=== PATIENT | female | born 1985 | race Caucasian/White ===

== ENCOUNTER 2017-01-17 08:29 | Emergency (ER) | payer OTHER ==
[2017-01-17 08:37] VITALS: TEMP 98.9
[2017-01-17] MEDS ORDERED: SODIUM CHLORIDE 0.9% 1,000 ML IV STA (08:49)
[2017-01-17] MEDS ORDERED: ONDANSETRON 4 MG/2 ML VIAL IVP STA (08:49)
[2017-01-17] MEDS ORDERED: KETOROLAC 30 MG/ML 1 ML VIAL IVP STA (08:49)
--- NOTE | 2017-01-17 08:57 | ED ---
Abdominal Pain HPI - General Chief Complaint: Abdominal Pain Stated Complaint: BACK PAIN, NAUSEA, ABDOMINAL PAIN Time Seen by Provider: 01/17/17 08:38 Source: patient, RN notes reviewed Mode of arrival: ambulatory Limitations: no limitations - History of Present Illness Initial Comments: 32-year-old female presents to the emergency department with a chief complaint of back pain abdominal pain. Patient states she's had it for the past few days. Patient states that she feels bloated with some nausea. Patient states that she has a history kidney stones her back pain feels much like that but the abdominal bloating is different. Patient denies any changes in urination any blood in the urine. Patient states she is currently finishing her menstrual cycle. Patient states she has not had any fever chills with this. Patient states that she also assessed by her family. States that she is also significantly that her today as well. He denies any pelvic pain or discomfort. Patient states that she is here to be evaluated. Patient states pain is moderate. Patient states that there is no radiation just seems to be in those 2 spots.Patient denies any recent fever, chills, shortness of breath, chest pain , numbness or tingling, dysuria or hematuria, constipation or diarrhea, headaches or visual changes, or any other current symptoms. - Related Data Home Medications Medication Instructions Recorded Confirmed Ibuprofen [Motrin] 800 mg PO Q8HR PRN 01/17/17 01/17/17 Multivitamins, Thera [Multivitamin] 1 tab PO DAILY 01/17/17 01/17/17 Previous Rx's Medication Instructions Recorded Hydrocodone/Acetaminophen [[place] 1 each PO Q6HR PRN #20 tab 01/17/17 5-325] Ketorolac [Toradol] 10 mg PO Q6HR #20 tab 01/17/17 Ondansetron Odt [Zofran ODT] 4 mg PO Q8HR PRN #20 tab 01/17/17 Tamsulosin [Flomax] 0.4 mg PO DAILY #5 cap 01/17/17 Allergies Allergy/AdvReac Type Severity Reaction Status Date / Time hydrochlorothiazide Allergy Unknown Verified 01/17/17 08:56 Review of Systems ROS Statement: Those systems with pertinent positive or pertinent negative responses have been documented in the HPI. ROS Other: All systems not noted in ROS Statement are negative. Past Medical History Past Medical History: No Reported History Additional Past Medical History / Comment(s): kidney stones History of Any Multi-Drug Resistant Organisms: MRSA Date of last positivie culture/infection: 2015 MDRO Source:: GROIN Past Surgical History: Section, Cholecystectomy Additional Past Surgical History / Comment(s): laser kidney stone removal Past Psychological History: No Psychological Hx Reported Smoking Status: Current every day smoker Past Alcohol Use History: None Reported Past Drug Use History: None Reported General Exam - General Exam Comments Initial Comments: General: The patient is awake and alert, in no distress, and does not appear acutely ill. Eye: Pupils are equal, round and reactive to light, extra-ocular movements are intact; there is normal conjunctiva bilaterally. No signs of icterus. Ears, nose, mouth and throat: There are moist mucous membranes and no oral lesions. Neck: The neck is supple, there is no tenderness. Cardiovascular: There is a regular rate and rhythm. No murmur, rub or gallop is appreciated. Respiratory: Lungs are clear to auscultation, respirations are non-labored, breath sounds are equal. No wheezes, stridor, rales, or rhonchi. Gastrointestinal: Soft, non-distended, non-tender abdomen without masses or organomegaly noted. There is no rebound or guarding present. No CVA tenderness. Bowel sounds are unremarkable. Back: There is no tenderness to palpation in the midline. There is no obvious deformity. No rashes noted. Musculoskeletal: Normal ROM, no tenderness, There is no pedal edema. There is no calf tenderness or swelling. Sensation intact. Pulses equal bilaterally 2+. Neurological: CN II-XII intact, There are no obvious motor or sensory deficits. Coordination appears grossly intact. Speech is normal. Skin: Skin is warm and dry and no rashes or lesions are noted. Psychiatric: Cooperative, appropriate mood & affect, normal judgment. Limitations: no limitations Course Vital Signs 01/17/17 01/17/17 08:34 09:04 Temperature 98.9 F Pulse Rate 105 H 92 Respiratory 20 16 Rate Blood Pressure 141/69 136/72 O2 Sat by Pulse 99 98 Oximetry Medical Decision Making - Medical Decision Making 32-year-old female presents emergency Department chief complaint of back pain. Patient does have blood in the urine the CAT scan initially 2 mm kidney stone but nothing in the ureter. The suspicion is patient most likely does have a ureteral stone that maybe his chest as well as she has recently passed. She states that the pain is much like that feeling difference with little bit of bloating. Patient's CAT scan is reviewed and the results were reviewed discussed with radiologist Dr. Christianson patient states he did not see the appendix however he also did not see any swelling or irritation around the appendix area to be suspicious for appendicitis. At this time we discussed with the patient. We discussed that this medication is most likely the pain is due to a possible stone however we discussed other etiologies discussed return parameters and follow-up. Patient states she understood she is given the plan. Patient was offered a pelvic exam she states she slept testing on the urine to help with her doctor for pelvic pain and states that she understood and all his questions have been answered. She'll be discharged home. - Lab Data Result diagrams: 01/17/17 08:50 01/17/17 08:50 Lab Results 01/17/17 01/17/17 01/17/17 Range/Units 08:50 08:50 08:50 WBC 13.9 H (3.8-10.6) k/uL RBC 4.42 (3.80-5.40) m/uL Hgb 12.4 (11.4-16.0) gm/dL Hct 38.5 (34.0-46.0) % MCV 87.2 (80.0-100.0) fL MCH 28.0 (25.0-35.0) pg MCHC 32.1 (31.0-37.0) g/dL RDW 14.9 (11.5-15.5) % Plt Count 273 (150-450) k/uL Neutrophils % 69 % Lymphocytes % 23 % Monocytes % 4 % Eosinophils % 3 % Basophils % 1 % Neutrophils # 9.6 H (1.3-7.7) k/uL Lymphocytes # 3.1 (1.0-4.8) k/uL Monocytes # 0.6 (0-1.0) k/uL Eosinophils # 0.4 (0-0.7) k/uL Basophils # 0.1 (0-0.2) k/uL Sodium 144 (137-145) mmol/L Potassium 4.2 (3.5-5.1) mmol/L Chloride 111 H (98-107) mmol/L Carbon Dioxide 20 L (22-30) mmol/L Anion Gap 13 mmol/L BUN 14 (7-17) mg/dL Creatinine 0.70 (0.52-1.04) mg/dL Est GFR (MDRD) Af Amer >60 (>60 ml/min/1.73 sqM) Est GFR (MDRD) Non-Af >60 (>60 ml/min/1.73 sqM) Glucose 100 H (74-99) mg/dL Calcium 9.0 (8.4-10.2) mg/dL Total Bilirubin 0.3 (0.2-1.3) mg/dL AST 17 (14-36) U/L ALT 17 (9-52) U/L Alkaline Phosphatase 80 (38-126) U/L Total Protein 7.4 (6.3-8.2) g/dL Albumin 3.8 (3.5-5.0) g/dL Amylase 58 (30-110) U/L Lipase 70 (23-300) U/L Urine Color Urine Appearance (Clear) Urine pH (5.0-8.0) Ur Specific [place] (1.001-1.035) Urine Protein (Negative) Urine Glucose (UA) (Negative) Urine Ketones (Negative) Urine Blood (Negative) Urine Nitrate (Negative) Urine Bilirubin (Negative) Urine Urobilinogen (<2.0) mg/dL Ur Leukocyte Esterase (Negative) Urine RBC (0-5) /hpf Urine WBC (0-5) /hpf Ur Squamous Epith Cells (0-4) /hpf Urine Mucus (None) /hpf Urine HCG, Qual Not Detected (Not Detectd) 01/17/17 Range/Units 08:50 WBC (3.8-10.6) k/uL RBC (3.80-5.40) m/uL Hgb (11.4-16.0) gm/dL Hct (34.0-46.0) % MCV (80.0-100.0) fL MCH (25.0-35.0) pg MCHC (31.0-37.0) g/dL RDW (11.5-15.5) % Plt Count (150-450) k/uL Neutrophils % % Lymphocytes % % Monocytes % % Eosinophils % % Basophils % % Neutrophils # (1.3-7.7) k/uL Lymphocytes # (1.0-4.8) k/uL Monocytes # (0-1.0) k/uL Eosinophils # (0-0.7) k/uL Basophils # (0-0.2) k/uL Sodium (137-145) mmol/L Potassium (3.5-5.1) mmol/L Chloride (98-107) mmol/L Carbon Dioxide (22-30) mmol/L Anion Gap mmol/L BUN (7-17) mg/dL Creatinine (0.52-1.04) mg/dL Est GFR (MDRD) Af Amer (>60 ml/min/1.73 sqM) Est GFR (MDRD) Non-Af (>60 ml/min/1.73 sqM) Glucose (74-99) mg/dL Calcium (8.4-10.2) mg/dL Total Bilirubin (0.2-1.3) mg/dL AST (14-36) U/L ALT (9-52) U/L Alkaline Phosphatase (38-126) U/L Total Protein (6.3-8.2) g/dL Albumin (3.5-5.0) g/dL Amylase (30-110) U/L Lipase (23-300) U/L Urine Color Light Red Urine Appearance Cloudy H (Clear) Urine pH 5.5 (5.0-8.0) Ur Specific [place] 1.024 (1.001-1.035) Urine Protein 1+ H (Negative) Urine Glucose (UA) Negative (Negative) Urine Ketones Trace H (Negative) Urine Blood Large H (Negative) Urine Nitrate Negative (Negative) Urine Bilirubin Negative (Negative) Urine Urobilinogen 2.0 (<2.0) mg/dL Ur Leukocyte Esterase Large H (Negative) Urine RBC >182 H (0-5) /hpf Urine WBC 84 H (0-5) /hpf Ur Squamous Epith Cells 3 (0-4) /hpf Urine Mucus Moderate H (None) /hpf Urine HCG, Qual (Not Detectd) - Radiology Data Radiology results: report reviewed, image reviewed Disposition Clinical Impression: Flank pain, Hematuria Disposition: HOME SELF-CARE Condition: Stable Instructions: Abdominal Pain (ED) Additional Instructions: Please use medication as discussed. Please follow up with family doctor if symptoms have not improved over the next two days. Please return to the emergency room if your symptoms increase or worsen or for any other concerns. Prescriptions: Hydrocodone/Acetaminophen [[place] 5-325] 1 each PO Q6HR PRN #20 tab PRN Reason: Pain Ketorolac [Toradol] 10 mg PO Q6HR #20 tab Ondansetron Odt [Zofran ODT] 4 mg PO Q8HR PRN #20 tab PRN Reason: Nausea Tamsulosin [Flomax] 0.4 mg PO DAILY #5 cap Referrals: Marie Washington MD [Primary Care Provider] - 1-2 days Benjamin Aguilar MD [STAFF PHYSICIAN] - 1-2 days Time of Disposition: 10:42
[2017-01-17 09:05] LABS: Basophils # (A) 0.1 k/uL (0-0.2); Basophils % (A) 1 %; CHCM 32.3; Eosinophils # (A) 0.4 k/uL (0-0.7); Eosinophils % (A) 3 %; HCT 38.5 % (34.0-46.0); HDW 2.58; HGB 12.4 gm/dL (11.4-16.0); Luc # (Auto) 0.15; Luc % (Auto) 1; Lymphocytes # (A) 3.1 k/uL (1.0-4.8); Lymphocytes % (A) 23 %; MCHC 32.1 g/dL (31.0-37.0); MCV 87.2 fL (80.0-100.0); Monocytes # (A) 0.6 k/uL (0-1.0); Monocytes % (A) 4 %; Neutrophils # (A) 9.6 k/uL (1.3-7.7); Neutrophils % (A) 69 %; RBC 4.42 m/uL (3.80-5.40); RDW 14.9 % (11.5-15.5); WBC 13.9 k/uL (3.8-10.6)
[2017-01-17 09:12] LABS: Appearance,Urine Cloudy (Clear); Bilirubin,Urine Negative (Negative); Glucose,Urine (UA) Negative (Negative); Ketones,Urine Trace (Negative); Leukocyte Esterase,Urine Large (Negative); Mucus,Urine Moderate /hpf; Nitrite,Urine Negative (Negative); PH, Urine 5.5 (5.0-8.0); Particle Count 9736; Protein,Urine 1+ (Negative); RBC,Urine >182 /hpf (0-5); Specific Gravity,Urine 1.024 (1.001-1.035); Squamous Epithelial Cell,Urine 3 /hpf (0-4); UA Billing (MACRO vs. MICRO) MICRO; WBC,Urine 84 /hpf (0-5)
[2017-01-17 09:16] LABS: ALT 17 U/L (9-52); AST 17 U/L (14-36); Alkaline Phosphatase 80 U/L (38-126); Amylase 58 U/L (30-110); Anion Gap 13 mmol/L; Blood Urea Nitrogen 14 mg/dL (7-17); Carbon Dioxide 20 mmol/L (22-30); Chloride 111 mmol/L (98-107); Glucose 100 mg/dL (74-99); Non-African American GFR(MDRD) >60 (>60 ml/min/1.73 sqM); Potassium 4.2 mmol/L (3.5-5.1); Sodium 144 mmol/L (137-145); Total Bilirubin 0.3 mg/dL (0.2-1.3); Total Protein 7.4 g/dL (6.3-8.2)
--- NOTE | 2017-01-17 09:35 | XR ---
EXAMINATION TYPE: XR KUB DATE OF EXAM: 01/17/2017 9:25 AM CLINICAL HISTORY: Left posterior abdominal pain since Sunday. TECHNIQUE: 2 upright KUB images of the abdomen are obtained. COMPARISON: CT abdomen and pelvis April 08, 2016. FINDINGS: Scattered gas is seen in non-distended stomach and small bowel loops. Gas and fecal mater ial is seen in non-distended colon. Loss of normal haustral distal left colon could reflect spasm michael mary colitis. Metallic IUD is redemonstrated overlying the pelvis. Cholecystectomy clips are present. No pneumoperitoneum is seen. Lung bases are clear. Osseous structures are intact. IMPRESSION: Overall nonobstructive bowel gas pattern. Possible left lower quadrant colitis. Clinical correlation advised.
--- NOTE | 2017-01-17 10:32 | CT ---
EXAMINATION TYPE: CT abdomen pelvis wo con DATE OF EXAM: 01/17/2017 10:15 AM COMPARISON: Previous study dated 04/08/2016 HISTORY: Back pain and nausea CT DLP: 1735.80 mGycm Automated exposure control for dose reduction was used. FINDINGS: Visualized portions of the lungs are clear. There is no pleural or pericardial fluid. The h eart is not enlarged. Within the abdomen, the gallbladder has been removed. The liver and spleen are normal. Both adrenal glands are normal. There is a 3 mm nonobstructing calculus in the posterior upper pole calyx of the left kidney. The kid neys are otherwise unremarkable. There is no evidence of hydronephrosis. Limited views of the pancreas are normal. There is no significant retroperitoneal, iliac or inguinal adenopathy. The bladder is unremarkable. There is an IUCD within the uterus. Both ovaries are normal. There is no significant diverticular change and there is no evidence of diverticulitis. There is appe ndix is not visualized. Small bowel loops are normal. There is no free fluid and no free air. There is mild hypertrophic spondylosis and degenerative disc disease throughout the thoracic spine. T here is also degenerative disc disease at L5-S1. IMPRESSION: 1. 3 MM, NONOBSTRUCTING CALCULUS IN THE POSTERIOR POLE CALYX OF THE LEFT KIDNEY. 2. MILD DEGENERATIVE CHANGES WITHIN THE SPINE.
[2017-01-17 10:53] VITALS: BP 121/65; PULSE 75; RESP 14
== END 2017-01-17 11:10 | disposition home or self-care (01) ==
LOC: EC 08:29
DX: R10.9 Unspecified abdominal pain (principal); R31.9 Hematuria, unspecified; R11.0 Nausea; M54.9 Dorsalgia, unspecified; R14.0 Abdominal distension (gaseous); N20.0 Calculus of kidney; Z87.442 Personal history of urinary calculi; F17.200 Nicotine dependence, unspecified, uncomplicated; Z86.14 Personal history of Methicillin resistant Staphylococcus aureus infection; Z88.8 Allergy status to other drugs, medicaments and biological substances
CPT/HCPCS: 36415; 80053; 87591; 87491; 82150; 83690; 85025; 81001; 81025; 87040; 87086; 74000; 74176; 99284; 96374; 96375; 96361; J2405; J1885

== ENCOUNTER 2018-02-15 09:21 | Observation (INO) | payer OTHER ==
[2018-02-15] MEDS ORDERED: NALOXONE 0.4 MG/ML 10 ML VIAL IVP STA (09:25)
[2018-02-15] MEDS ORDERED: SODIUM CHLORIDE 0.9% 1,000 ML IV ONE ×2 (09:35→11:14)
[2018-02-15 09:37] LABS: Glucose,Whole Blood 179 mg/dL (75-99)
--- NOTE | 2018-02-15 09:39 | ED ---
General Adult HPI - General Chief complaint: Altered Mental Status Stated complaint: altered mental Time Seen by Provider: 02/15/18 09:21 Source: patient, EMS, RN notes reviewed Mode of arrival: EMS Limitations: no limitations - History of Present Illness Initial comments: This is a 33-year-old female presents emergency Department after she was found unresponsive. EMS got a call from responsiveness when he arrived the patient was unresponsive however with painful stimuli the patient became arousable but was unable to tell them what happened. She did state us that she felt weird so she called a friend and that is when her friend found her unresponsive. Patient denies any drug use. Patient states she's having some chest pain and a mild headache. Patient denies doing anything different this morning. But she' s not fully alert and oriented at this time. Patient denies any abdominal pain. Patient denies any recent fever chills or cough. Patient denies any neck pain. Patient denies any vomiting or diarrhea. Patient denies any injury or trauma. - Related Data Home Medications Medication Instructions Recorded Confirmed Ergocalciferol (Vitamin D2) 50,000 unit PO Q7D 02/15/18 02/15/18 [Vitamin D2] Phentermine HCl [Adipex-P] 37.5 mg PO QAM 02/15/18 02/15/18 metroNIDAZOLE [Flagyl] 2,000 mg PO ONCE 02/15/18 02/15/18 Allergies Allergy/AdvReac Type Severity Reaction Status Date / Time hydrochlorothiazide Allergy Rash/Hives Verified 02/15/18 10:11 Review of Systems ROS Statement: Those systems with pertinent positive or pertinent negative responses have been documented in the HPI. ROS Other: All systems not noted in ROS Statement are negative. Past Medical History Past Medical History: No Reported History, Renal Disease Additional Past Medical History / Comment(s): kidney stones History of Any Multi-Drug Resistant Organisms: MRSA Date of last positivie culture/infection: 2015 MDRO Source:: GROIN Past Surgical History: Section, Cholecystectomy Additional Past Surgical History / Comment(s): laser kidney stone removal Past Psychological History: No Psychological Hx Reported Smoking Status: Current every day smoker Past Alcohol Use History: None Reported Past Drug Use History: None Reported General Exam - General Exam Comments Initial Comments: GENERAL: Patient is well-developed and well-nourished. Patient is nontoxic and well- hydrated and is in mild distress. ENT: Neck is soft and supple. No significant lymphadenopathy is noted. Oropharynx is clear. Moist mucous membranes. Neck has full range of motion without eliciting any pain. EYES: The sclera were anicteric and conjunctiva were pink and moist. Extraocular movements were intact and pupils were equal round and reactive to light. Eyelids were unremarkable. PULMONARY: Unlabored respirations. Good breath sounds bilaterally. No audible rales rhonchi or wheezing was noted. CARDIOVASCULAR: There is a regular rate and rhythm without any murmurs gallops or rub ABDOMEN: Soft and nontender with normal bowel sounds. Patient is morbidly obese SKIN: Skin is clear with no lesions or rashes and otherwise unremarkable. NEUROLOGIC: Patient is alert and oriented 2. Cranial nerves II through XII are grossly intact. Motor and sensory are also intact. Normal speech, volume and content. Symmetrical smile. MUSCULOSKELETAL: Normal extremities with adequate strength and full range of motion. LYMPHATICS: No significant lymphadenopathy is noted PSYCHIATRIC: Unable to assess because she is not fully oriented Limitations: no limitations Course Vital Signs 02/15/18 02/15/18 02/15/18 09:22 09:35 09:52 Temperature 95.9 F L 97.1 F L Pulse Rate 127 H 110 H 96 Respiratory 20 16 16 Rate Blood Pressure 85/49 84/52 108/59 O2 Sat by Pulse 87 L 91 L 98 Oximetry 02/15/18 02/15/18 10:21 10:37 Temperature Pulse Rate 101 H 99 Respiratory 18 16 Rate Blood Pressure 105/62 O2 Sat by Pulse 99 100 Oximetry Medical Decision Making - Medical Decision Making EKG shows sinus tachycardia at 112 bpm AK interval 148 QRSs 84 QT interval 370 QTC is 505. Patient's EKG shows no ST segment elevation or depression or T wave abnormalities are noted. CT of the brain shows no acute abnormality. Chest x-ray shows no acute abnormality. I reevaluated the patient she was now alert and oriented 3 and a friend was at the bedside and agree that she is back to her baseline. Patient had no further information about her unresponsive episode this morning. I spoke with Dr. Peck he agreed to admit the patient admitted the patient I wrote admitting orders - Lab Data Result diagrams: 02/15/18 09:36 02/15/18 09:36 Lab Results 02/15/18 02/15/18 02/15/18 Range/Units 09:35 09:36 09:36 WBC (3.8-10.6) k/uL RBC (3.80-5.40) m/uL Hgb (11.4-16.0) gm/dL Hct (34.0-46.0) % MCV (80.0-100.0) fL MCH (25.0-35.0) pg MCHC (31.0-37.0) g/dL RDW (11.5-15.5) % Plt Count (150-450) k/uL Neutrophils % % Lymphocytes % % Monocytes % % Eosinophils % % Basophils % % Neutrophils # (1.3-7.7) k/uL Lymphocytes # (1.0-4.8) k/uL Monocytes # (0-1.0) k/uL Eosinophils # (0-0.7) k/uL Basophils # (0-0.2) k/uL PT 10.3 (9.0-12.0) sec INR 1.1 (<1.2) APTT 24.2 (22.0-30.0) sec D-Dimer 0.50 (<0.60) mg/L FEU Sodium 143 (137-145) mmol/L Potassium 3.1 L (3.5-5.1) mmol/L Chloride 111 H (98-107) mmol/L Carbon Dioxide 19 L (22-30) mmol/L Anion Gap 13 mmol/L BUN 14 (7-17) mg/dL Creatinine 0.77 (0.52-1.04) mg/dL Est GFR (CKD-EPI)AfAm >90 (>60 ml/min/1.73 sqM) Est GFR (CKD-EPI)NonAf >90 (>60 ml/min/1.73 sqM) Glucose 151 H (74-99) mg/dL POC Glucose (mg/dL) 179 H (75-99) mg/dL POC Glu Fixed Capital Clerk ID McDaid, Amaris Calcium 8.9 (8.4-10.2) mg/dL Total Bilirubin 0.4 (0.2-1.3) mg/dL AST 11 L (14-36) U/L ALT 16 (9-52) U/L Alkaline Phosphatase 82 (38-126) U/L Total Creatine Kinase (30-135) U/L CK-MB (CK-2) (0.0-2.4) ng/mL CK-MB (CK-2) Rel Index Troponin I (0.000-0.034) ng/mL Total Protein 6.6 (6.3-8.2) g/dL Albumin 3.5 (3.5-5.0) g/dL Urine Color Urine Appearance (Clear) Urine pH (5.0-8.0) Ur Specific [place] (1.001-1.035) Urine Protein (Negative) Urine Glucose (UA) (Negative) Urine Ketones (Negative) Urine Blood (Negative) Urine Nitrite (Negative) Urine Bilirubin (Negative) Urine Urobilinogen (<2.0) mg/dL Ur Leukocyte Esterase (Negative) Urine RBC (0-5) /hpf Urine WBC (0-5) /hpf Urine Bacteria (None) /hpf Urine Mucus (None) /hpf Salicylates <1.0 mg/dL Urine Opiates Screen (NotDetected) Ur Oxycodone Screen (NotDetected) Urine Methadone Screen (NotDetected) Ur Propoxyphene Screen (NotDetected) Acetaminophen <10.0 ug/mL Ur Barbiturates Screen (NotDetected) U Tricyclic Antidepress (NotDetected) Ur Phencyclidine Scrn (NotDetected) Ur Amphetamines Screen (NotDetected) U Methamphetamines Scrn (NotDetected) U Benzodiazepines Scrn (NotDetected) Urine Cocaine Screen (NotDetected) U Marijuana (THC) Screen (NotDetected) 02/15/18 02/15/18 02/15/18 Range/Units 09:36 09:36 10:31 WBC 13.9 H (3.8-10.6) k/uL RBC 4.61 (3.80-5.40) m/uL Hgb 12.1 (11.4-16.0) gm/dL Hct 38.7 (34.0-46.0) % MCV 83.9 (80.0-100.0) fL MCH 26.1 (25.0-35.0) pg MCHC 31.1 (31.0-37.0) g/dL RDW 14.6 (11.5-15.5) % Plt Count 268 (150-450) k/uL Neutrophils % 52 % Lymphocytes % 44 % Monocytes % 2 % Eosinophils % 1 % Basophils % 0 % Neutrophils # 7.2 (1.3-7.7) k/uL Lymphocytes # 6.0 H (1.0-4.8) k/uL Monocytes # 0.3 (0-1.0) k/uL Eosinophils # 0.1 (0-0.7) k/uL Basophils # 0.0 (0-0.2) k/uL PT (9.0-12.0) sec INR (<1.2) APTT (22.0-30.0) sec D-Dimer (<0.60) mg/L FEU Sodium (137-145) mmol/L Potassium (3.5-5.1) mmol/L Chloride (98-107) mmol/L Carbon Dioxide (22-30) mmol/L Anion Gap mmol/L BUN (7-17) mg/dL Creatinine (0.52-1.04) mg/dL Est GFR (CKD-EPI)AfAm (>60 ml/min/1.73 sqM) Est GFR (CKD-EPI)NonAf (>60 ml/min/1.73 sqM) Glucose (74-99) mg/dL POC Glucose (mg/dL) (75-99) mg/dL POC Glu Fixed Capital Clerk ID Calcium (8.4-10.2) mg/dL Total Bilirubin (0.2-1.3) mg/dL AST (14-36) U/L ALT (9-52) U/L Alkaline Phosphatase (38-126) U/L Total Creatine Kinase 42 (30-135) U/L CK-MB (CK-2) 0.2 (0.0-2.4) ng/mL CK-MB (CK-2) Rel Index 0.5 Troponin I <0.012 (0.000-0.034) ng/mL Total Protein (6.3-8.2) g/dL Albumin (3.5-5.0) g/dL Urine Color Yellow Urine Appearance Clear (Clear) Urine pH 7.0 (5.0-8.0) Ur Specific [place] 1.009 (1.001-1.035) Urine Protein 1+ H (Negative) Urine Glucose (UA) 1+ H (Negative) Urine Ketones Negative (Negative) Urine Blood Negative (Negative) Urine Nitrite Negative (Negative) Urine Bilirubin Negative (Negative) Urine Urobilinogen <2.0 (<2.0) mg/dL Ur Leukocyte Esterase Negative (Negative) Urine RBC 1 (0-5) /hpf Urine WBC 2 (0-5) /hpf Urine Bacteria Rare H (None) /hpf Urine Mucus Rare H (None) /hpf Salicylates mg/dL Urine Opiates Screen Not Detected (NotDetected) Ur Oxycodone Screen Not Detected (NotDetected) Urine Methadone Screen Not Detected (NotDetected) Ur Propoxyphene Screen Not Detected (NotDetected) Acetaminophen ug/mL Ur Barbiturates Screen Not Detected (NotDetected) U Tricyclic Antidepress Not Detected (NotDetected) Ur Phencyclidine Scrn Not Detected (NotDetected) Ur Amphetamines Screen Detected H (NotDetected) U Methamphetamines Scrn Not Detected (NotDetected) U Benzodiazepines Scrn Not Detected (NotDetected) Urine Cocaine Screen Not Detected (NotDetected) U Marijuana (THC) Screen Not Detected (NotDetected) Disposition Clinical Impression: Altered mental status Disposition: ADMITTED IP TO THIS HOSP Referrals: Marie Washington MD [Primary Care Provider] - 1-2 days Time of Disposition: 11:14
[2018-02-15 09:59] LABS: Basophils % (A) 0 %; Eosinophils # (A) 0.1 k/uL (0-0.7); Eosinophils % (A) 1 %; HCT 38.7 % (34.0-46.0); HGB 12.1 gm/dL (11.4-16.0); Lymphocytes % (A) 44 %; MCH 26.1 pg (25.0-35.0); MCHC 31.1 g/dL (31.0-37.0); MCV 83.9 fL (80.0-100.0); Mean Platelet Volume 10.1; Monocytes # (A) 0.3 k/uL (0-1.0); Monocytes % (A) 2 %; Neutrophils # (A) 7.2 k/uL (1.3-7.7); Neutrophils % (A) 52 %; Platelet Count 268 k/uL (150-450); RBC 4.61 m/uL (3.80-5.40); RDW 14.6 % (11.5-15.5); WBC 13.9 k/uL (3.8-10.6)
[2018-02-15 10:09] LABS: ALT 16 U/L (9-52); AST 11 U/L (14-36); Acetaminophen <10.0 ug/mL; Albumin 3.5 g/dL (3.5-5.0); Alkaline Phosphatase 82 U/L (38-126); Anion Gap 13 mmol/L; Blood Urea Nitrogen 14 mg/dL (7-17); Calcium 8.9 mg/dL (8.4-10.2); Carbon Dioxide 19 mmol/L (22-30); Chloride 111 mmol/L (98-107); Glucose 151 mg/dL (74-99); Potassium 3.1 mmol/L (3.5-5.1); Salicylate <1.0 mg/dL; Sodium 143 mmol/L (137-145); Total Bilirubin 0.4 mg/dL (0.2-1.3); Total Protein 6.6 g/dL (6.3-8.2)
[2018-02-15 10:10] LABS: D-Dimer 0.5 mg/L FEU (<0.60)
[2018-02-15 10:16] LABS: INR 1.1 (<1.2); Partial Thromboplastin Time 24.2 sec (22.0-30.0); Prothrombin Time 10.3 sec (9.0-12.0)
[2018-02-15 10:18] LABS: Creatine Kinase 42 U/L (30-135)
--- NOTE | 2018-02-15 10:20 | CT ---
EXAMINATION TYPE: CT brain wo con DATE OF EXAM: 02/15/2018 COMPARISON: NONE HISTORY: Altered mental status CT DLP: [address] of the brain was performed. The ventricles, basal cisterns and sulci overlying the cerebral convexities demonstrate a normal appe arance. There is no evidence for intracranial hemorrhage or sulcal effacement. No mass effects are seen. Osseous calvarium is intact. If symptoms persist consider MRI as clinically warranted. IMPRESSION: 1. No acute intracranial process is seen at this time.
--- NOTE | 2018-02-15 10:24 | XR ---
EXAMINATION TYPE: XR chest 2V DATE OF EXAM: 02/15/2018 COMPARISON: NONE HISTORY: Chest pain TECHNIQUE: Frontal and lateral views of the chest are obtained. FINDINGS: There is no focal air space opacity. Mild peribronchial cuffing could reflect changes of bronchitis. No evidence for pneumothorax. No pleural effusion. The cardiac silhouette size is within normal limits. The osseous structures are grossly intact. IMPRESSION: 1. Correlate for bronchitis.
[2018-02-15 10:31] LABS: Creatine Kinase MB 0.2 ng/mL (0.0-2.4); Troponin I <0.012 ng/mL (0.000-0.034)
[2018-02-15 10:41] LABS: Appearance,Urine Clear (Clear); Bacteria,Urine Rare /hpf; Bilirubin,Urine Negative (Negative); Blood,Urine Negative (Negative); Color,Urine Yellow; Glucose,Urine (UA) 1+ (Negative); Ketones,Urine Negative (Negative); Leukocyte Esterase,Urine Negative (Negative); Mucus,Urine Rare /hpf; Nitrite,Urine Negative (Negative); Protein,Urine 1+ (Negative); RBC,Urine 1 /hpf (0-5); Specific Gravity,Urine 1.009 (1.001-1.035); Urobilinogen,Urine <2.0 mg/dL (<2.0); WBC,Urine 2 /hpf (0-5)
[2018-02-15 10:52] LABS: Amphetamine Screen,Urine Detected (NotDetected); Barbiturate Screen,Urine Not Detected (NotDetected); Benzodiazepines Screen,Urine Not Detected (NotDetected); Cocaine Screen,Urine Not Detected (NotDetected); Methadone Screen, Urine Not Detected (NotDetected); Opiate Screen,Urine Not Detected (NotDetected); Oxycodone Screen, Urine Not Detected (NotDetected); Phencyclidine Screen,Urine Not Detected (NotDetected); Tricyclic Antidepressant,Urine Not Detected (NotDetected); Urn Cannabinoid Scrn Not Detected (NotDetected)
[2018-02-15] MEDS ORDERED: POTASSIUM CHLORIDE ER 20 MEQ TAB.ER PO STA (13:51)
[2018-02-15] MEDS: cefTRIAXone IN SWFI 1,000 MG/10 ML SYRINGE IVP SCH (16:18)
--- NOTE | 2018-02-15 18:47 | P.CONS ---
History of Present Illness - Reason for Consult Consult date: 02/15/18 Altered mental status - Chief Complaint Altered mental status - History of Present Illness Is a 33-year-old female being evaluated by the neurology service for unresponsiveness. EMS was called and patient was found obtunded but arousable. She denied any illness headaches or Drug use. She said that earlier she was having some chest pain and a mild headache. In the emergency room she was still not fully alert and oriented. No sphincter incontinence was noted. No tongue biting. No significant postictal state was observed. Her head CT was normal. Chest x-ray showed possible bronchitis. She did have an elevated white count and glucose level in the ER but was afebrile. Her heart rate was elevated and blood pressure was quite low. She has been taking phentermine recently. At the time of my exam she is resting comfortably in bed in no acute distress. Review of Systems All systems: negative Constitutional: Reports as per HPI Past Medical History Past Medical History: Renal Disease Additional Past Medical History / Comment(s): Multiple kidney stones, migraines , sinus problems, peptic ulcer, upper GI bleed, currently took ABX for trichamonas exposure then yeast infection, currently on med (past 2-3 months for wt loss). History of Any Multi-Drug Resistant Organisms: MRSA Year Discovered:: 2016 MDRO Source:: GROIN Past Surgical History: Section, Cholecystectomy Additional Past Surgical History / Comment(s): Lithotripsy for kidney stone removal Past Anesthesia/Blood Transfusion Reactions: No Reported Reaction Smoking Status: Current every day smoker - Past Family History Father Family Medical History: Coronary Artery Disease (CAD), Myocardial Infarction ([place] ) Additional Family Medical History / Comment(s): Father had a [place] at the age of 60yrs. Mother Family Medical History: Diabetes Mellitus, Hypertension, Osteoarthritis (OA) Medications and Allergies Home Medications Medication Instructions Recorded Confirmed Type Ergocalciferol (Vitamin D2) 50,000 unit PO Q7D 02/15/18 02/15/18 History [Vitamin D2] Phentermine HCl [Adipex-P] 37.5 mg PO QAM 02/15/18 02/15/18 History metroNIDAZOLE [Flagyl] 2,000 mg PO ONCE 02/15/18 02/15/18 History Allergies Allergy/AdvReac Type Severity Reaction Status Date / Time hydrochlorothiazide Allergy Rash/Hives Verified 02/15/18 10:11 Physical Exam Vitals: Vital Signs Temp Pulse Pulse Resp BP BP Pulse Ox 02/15/18 15:26 96 18 02/15/18 15:25 97.6 F 96 18 124/81 100 02/15/18 14:06 97.8 F 96 16 120/74 100 02/15/18 12:52 108 H 16 116/72 100 02/15/18 11:39 97 16 128/83 100 02/15/18 10:37 99 16 105/62 100 02/15/18 10:21 101 H 18 99 02/15/18 09:52 96 16 108/59 98 02/15/18 09:35 97.1 F L 110 H 16 84/52 91 L 02/15/18 09:22 95.9 F L 127 H 20 85/49 87 L Intake and Output 02/15/18 02/15/18 02/15/18 06:59 14:59 22:59 Other: Voiding Method Indwelling Catheter Weight 151.5 kg - Constitutional General appearance: cooperative, no acute distress, obese - EENT Eyes: no abnormal pupil, EOMI, PERRLA, no ptosis ENT: hearing grossly normal - Neck Neck: normal ROM, no rigidity - Respiratory Respiratory: negative: prolonged expiration, prolonged inspiration - Cardiovascular Rhythm: regular - Gastrointestinal General gastrointestinal: no distended, no tenderness - Neurologic The patient is alert awake and oriented 3. Speech and language are normal. There is no facial asymmetry. Strength is 5 out of 5 in bilateral upper and lower extremities. There is no sensory deficit. No tremors or seizures are seen. Cranial nerves II through XII are intact globally. Results CBC & Chem 7: 02/15/18 09:36 02/15/18 09:36 Labs: Abnormal Lab Results - Last 24 Hours (Table) 02/15/18 02/15/18 02/15/18 Range/Units 09:35 09:36 09:36 WBC 13.9 H (3.8-10.6) k/uL Lymphocytes # 6.0 H (1.0-4.8) k/uL Potassium 3.1 L (3.5-5.1) mmol/L Chloride 111 H (98-107) mmol/L Carbon Dioxide 19 L (22-30) mmol/L Glucose 151 H (74-99) mg/dL POC Glucose (mg/dL) 179 H (75-99) mg/dL AST 11 L (14-36) U/L Urine Protein (Negative) Urine Glucose (UA) (Negative) Urine Bacteria (None) /hpf Urine Mucus (None) /hpf Ur Amphetamines Screen (NotDetected) 02/15/18 Range/Units 10:31 WBC (3.8-10.6) k/uL Lymphocytes # (1.0-4.8) k/uL Potassium (3.5-5.1) mmol/L Chloride (98-107) mmol/L Carbon Dioxide (22-30) mmol/L Glucose (74-99) mg/dL POC Glucose (mg/dL) (75-99) mg/dL AST (14-36) U/L Urine Protein 1+ H (Negative) Urine Glucose (UA) 1+ H (Negative) Urine Bacteria Rare H (None) /hpf Urine Mucus Rare H (None) /hpf Ur Amphetamines Screen Detected H (NotDetected) Assessment and Plan (1) Syncope and collapse Current Visit: Yes Status: Acute Code(s): R55 - SYNCOPE AND COLLAPSE SNOMED Code(s): 875927904 (2) Leukocytosis Current Visit: Yes Status: Acute Code(s): D72.829 - ELEVATED WHITE BLOOD CELL COUNT, UNSPECIFIED SNOMED Code(s): 509450233 (3) Tachycardia Current Visit: Yes Status: Acute Code(s): R00.0 - TACHYCARDIA, UNSPECIFIED SNOMED Code(s): 5107197 (4) Low blood pressure reading Current Visit: Yes Status: Acute Code(s): R03.1 - NONSPECIFIC LOW BLOOD- PRESSURE READING SNOMED Code(s): 583653460 (5) Altered mental status Current Visit: Yes Status: Resolved Code(s): R41.82 - ALTERED MENTAL STATUS , UNSPECIFIED SNOMED Code(s): 475282817 (6) Hypokalemia Current Visit: Yes Status: Acute Code(s): E87.6 - HYPOKALEMIA SNOMED Code( s): 46271156 Plan: This patient has experienced a syncopal episode with a period of decreased responsiveness. Doubt any seizure activity. She has no history of this. We will get an EEG. Recommend discontinuation of phentermine. Recommend treating her possible underlying infection. May consider cardiology consultation for her chest pain, tachycardia and low blood pressure. Continue monitoring and treatment for her metabolic abnormalities. I will order a carotid Doppler. We will continue to follow and make recommendations based on the above studies. X I have performed a history and physical on the above patient. I have reviewed the above note, and agree.
[2018-02-15] MEDS: LORATADINE 10 MG TAB PO PRN (20:15)
[2018-02-15] MEDS: ACETAMINOPHEN TAB 325 MG TAB PO PRN (20:15)
[2018-02-15 21:14] LABS: Hemoglobin A1C 5.4 % (4.0-6.0)
--- NOTE | 2018-02-15 22:31 | US ---
EXAMINATION TYPE: US carotid duplex BILAT DATE OF EXAM: 02/15/2018 COMPARISON: NONE CLINICAL HISTORY: syncope. Altered mental status, syncope EXAM MEASUREMENTS: RIGHT: Peak Systolic Velocity (PSV) cm/sec ----- Right CCA: 104.1 ----- Right ICA: 138.3 ----- Right ECA: 173.3 ICA/CCA ratio: 1.3 RIGHT: End Diastole cm/sec ----- Right CCA: 31.4 ----- Right ICA: 75.3 ----- Right ECA: 40.9 LEFT: Peak Systolic Velocity (PSV) cm/sec ----- Left CCA: 139.4 ----- Left ICA: 139.4 ----- Left ECA: 137.2 ICA/CCA ratio: 1.0 LEFT: End Diastole cm/sec ----- Left CCA: 40.8 ----- Left ICA: 49.5 ----- Left ECA: 29.8 VERTEBRALS (direction of flow): Right Vertebral: Antegrade Left Vertebral: Antegrade Rhythm: Normal Elevated velocities: right distal ICA, right mid ECA, left distal CCA, left proximal ICA and left mid ECA, no significant stenosis. IMPRESSION: Multiple segments of elevated velocity suggests 50-70% stenosis in both left and right i nternal carotid arteries. There is antegrade flow in the vertebral arteries. Criteria for Assigning % of Stenosis / Diameter reduction (Estimation based on the indirect measurements of the internal carotid artery velocities (ICA PSV). 1. Normal (no stenosis)=ICA PSV < 125 cm/s: ratio < 2.0: ICA EDV<40 cm/s. 2. Less than 50% stenosis=ICA PSV < 125 cm/s: ratio < 2.0: ICA EDV<40 cm/s. 3. 50 to 69% stenosis=ICA PSV of 125 to 230 cm/s: ration 2.0 ? 4.0: ICA EDV 40-100 cm/s. 4. Greater than 70% stenosis to near occlusion= ICA PSV > 230 cm/s: ratio > 4.0: ICA EDV > 100 cm/s. 5. Near occlusion= ICA PSV velocities may be low or undetectable: variable ratio and ICA EDV. 6. Total occlusion=unable to detect flow.
[2018-02-16 07:16] LABS: Anion Gap 10 mmol/L; Blood Urea Nitrogen 10 mg/dL (7-17); Calcium 8.8 mg/dL (8.4-10.2); Carbon Dioxide 20 mmol/L (22-30); Chloride 112 mmol/L (98-107); Glucose 90 mg/dL (74-99); Potassium 4.2 mmol/L (3.5-5.1); Sodium 142 mmol/L (137-145)
[2018-02-16] MEDS: PANTOPRAZOLE 40 MG TABLET PO SCH (09:31)
[2018-02-16] MEDS: ENOXAPARIN 40 MG/0.4 ML SYRINGE SQ SCH (09:32)
[2018-02-16] MEDS: ACETAMINOPHEN TAB 325 MG TAB PO PRN ×2 (11:51→19:22)
--- NOTE | 2018-02-16 14:21 | CONS ---
CONSULTATION Sonam is a 33-year-old lady who was admitted to hospital with syncope. She does not have any significant past medical history and takes Adipex regularly. She states that yesterday she was somewhat confused and subsequently thinks that she passed out. This thing happened spontaneously. No clear-cut relieving or exacerbating factors. No injury. She came to hospital and got admitted yesterday. Initial neurological evaluation had been negative. EKG does not reveal ischemic changes. Rhythm strips do not show any cardiac arrhythmia. LABS: Show that the creatinine is normal. Hemoglobin is normal. One set of troponin is negative as is the D-dimer and echocardiogram is pending at this time. PAST MEDICAL HISTORY: Negative for hypertension, diabetes, dyslipidemia. MEDICATIONS: Include Flagyl, Adipex, and vitamin D. ALLERGIES: HYDROCHLOROTHIAZIDE. FAMILY HISTORY: Negative for premature coronary artery disease. SOCIAL HISTORY: Negative for smoking, ETOH abuse or drug abuse. REVIEW OF SYSTEMS: HEENT is unremarkable. CARDIAC: As described above. RESPIRATORY: Negative. GI: Negative GENITOURINARY: Negative. ALLERGY/IMMUNOLOGY: Negative. MUSCULOSKELETAL: Negative. ENDOCRINE: Negative. DERM: Negative. CONSTITUTIONAL: Negative. ONCOLOGICAL: Negative. The rest of the system review is not relevant. PHYSICAL EXAM: Comfortable at rest. Vital signs are stable. There is no jugular venous distention. Carotid upstroke is normal. There is no bruit. Chest exam reveals good air entry bilaterally. Heart exam reveals first and second heart sounds. No gallop. No murmur. No rub. Abdomen is soft, nontender. Examination of the extremities did not reveal any edema. Peripheral pulses are felt. Labs show that the potassium is 4.2, creatinine is 0.6, hemoglobin is 12.1. EKG does not reveal ST-T wave changes. Rhythm strips do not show any cardiac arrhythmia. ASSESSMENT: Syncope, rule out cardiac causes. So far the workup is negative. I will obtain a 2D echo. There were no tachy or bradyarrhythmias documented. D-dimer is negative. Cardiac enzymes are negative. From cardiac standpoint, patient is stable. Will review the echocardiogram and if that is negative, she will go home and have outpatient workup. MMODL / IJN: [id number] /
--- NOTE | 2018-02-16 14:38 | P.HPIM ---
History of Present Illness H&P Date: 02/16/18 Chief Complaint: Altered Mental Status Sonam Gr is a 33-year-old female who presented to [facility] emergency Department after she was found unresponsive. EMS received a call from for unresponsiveness when they arrived the patient was unresponsive however with painful stimuli the patient became arousable but was unable to tell them what happened. She did state us that she felt weird so she called a friend and that is when her friend found her unresponsive. Patient denies any drug use. Toxicology screen was negative except for amphetamine patient is on a weight loss medication that contains amphetamine. Patient states she's having some chest pain and a mild headache. She stated that she took a Diflucan pill for a yeast infection on the day of admission, otherwise she denies doing anything unusual she was still not fully alert at the time of evaluation in the emergency room. On review of systems patient is alert and oriented she denies any fever or chills no headache no dizziness no cough no shortness of breath She stated that she was having some chest pain and headache on presentation to emergency room, chest x-ray on presentation was positive for bronchitis, there was no nausea or vomiting no abdominal pain no diarrhea or constipation and no urinary symptoms Past Medical History Past Medical History: Renal Disease Additional Past Medical History / Comment(s): Multiple kidney stones, migraines , sinus problems, peptic ulcer, upper GI bleed, currently took ABX for trichamonas exposure then yeast infection, currently on med (past 2-3 months for wt loss). History of Any Multi-Drug Resistant Organisms: MRSA Date of last positivie culture/infection: 2015 MDRO Source:: GROIN Past Surgical History: Section, Cholecystectomy Additional Past Surgical History / Comment(s): Lithotripsy for kidney stone removal Past Anesthesia/Blood Transfusion Reactions: No Reported Reaction Smoking Status: Current every day smoker - Past Family History Father Family Medical History: Coronary Artery Disease (CAD), Myocardial Infarction ([place] ) Additional Family Medical History / Comment(s): Father had a [place] at the age of 60yrs. Mother Family Medical History: Diabetes Mellitus, Hypertension, Osteoarthritis (OA) Medications and Allergies Home Medications Medication Instructions Recorded Confirmed Type Ergocalciferol (Vitamin D2) 50,000 unit PO Q7D 02/15/18 02/15/18 History [Vitamin D2] Phentermine HCl [Adipex-P] 37.5 mg PO QAM 02/15/18 02/15/18 History metroNIDAZOLE [Flagyl] 2,000 mg PO ONCE 02/15/18 02/15/18 History Allergies Allergy/AdvReac Type Severity Reaction Status Date / Time hydrochlorothiazide Allergy Rash/Hives Verified 02/15/18 10:11 Physical Exam Vitals: Vital Signs Temp Pulse Resp BP Pulse Ox 02/16/18 11:44 97.5 F L 97 18 125/75 99 02/16/18 08:00 99.2 F 94 18 122/69 99 02/16/18 04:00 97.9 F 92 18 102/58 100 02/15/18 23:26 97.9 F 90 18 110/56 98 02/15/18 20:00 98 F 96 18 116/70 100 02/15/18 15:26 96 18 02/15/18 15:25 97.6 F 96 18 124/81 100 Intake and Output 02/15/18 02/16/18 02/16/18 22:59 06:59 14:59 Intake Total 960 480 600 Balance 960 480 600 Intake: Oral 960 480 600 Other: Voiding Method Toilet Toilet Toilet # Voids 2 2 Weight 153.5 kg HEENT head normocephalic and atraumatic Neck is supple no JVD no goiter no lymphadenopathy Chest exam reveals a few scattered crackles no wheezing Cardiac exam reveals regular heart sounds S1 and S2 no gallops no murmurs Abdomen is soft nontender no organomegaly with normal bowel sounds Extremity exam reveals no edema no cyanosis or clubbing Neurological examination reveals no gross deficit Results CBC & Chem 7: 02/15/18 09:36 02/16/18 06:22 Labs: Abnormal Lab Results - Last 24 Hours (Table) 02/16/18 Range/Units 06:22 Chloride 112 H (98-107) mmol/L Carbon Dioxide 20 L (22-30) mmol/L Microbiology - Last 24 Hours (Table) 02/15/18 10:31 Urine Culture - Preliminary Urine,Catheterized Thrombosis Risk Factor Assmnt - Choose All That Apply Any of the Below Risk Factors Present?: Yes Each Factor Represents 1 point: Obesity (BMI >25) Other Risk Factors: No Other congenital or acquired thrombophilia - If yes, enter type in comment: No Thrombosis Risk Factor Assessment Total Risk Factor Score: 1 Thrombosis Risk Factor Assessment Level: Low Risk Assessment and Plan Plan: #1 episode of unresponsiveness #2 hypotension with tachycardia on presentation #3 headache on presentation #4 chest pain on presentation #5 evidence of bronchitis on chest x-ray with mild leukocytosis #6 obesity with use of phentermine Adipex for weight loss Patient was started on IV Rocephin for bronchitis with leukocytosis Cardiology and neurology consultation were requested Carotid Doppler reveals bilateral stenosis of 50-70%, Will consult Dr. Cerda for evaluation Continue current management otherwise will follow in a.m.
--- NOTE | 2018-02-16 14:46 | P.PN ---
Subjective Progress Note Date: 02/16/18 Principal diagnosis: Syncope Is a pleasant 33-year-old female continuing to be evaluated by the neurology service for an episode of syncope and unresponsiveness. She has had no similar episodes since then. She denied any recent illness or drug use. She has a mild headache. She does say that earlier in the day that this happened she was having some chest pain and a mild headache. She had no evidence of seizure activity or postictal state. Her CT of the head in the ER was normal. Chest x- ray showed some possible bronchitis. She had a mildly elevated white count and glucose level in the ER but was afebrile. She had an elevated heart rate and low blood pressure. Cardiology consultation has been placed she did undergo an echocardiogram but results are not available yet. no significant rhythm problem. i did order a carotid doppler that shows 50-70% stenosis of bilateral internal carotid arteries which is quite unusual for her age. cardiovascular consultation has been placed. at the time my exam she is resting comfortably in bed in no acute distress. Objective - Vital Signs Vital signs: Vital Signs Temp 97.5 F L 02/16/18 11:44 Pulse 97 02/16/18 11:44 Resp 18 02/16/18 11:44 BP 125/75 02/16/18 11:44 Pulse Ox 99 02/16/18 11:44 Intake & Output 02/15/18 02/16/18 02/16/18 18:59 06:59 18:59 Intake Total 1440 600 Balance 1440 600 Weight 151.5 kg 153.5 kg Intake: Oral 1440 600 Other: Voiding Method Indwelling Catheter Toilet Toilet # Voids 2 - Constitutional General appearance: Present: no acute distress, obese - EENT Eyes: Present: EOMI, PERRLA. Absent: abnormal pupil, ptosis ENT: Present: hearing grossly normal - Neck Neck: Present: normal ROM. Absent: rigidity - Respiratory Respiratory: negative: prolonged expiration, prolonged inspiration - Cardiovascular Rhythm: regular - Gastrointestinal General gastrointestinal: Absent: distended, tenderness - Neurologic Neurologic Comment(s): The patient is alert awake and oriented 3. Speech and language are normal. There is no facial asymmetry. Strength is 5 out of 5 in bilateral upper and lower extremities. There is no sensory deficit. No tremors or seizures are seen. Cranial nerves II through XII are intact globally. - Labs CBC & Chem 7: 02/15/18 09:36 02/16/18 06:22 Labs: Abnormal Lab Results - Last 24 Hours (Table) 02/16/18 Range/Units 06:22 Chloride 112 H (98-107) mmol/L Carbon Dioxide 20 L (22-30) mmol/L Microbiology - Last 24 Hours (Table) 02/15/18 10:31 Urine Culture - Preliminary Urine,Catheterized Assessment and Plan (1) Syncope and collapse Current Visit: Yes Status: Acute Code(s): R55 - SYNCOPE AND COLLAPSE SNOMED Code(s): 673663538 (2) Leukocytosis Current Visit: Yes Status: Acute Code(s): D72.829 - ELEVATED WHITE BLOOD CELL COUNT, UNSPECIFIED SNOMED Code(s): 535093845 (3) Tachycardia Current Visit: Yes Status: Acute Code(s): R00.0 - TACHYCARDIA, UNSPECIFIED SNOMED Code(s): 2765761 (4) Low blood pressure reading Current Visit: Yes Status: Acute Code(s): R03.1 - NONSPECIFIC LOW BLOOD- PRESSURE READING SNOMED Code(s): 685996996 (5) Altered mental status Current Visit: Yes Status: Resolved Code(s): R41.82 - ALTERED MENTAL STATUS , UNSPECIFIED SNOMED Code(s): 678330812 (6) Hypokalemia Current Visit: Yes Status: Acute Code(s): E87.6 - HYPOKALEMIA SNOMED Code( s): 61704494 (7) Carotid stenosis, bilateral Current Visit: Yes Status: Acute Code(s): I65.23 - OCCLUSION AND STENOSIS OF BILATERAL CAROTID ARTERIES SNOMED Code(s): 57855355 Plan: This patient has experienced a syncopal episode with a period of decreased responsiveness. Doubt any seizure activity. She has no history of this. We will get an EEG. Recommend discontinuation of phentermine. Recommend treating her possible underlying infection. Continue cardiology evaluation for her chest pain, tachycardia and low blood pressure. Continue monitoring and treatment for her metabolic abnormalities. Consultation placed for the finding of carotid stenosis. I have ordered a lipid panel. Barring any unforeseen abnormalities on her EEG should be cleared from a neurological standpoint. We can be called as needed for any change in her neurological status. I have performed a history and physical on the above patient. I have reviewed the above note, and agree.
[2018-02-16 16:27] LABS: Cholesterol 114 mg/dL (<200); HDL Cholesterol 30 mg/dL (40-60); LDL Cholesterol,Calculated 67 mg/dL (0-99); Triglycerides 84 mg/dL (<150)
[2018-02-16] MEDS: cefTRIAXone IN SWFI 1,000 MG/10 ML SYRINGE IVP SCH (16:46)
[2018-02-16] MEDS: LORATADINE 10 MG TAB PO PRN (19:22)
[2018-02-17 06:59] LABS: Basophils % (A) 0 %; Eosinophils # (A) 0.4 k/uL (0-0.7); Eosinophils % (A) 3 %; HCT 35.3 % (34.0-46.0); Lymphocytes # (A) 3.2 k/uL (1.0-4.8); Lymphocytes % (A) 24 %; MCHC 31.1 g/dL (31.0-37.0); MCV 83.8 fL (80.0-100.0); Mean Platelet Volume 9.8; Monocytes # (A) 0.6 k/uL (0-1.0); Monocytes % (A) 5 %; Neutrophils # (A) 8.9 k/uL (1.3-7.7); Neutrophils % (A) 67 %; Platelet Count 231 k/uL (150-450); RBC 4.21 m/uL (3.80-5.40); RDW 14.7 % (11.5-15.5); WBC 13.4 k/uL (3.8-10.6)
[2018-02-17 07:17] LABS: ALT 17 U/L (9-52); AST 11 U/L (14-36); Albumin 3.4 g/dL (3.5-5.0); Alkaline Phosphatase 66 U/L (38-126); Anion Gap 11 mmol/L; Blood Urea Nitrogen 11 mg/dL (7-17); Calcium 8.9 mg/dL (8.4-10.2); Carbon Dioxide 22 mmol/L (22-30); Chloride 109 mmol/L (98-107); Glucose 91 mg/dL (74-99); Potassium 4.2 mmol/L (3.5-5.1); Sodium 142 mmol/L (137-145); Total Bilirubin 0.2 mg/dL (0.2-1.3); Total Protein 6.5 g/dL (6.3-8.2)
--- NOTE | 2018-02-17 08:28 | ECHOF ---
Referral Reason:SYNCOPE MEASUREMENTS -------- HEIGHT: 170.2 cm WEIGHT: 153.3 kg BP: IVSd: 1.3 cm (0.6 - 1.1) LVIDd: 4.4 cm (3.9 - 5.3) LVPWd: 1.4 cm (0.6 - 1.1) EDV(Teich): 87 ml IVSs: 1.8 cm LVIDs: 2.7 cm LVPWs: 1.4 cm %IVS Thck: 38 % ESV(Teich): 28 ml EF(Teich): 68 % %FS: 38 % SV(Teich): 59 ml LA Diam: 3.9 cm (2.7 - 3.8) LALs A4C: 5.4 cm LAAs A4C: 17.8 cm LAESV A-L A4C: 50 ml LAESV MOD A4C: 46 ml LALs A2C: 5.4 cm LAAs A2C: 19.5 cm LAESV A-L A2C: 60 ml LAESV MOD A2C: 57 ml LAESV(A-L): 55 ml LAESV Index (A-L): 21.74 ml/m Ao Diam: 3.2 cm (2.0 - 3.7) LA Diam: 4.1 cm (2.7 - 3.8) AV Cusp: 2.2 cm (1.5 - 2.6) EPSS: 0.3 cm MV E Adi: 1.24 m/s MV DecT: 234 ms MV Dec Eddy: 5.3 m/s MV A Adi: 0.80 m/s MV E/A Ratio: 1.55 MV PHT: 68 ms AV Vmax: 1.37 m/s AV maxP.48 mmHg TR Vmax: 1.58 m/s TR maxP.99 mmHg RAP: 5.00 mmHg RVSP: 14.99 mmHg MV EF SLOPE: 85.35 mm/s (70 - 150) MV EXCURSION: 18.81 mm (> 18.000) FINDINGS -------- Sinus rhythm. This was a technically good study. The left ventricular size is normal. There is mild concentric left ventricular hypertrophy. Overa ll left ventricular systolic function is normal with, an EF between 55 - 60 %. The right ventricle is normal in size. The left atrial size is normal. Normal LA size by volume 22+/-6 ml/m2. The right atrial size is normal. The aortic valve is trileaflet, and appears structurally normal. No aortic stenosis or regurgitation. Mild mitral annular calcification present. Mild mitral regurgitation is present. Mild tricuspid regurgitation present. There is no evidence of pulmonary hypertension. The right v entricular systolic pressure, as measured by Doppler, is 14.99mmHg. There is no pulmonic regurgitation present. The aortic root size is normal. There is no pericardial effusion. CONCLUSIONS -------- 1. The left ventricular size is normal. 2. There is mild concentric left ventricular hypertrophy. 3. Overall left ventricular systolic function is normal with, an EF between 55 - 60 %. 4. Normal LA size by volume 22+/-6 ml/m2. 5. The aortic valve is trileaflet, and appears structurally normal. No aortic stenosis or regurgitati on. 6. Mild mitral annular calcification present. 7. Mild mitral regurgitation is present. 8. Mild tricuspid regurgitation present. 9. There is no evidence of pulmonary hypertension. 10. The right ventricular systolic pressure, as measured by Doppler, is 14.99mmHg. 11. There is no pulmonic regurgitation present. 12. The aortic root size is normal. 13. There is no pericardial effusion. CONSULTING SALES EXECUTIVE: Ebony Stapleton RDCS
[2018-02-17] MEDS: ENOXAPARIN 40 MG/0.4 ML SYRINGE SQ SCH (09:07)
[2018-02-17] MEDS: PANTOPRAZOLE 40 MG TABLET PO SCH (09:07)
--- NOTE | 2018-02-17 12:20 | P.PN ---
Subjective Progress Note Date: 02/17/18 Sonam Gr is a 33-year-old female who presented to [facility] emergency Department after she was found unresponsive. EMS received a call from for unresponsiveness when they arrived the patient was unresponsive however with painful stimuli the patient became arousable but was unable to tell them what happened. She did state us that she felt weird so she called a friend and that is when her friend found her unresponsive. Patient denies any drug use. Toxicology screen was negative except for amphetamine patient is on a weight loss medication that contains amphetamine. Patient states she's having some chest pain and a mild headache. She stated that she took a Diflucan pill for a yeast infection on the day of admission, otherwise she denies doing anything unusual she was still not fully alert at the time of evaluation in the emergency room. On 02/17/2018 alert and oriented 3 in no apparent distress she is sitting comfortably in bed she denies any dizziness no fever or chills no headache no chest pain or shortness of breath no cough no palpitation no nausea or vomiting no abdominal pain and no urinary symptoms Objective - Vital Signs Vital signs: Vital Signs Temp 98.1 F 02/17/18 11:56 Pulse 88 02/17/18 11:56 Resp 18 02/17/18 11:56 BP 115/77 02/17/18 11:56 Pulse Ox 95 02/17/18 11:56 Intake & Output 02/16/18 02/17/18 02/17/18 18:59 06:59 18:59 Intake Total 840 960 120 Balance 840 960 120 Weight 153.3 kg Intake: Oral 840 960 120 Other: Voiding Method Toilet Toilet Toilet # Voids 1 2 - Exam HEENT head normocephalic and atraumatic Neck is supple no JVD no goiter no lymphadenopathy Chest exam reveals a few scattered crackles no wheezing Cardiac exam reveals regular heart sounds S1 and S2 no gallops no murmurs Abdomen is soft nontender no organomegaly with normal bowel sounds Extremity exam reveals no edema no cyanosis or clubbing Neurological examination reveals no gross deficit - Labs CBC & Chem 7: 02/17/18 06:41 02/17/18 06:41 Labs: Abnormal Lab Results - Last 24 Hours (Table) 02/16/18 02/17/18 02/17/18 Range/Units 06:22 06:41 06:41 WBC 13.4 H (3.8-10.6) k/uL Hgb 11.0 L (11.4-16.0) gm/dL Neutrophils # 8.9 H (1.3-7.7) k/uL Chloride 109 H (98-107) mmol/L AST 11 L (14-36) U/L Albumin 3.4 L (3.5-5.0) g/dL HDL Cholesterol 30 L (40-60) mg/dL Microbiology - Last 24 Hours (Table) 02/15/18 10:31 Urine Culture - Final Urine,Catheterized Assessment and Plan Plan: #1 episode of unresponsiveness #2 hypotension with tachycardia on presentation #3 headache on presentation #4 chest pain on presentation #5 evidence of bronchitis on chest x-ray with mild leukocytosis #6 obesity with use of phentermine Adipex for weight loss Patient was started on IV Rocephin for bronchitis with leukocytosis, continue IV Rocephin at this time patient still has leukocytosis with white blood count of 13.4 Cardiology and neurology consultation were requested Carotid Doppler reveals bilateral stenosis of 50-70%, Will consult Dr. Cerda for evaluation Continue current management otherwise will follow in a.m.
--- NOTE | 2018-02-17 13:01 | CONS ---
CONSULTATION This is a 33-year-old female. She came to the emergency room with an episode of unresponsiveness, hypertension, history of headache and some chest discomfort and patient has had a workup including CT of the brain which was negative for intracranial bleed. Patient had a carotid ultrasound with 50-70% stenosis bilateral. The patient also has a history of bronchitis and patient is on IV antibiotic. No history of TIA and stroke. No history of seizure disorder. No history of diabetes, hypertension. EXAMINATION: Patient was seen in her room. Her vital signs stable. NECK: Supple. Trachea central. CHEST: Clear to auscultation. ABDOMEN: Soft. Femoral pulses are present. CENTRAL NERVOUS SYSTEM: Oriented to time and place and motor function normal bilateral. Ultrasound of carotids showed 50% percent stenosis. At this point patient has incidental finding of both carotids. The patient is stable and the patient is having cardiac workup. At this point patient does not need any vascular intervention. We will follow in my office. MMODL / IJN: [id number] /
--- NOTE | 2018-02-17 13:07 | PN ---
PROGRESS NOTE A 33-year-old lady that is admitted to hospital with syncope, has carotid stenosis being evaluated by a vascular surgeon. An echocardiogram showed normal LV function. She has not had any further episodes of syncope and does not have tachy or isabel arrhythmias. EXAM: She is comfortable at rest. Vital signs are stable. There is no jugular venous distention. Chest exam reveals good air entry bilaterally. Heart exam reveals first and second heart sounds. No gallop. Abdomen is soft. Exam of extremities did not reveal any edema. Peripheral pulses are palpable. ASSESSMENT: 1. Syncope. 2. Carotid stenosis. PLAN: No further cardiac workup is needed. I will arrange an outpatient stress test and if necessary outpatient event monitor. She has dyslipidemia, primarily in the form of low HDL level. I encouraged her to exercise, lose weight, and at the end of that if she still has dyslipidemia, we should consider starting her on Tricor. MMODL / IJN: [id number] /
--- NOTE | 2018-02-17 13:48 | P.GSCN ---
<Ken Davalos - Last Filed: 02/17/18 13:13> History of Present Illness Consult date: 02/17/18 Reason for Consult: Bilateral carotid stenosis, syncopal event. Requesting physician: Servando Rodarte History of present illness: This is a 33-year-old female patient who follows with Dr. Marie Washington on an outpatient basis. The patient has past medical history significant for iron deficiency anemia, vitamin D deficiency, current tobacco dependency, morbid obesity on Adipex-P, migraine headaches, history of right ear infection 3-4 months ago, multiple kidney stones, Trichomonas exposure and yeast infection. The patient presented to the emergency department here at [facility] via EMS after she was found unresponsive. She reports that she took a Diflucan tablet for a diagnosed yeast infection and 5 minutes after taking the Diflucan she reports she became dizzy, migraine headache, complaints of chest pain that radiated to her back, diaphoretic, and numbness to her upper and lower extremities. She denies any complaints of nausea, fever, chills, losing bowel or bladder function. She subsequently phoned a friend to report how she was feeling, who called EMS. When EMS arrived to her house they found the patient unresponsive although she did respond to painful stimuli. A urine drug screen was completed in the emergency department which was negative except for amphetamines, although the patient does take her Adipex-P for weight loss at home. The patient also reports that she underwent a recent 12-lead EKG at her primary care's office which was normal according to the patient prior to starting the Adipex-P. A 12-lead EKG was completed which showed sinus tachycardia heart rate [address] of the brain was completed which was negative for any acute intracranial process. Subsequently the patient did have a carotid duplex study completed which did demonstrate multiple segments of elevated velocity suggestive of a 50-70% stenosis to both her left and right internal carotid arteries. Her initial laboratory studies showed a WBC count of 13.9, potassium level of 3.1, venous CO2 level of 19, BUN 14, creatinine 0.77 , glucose 151, troponin <0.012 and a hemoglobin A1c of 5.4. Due to the patient' s presenting symptoms and carotid duplex study results a consult was placed for Dr. Benigno Cheema from vascular surgery. Review of Systems A 14 point review systems was completed and was negative except as mentioned in HPI. Past Medical History Past Medical History: Renal Disease (Multiple kidney stones) Additional Past Medical History / Comment(s): Migraines, sinus problems, peptic ulcer, history of upper GI bleed, currently took Flagyl for trichamonas exposure then Diflucan for a yeast infection, morbid obesity currently on Adipex -P (past 2-3 months for wt loss). History of Any Multi-Drug Resistant Organisms: None Reported, MRSA Year Discovered:: 2016 MDRO Source:: GROIN Past Surgical History: Section, Cholecystectomy Additional Past Surgical History / Comment(s): Lithotripsy for kidney stone removal Past Anesthesia/Blood Transfusion Reactions: No Reported Reaction Past Psychological History: No Psychological Hx Reported Smoking Status: Current every day smoker Past Alcohol Use History: Rare Past Drug Use History: None Reported - Past Family History Father Family Medical History: Coronary Artery Disease (CAD), Myocardial Infarction (ID ) Additional Family Medical History / Comment(s): Father had a ID at the age of 60yrs. Mother Family Medical History: Diabetes Mellitus, Hypertension, Osteoarthritis (OA) Medications and Allergies Home Medications Medication Instructions Recorded Confirmed Type Ergocalciferol (Vitamin D2) 50,000 unit PO Q7D 02/15/18 02/15/18 History [Vitamin D2] Phentermine HCl [Adipex-P] 37.5 mg PO QAM 02/15/18 02/15/18 History Levofloxacin [Levaquin] 500 mg PO DAILY #7 tab 02/18/18 Rx Allergies Allergy/AdvReac Type Severity Reaction Status Date / Time hydrochlorothiazide Allergy Rash/Hives Verified 02/15/18 10:11 Surgical - Exam Vital Signs Temp Pulse Resp BP Pulse Ox 95.9 F L 127 H 20 85/49 87 L 02/15/18 09:22 02/15/18 09:22 02/15/18 09:22 02/15/18 09:22 02/15/18 09:22 - General well developed, well nourished, no distress, no pain, obese (Morbidly obese) - Eyes PERRL, normal ocular movement - ENT Normocephalic and atraumatic. normal pinna, normal nares, normal mucosa, no hearing loss, no congestion - Neck Neck is supple, no lymphadenopathy, no thyromegaly. no masses, no bruits, trachea midline, no venous distension - Respiratory Lung sounds are essentially clear throughout, no wheezing or rhonchi. Respirations are symmetrical and nonlabored. Oxygen saturation are 95% on room air. - Cardiovascular Regular rhythm and rate. S1 and S2 present, negative for S3, gallop or murmur. No edema present. Remote telemetry showing normal sinus rhythm heart rate 86. - Abdomen Abdomen is soft, nontender and nondistended. Obese. No organomegaly, no guarding or rigidity. Active bowel sounds all 4 abdominal quadrants. - Genitourinary Adequate urine output. - Integumentary Multiple tattoos. no rash, no growths, no abnormal pigmentation - Neurologic No gross focal deficits. normal coordination, normal sensation - Musculoskeletal normal gait, normal posture - Psychiatric oriented to time, oriented to person, oriented to place, speech is normal, memory intact Results - Labs 02/17/18 06:41 02/17/18 06:41 Abnormal Lab Results - Last 24 Hours (Table) 02/16/18 02/17/18 02/17/18 Range/Units 06:22 06:41 06:41 WBC 13.4 H (3.8-10.6) k/uL Hgb 11.0 L (11.4-16.0) gm/dL Neutrophils # 8.9 H (1.3-7.7) k/uL Chloride 109 H (98-107) mmol/L AST 11 L (14-36) U/L Albumin 3.4 L (3.5-5.0) g/dL HDL Cholesterol 30 L (40-60) mg/dL Microbiology - Last 24 Hours (Table) 02/15/18 10:31 Urine Culture - Final Urine,Catheterized Diabetes panel 02/16/18 02/17/18 Range/Units 06:22 06:41 Sodium 142 (137-145) mmol/L Potassium 4.2 (3.5-5.1) mmol/L Chloride 109 H (98-107) mmol/L Carbon Dioxide 22 (22-30) mmol/L BUN 11 (7-17) mg/dL Creatinine 0.62 (0.52-1.04) mg/dL Glucose 91 (74-99) mg/dL Calcium 8.9 (8.4-10.2) mg/dL AST 11 L (14-36) U/L ALT 17 (9-52) U/L Alkaline Phosphatase 66 (38-126) U/L Total Protein 6.5 (6.3-8.2) g/dL Albumin 3.4 L (3.5-5.0) g/dL Triglycerides 84 (<150) mg/dL HDL Cholesterol 30 L (40-60) mg/dL Calcium panel 02/17/18 Range/Units 06:41 Calcium 8.9 (8.4-10.2) mg/dL Albumin 3.4 L (3.5-5.0) g/dL Pituitary panel 02/17/18 Range/Units 06:41 Sodium 142 (137-145) mmol/L Potassium 4.2 (3.5-5.1) mmol/L Chloride 109 H (98-107) mmol/L Carbon Dioxide 22 (22-30) mmol/L BUN 11 (7-17) mg/dL Creatinine 0.62 (0.52-1.04) mg/dL Glucose 91 (74-99) mg/dL Calcium 8.9 (8.4-10.2) mg/dL Adrenal panel 02/17/18 Range/Units 06:41 Sodium 142 (137-145) mmol/L Potassium 4.2 (3.5-5.1) mmol/L Chloride 109 H (98-107) mmol/L Carbon Dioxide 22 (22-30) mmol/L BUN 11 (7-17) mg/dL Creatinine 0.62 (0.52-1.04) mg/dL Glucose 91 (74-99) mg/dL Calcium 8.9 (8.4-10.2) mg/dL Total Bilirubin 0.2 (0.2-1.3) mg/dL AST 11 L (14-36) U/L ALT 17 (9-52) U/L Alkaline Phosphatase 66 (38-126) U/L Total Protein 6.5 (6.3-8.2) g/dL Albumin 3.4 L (3.5-5.0) g/dL - Imaging Comments: Computed tomography scan of the brain results reviewed. Carotid duplex study results reviewed and discussed with Dr. Cheema. Chest x-ray: report reviewed, image reviewed EKG: report reviewed, image reviewed Assessment and Plan (1) Episode of unresponsiveness Status: Acute Code(s): R41.89 - OTH SYMPTOMS AND SIGNS W COGNITIVE FUNCTIONS AND AWARENESS SNOMED Code(s): 356549643 (2) Headache Status: Acute Code(s): R51 - HEADACHE SNOMED Code(s): 26185609 (3) Chest pain Status: Acute Code(s): R07.9 - CHEST PAIN, UNSPECIFIED SNOMED Code(s): 23012601 (4) Morbidly obese Status: Acute Code(s): E66.01 - MORBID (SEVERE) OBESITY DUE TO EXCESS CALORIES SNOMED Code(s): 176359654 (5) Carotid stenosis, bilateral Status: Acute Code(s): I65.23 - OCCLUSION AND STENOSIS OF BILATERAL CAROTID ARTERIES SNOMED Code(s): 35526831 (6) Hypokalemia Status: Acute Code(s): E87.6 - HYPOKALEMIA SNOMED Code(s): 89170765 (7) Leukocytosis Status: Acute Code(s): D72.829 - ELEVATED WHITE BLOOD CELL COUNT, UNSPECIFIED SNOMED Code(s): 356424641 (8) Syncope and collapse Status: Acute Code(s): R55 - SYNCOPE AND COLLAPSE SNOMED Code(s): 378558321 (9) Tachycardia Status: Acute Code(s): R00.0 - TACHYCARDIA, UNSPECIFIED SNOMED Code(s): 1852286 Plan: The patient was seen and examined. Her chart and diagnostics were reviewed. Her case was discussed with Dr. Benigno Cheema. Her carotid Doppler studies were noted and reveals a bilateral internal carotid artery of stenosis of 50-70% . Recommendations are to follow the patient has an outpatient basis, she did not have any focal deficits and it is felt that her syncopal event is not related to her carotid disease. We will follow her on an outpatient basis, she will need an appointment with Dr. Cheema in 1 week post discharge. Thank you for this consult and we look forward to working with you in the care of your patient. Time with Patient: Greater than 30 <Benigno Cheema - Last Filed: 02/19/18 09:53> History of Present Illness History of present illness: Nurse practitioner notes reviewed and accepted. In view of the lack of focal symptoms and the lack of critical lesions of the carotids, it is unlikely that the symptoms that brought the patient into the hospital are carotid in origin. I would recommend ongoing surveillance. I do not feel that CT angiogram would enhance our assessment. Surgical - Exam Osteopathic Statement: *. No significant issues noted on an osteopathic structural exam other than those noted in the History and Physical/Consult. Vital Signs Temp Pulse Resp BP Pulse Ox 95.9 F L 127 H 20 85/49 87 L 02/15/18 09:22 02/15/18 09:22 02/15/18 09:22 02/15/18 09:22 02/15/18 09:22 Results - Labs 02/18/18 06:24 02/18/18 06:24
[2018-02-17] MEDS: cefTRIAXone IN SWFI 1,000 MG/10 ML SYRINGE IVP SCH (15:55)
[2018-02-17] MEDS: ACETAMINOPHEN TAB 325 MG TAB PO PRN ×2 (15:55→23:38)
[2018-02-17] MEDS: LORATADINE 10 MG TAB PO PRN (23:38)
[2018-02-18] MEDS: PANTOPRAZOLE 40 MG TABLET PO SCH (06:37)
[2018-02-18 06:43] LABS: Basophils % (A) 0 %; Eosinophils # (A) 0.4 k/uL (0-0.7); Eosinophils % (A) 3 %; HCT 38.2 % (34.0-46.0); HGB 12.6 gm/dL (11.4-16.0); Lymphocytes # (A) 3.2 k/uL (1.0-4.8); Lymphocytes % (A) 23 %; MCH 27.3 pg (25.0-35.0); MCHC 33.1 g/dL (31.0-37.0); MCV 82.6 fL (80.0-100.0); Mean Platelet Volume 8.7; Monocytes # (A) 0.5 k/uL (0-1.0); Monocytes % (A) 4 %; Neutrophils # (A) 9.9 k/uL (1.3-7.7); Neutrophils % (A) 70 %; Platelet Count 259 k/uL (150-450); RBC 4.62 m/uL (3.80-5.40); RDW 14.4 % (11.5-15.5); WBC 14.1 k/uL (3.8-10.6)
[2018-02-18 06:54] LABS: ALT 20 U/L (9-52); AST 23 U/L (14-36); Albumin 3.8 g/dL (3.5-5.0); Alkaline Phosphatase 73 U/L (38-126); Anion Gap 12 mmol/L; Blood Urea Nitrogen 14 mg/dL (7-17); Calcium 9.3 mg/dL (8.4-10.2); Carbon Dioxide 23 mmol/L (22-30); Chloride 108 mmol/L (98-107); Glucose 90 mg/dL (74-99); Potassium 4.4 mmol/L (3.5-5.1); Sodium 143 mmol/L (137-145); Total Bilirubin 0.4 mg/dL (0.2-1.3); Total Protein 7.2 g/dL (6.3-8.2)
[2018-02-18] MEDS: ENOXAPARIN 40 MG/0.4 ML SYRINGE SQ SCH (07:40)
[2018-02-18 08:00] VITALS: RESP 16
[2018-02-18 11:43] VITALS: BP 133/69; PULSE 91; TEMP 97.8
--- NOTE | 2018-02-18 13:13 | P.DS ---
Providers Date of admission: 02/16/18 08:28 Expected date of discharge: 02/18/18 Attending physician: Albin Peck Consults: 02/15/18 11:14 Consult Physician Urgent Consulting Provider: Devin George Consult Reason/Comments: Altered mental status Do you want consulting provider notified?: Yes 02/16/18 12:05 Consult Physician Routine Consulting Provider: Manuel Barker Consult Reason/Comments: tachycardia, syncope Do you want consulting provider notified?: Yes Consult Physician Urgent Consulting Provider: Benigno Cheema Consult Reason/Comments: bilateral carotid stenosis in 33y/o(syncope) Do you want consulting provider notified?: Yes 02/16/18 14:38 Consult Physician Routine Consulting Provider: Julian Cerda Consult Reason/Comments: carotid stenosis Do you want consulting provider notified?: Yes Primary care physician: Marie Washington [facility] Course: Discharge diagnosis #1 syncope: episode of unresponsiveness exact etiology unclear. Seen by cardiology. No evidence of tachycardia or bradycardia arrhythmias. Echo shows a normal LV function. Cardiology has cleared patient for discharge and recommending stress test as outpatient . Patient seen by neurology #2 hypotension with tachycardia on presentation. Now resolved #3 headache on presentation. Now resolved #4 chest pain on presentation. Now resolved. Troponins negative. Patient seen by cardiology. Stress test outpatient #5 evidence of bronchitis on chest x-ray with leukocytosis. Patient will be placed on Levaquin for 7 more days #6 obesity with use of phentermine Adipex for weight loss #7 bilateral internal carotid artery stenosis of 50-70%. Was seen by Dr. Cheema. This did not contribute to patient's syncope. Further follow-up with Dr. Cheema in 1 week Hospital course Sonam Gr is a 33-year-old female who presented to [facility] emergency Department after she was found unresponsive. EMS received a call from for unresponsiveness when they arrived the patient was unresponsive however with painful stimuli the patient became arousable but was unable to tell them what happened. She did state us that she felt weird so she called a friend and that is when her friend found her unresponsive. Patient denies any drug use. Toxicology screen was negative except for amphetamine patient is on a weight loss medication that contains amphetamine. Patient states she's having some chest pain and a mild headache. She stated that she took a Diflucan pill for a yeast infection on the day of admission, otherwise she denies doing anything unusual she was still not fully alert at the time of evaluation in the emergency room The exact cause of her syncopal episode is unclear. But she has been seen by neurology and cardiology. Computed tomography scan of the brain showed no acute abnormality. She did have a carotid Doppler that showed 50-70% stenosis in the bilateral internal carotid arteries. She was seen by vascular surgery. This stenosis did not contribute to her syncopal episode. She'll follow-up with vascular surgery in the outpatient setting. She did have evidence of a bronchitis on chest x-ray and will be given 7 more days of antibiotic. Her white count remains elevated at 14.1 at discharge. Patient also seen evaluated by cardiology echo which was normal with an EF of 55-60%. The recommending a stress test outpatient. Also recommended the patient continues weight loss and exercise. Her LDL was low at 30. Patient is medically stable for discharge. She's been cleared by consulting physicians for discharge. I performed an examination of the patient and discussed their management with the physician Chief School Finance Officer. I have reviewed the Physician Chief School Finance Officer's notes and agree with the documented findings and plan of care Patient Condition at Discharge: Stable Plan - Discharge Summary Discharge Rx Participant: No New Discharge Prescriptions: New Levofloxacin [Levaquin] 500 mg PO DAILY #7 tab Continue Phentermine HCl [Adipex-P] 37.5 mg PO QAM Ergocalciferol (Vitamin D2) [Vitamin D2] 50,000 unit PO Q7D Discontinued metroNIDAZOLE [Flagyl] 2,000 mg PO ONCE Discharge Medication List Ergocalciferol (Vitamin D2) [Vitamin D2] 50,000 unit PO Q7D 02/15/18 [History] Phentermine HCl [Adipex-P] 37.5 mg PO QAM 02/15/18 [History] Levofloxacin [Levaquin] 500 mg PO DAILY #7 tab 02/18/18 [Rx] Follow up Appointment(s)/Referral(s): Marie Washington MD [Primary Care Provider] - 1 Week (Spoke to airline lounge receptionist. Office will call with appointment time.) Benigno Cheema DO [Doctor of Osteopathic Medicine] - 02/28/18 9:45 am ( ) Manuel Barker MD [STAFF PHYSICIAN] - 1 Week Patient Instructions/Handouts: Heart Healthy Diet (DC), Carotid Artery Disease (DC), Altered Mental Status (GEN) Activity/Diet/Wound Care/Special Instructions: Diet: regular Activity: as tolerated Discharge Disposition: HOME SELF-CARE
--- NOTE | 2018-02-18 15:11 | P.PN ---
Subjective Progress Note Date: 02/18/18 Principal diagnosis: Syncope This is a 33-year-old female admitted to the hospital with syncope.. States she had mental status changes, was confused, and subsequently, she may have passed out. She was seen in consultation yesterday by Dr. Barker. Echocardiogram with Doppler study was performed which revealed an ejection fraction of 55-60%. Carotid Doppler study was performed with subsequent consultation with surgery, who did not feel that the patient required any vascular intervention at this time. Blood pressure 132/70 with a heart rate in the 90s. White blood cell count 14.1, hemoglobin 12.6. Sodium 143, potassium 4.4, BUN 14, creatinine 0.6. Objective - Vital Signs Vital signs: Vital Signs Temp 97.8 F 02/18/18 11:43 Pulse 91 02/18/18 11:43 Resp 16 02/18/18 11:43 BP 133/69 02/18/18 11:43 Pulse Ox 97 02/18/18 11:43 Intake & Output 02/17/18 02/18/18 02/18/18 18:59 06:59 18:59 Intake Total 840 690 Balance 840 690 Weight 153.5 kg Intake: IV 10 Invasive Line 2 10 Oral 840 680 Other: Voiding Method Toilet Toilet # Voids 1 1 - Exam PHYSICAL EXAMINATION: HEENT: [Head is atraumatic, normocephalic. Pupils equal, round. Neck is supple. There is no elevated jugular venous pressure.] HEART EXAMINATION: [Heart S1, S2 normal. No murmur or gallop heard.] CHEST EXAMINATION:[ Lungs are clear to auscultation and precussion. No chest wall tenderness is noted on palpation or with deep breathing.] ABDOMEN: [ Soft, nontender. Bowel sounds are heard. No organomegaly noted]. EXTREMITIES:[ 2+ peripheral pulses with no evidence of peripheral edema and no calf tenderness noted]. NEUROLOGIC [patient is awake, alert and oriented -3.] . - Labs CBC & Chem 7: 02/18/18 06:24 02/18/18 06:24 Labs: Abnormal Lab Results - Last 24 Hours (Table) 02/18/18 02/18/18 Range/Units 06:24 06:24 WBC 14.1 H (3.8-10.6) k/uL Neutrophils # 9.9 H (1.3-7.7) k/uL Chloride 108 H (98-107) mmol/L Assessment and Plan Plan: Assessment and plan #1 syncope, so far workup from cardiac perspective is negative. Echo reveals normal left ventricular systolic function. There were no documented tachycardia or bradycardia arrhythmias, no significant orthostatics. Plan From cardiology's perspective, patient may be able to be discharged home once cleared by the primary. We'll make a follow-up appointment in the office, at which time outpatient stress testing will be performed as well as 30 day event monitor. Follow-up appointment with Dr. Barker. DNP note has been reviewed, I agree with a documented findings and plan of care. Patient was seen and examined.
--- NOTE | 2018-02-25 10:13 | EEG ---
ELECTROENCEPHALOGRAM REPORT DATE OF SERVICE: 02/16/2018 REASON FOR TESTING: Altered mental status. DESCRIPTION OF THE PROCEDURE: This EEG was performed using a 21 channel digital electroencephalograph, following international 10-20 system. DESCRIPTION OF THE RECORDING: From the beginning of the tracing, and with patient's eyes closed, the background rhythm was mostly consisting of 9 to 10 Hz alpha frequency in the posterior occipital leads. No obvious asymmetry is seen. Hyperventilation was performed with a minimal buildup of amplitude seen. No pathological waves were elicited. Photic stimulation was performed with a good driving response seen. Again, no pathological waves were elicited. Rare movement artifacts are seen. The patient remains awake throughout the tracing. No epileptiform discharges were seen. Her EKG lead showed a regular rate and rhythm. INTERPRETATION: This awake EEG can be considered within normal limits. There was no asymmetry seen. No epileptiform discharges were noticed. The absence of epileptiform discharges does not rule out the diagnosis of epilepsy, therefore clinical correlation is recommended. MMCANDIDA / MADHURI: [id number] /
== END 2018-02-18 13:59 | disposition home or self-care (01) ==
LOC: EC 09:21 → 6SEL 11:14 → INTOOBSV 02-16 08:28 → OBSVTOIN 02-16 08:28 → UNDODISIN 02-18 13:59
PROVIDERS: ADMIT Internal Medicine; ATTEND Internal Medicine
DX: R55 Syncope and collapse (principal); I95.9 Hypotension, unspecified; J40 Bronchitis, not specified as acute or chronic; R07.9 Chest pain, unspecified; R00.0 Tachycardia, unspecified; E87.6 Hypokalemia; E66.01 Morbid (severe) obesity due to excess calories; Z68.43 Body mass index [BMI] 50.0-59.9, adult; I65.23 Occlusion and stenosis of bilateral carotid arteries; D50.9 Iron deficiency anemia, unspecified; E55.9 Vitamin D deficiency, unspecified; F17.200 Nicotine dependence, unspecified, uncomplicated; R61 Generalized hyperhidrosis; E78.5 Hyperlipidemia, unspecified; G43.909 Migraine, unspecified, not intractable, without status migrainosus; I10 Essential (primary) hypertension; R41.82 Altered mental status, unspecified; B37.9 Candidiasis, unspecified; Z20.2 Contact with and (suspected) exposure to infections with a predominantly sexual mode of transmission; Z90.49 Acquired absence of other specified parts of digestive tract; Z79.899 Other long term (current) drug therapy; Z88.8 Allergy status to other drugs, medicaments and biological substances; Z87.11 Personal history of peptic ulcer disease; Z87.442 Personal history of urinary calculi; Z86.14 Personal history of Methicillin resistant Staphylococcus aureus infection; Z82.61 Family history of arthritis; Z82.49 Family history of ischemic heart disease and other diseases of the circulatory system; Z83.3 Family history of diabetes mellitus
CPT/HCPCS: 96376 ×2; 96361 ×3; 96372 ×3; 96375; 96374; 99285; 51702; 36415; 95816; 93005; 93306; 85379; 80053 ×3; 80048; 80061; 84443; 82140; 82550; 82553; 84484; 85025 ×3; 85610; 85730; 81001; 80306; 83520 ×2; 87086; 83036; 71046; 93880; 70450; G0378 ×5; J2310; J1650 ×3; J0696 ×3

== ENCOUNTER 2018-03-01 06:15 | Emergency (ER) | payer OTHER ==
[2018-03-01 06:22] VITALS: TEMP 97.6
[2018-03-01] MEDS ORDERED: SODIUM CHLORIDE 0.9% 500 ML IV STA (07:07)
--- NOTE | 2018-03-01 07:12 | ED ---
General Adult HPI - General Chief complaint: Chest Pain Stated complaint: Palpitations Time Seen by Provider: 03/01/18 06:56 Source: patient, RN notes reviewed, old records reviewed Mode of arrival: ambulatory Limitations: no limitations - History of Present Illness Initial comments: 33-year-old female presenting for evaluation of palpitations and lightheadedness. Patient states she was driving into work approximately 30 minutes prior to arrival, felt very lightheaded, became short of breath, and developed palpitations. She also had some dull chest pain associated with this. Patient states prior to this episode she was feeling well. No cough or cold symptoms. No nausea or vomiting. She has been eating normally. No fever or chills. She states she was admitted to this hospital with an episode of confusion and possible seizure. Patient is not currently on control, no recent travel. She does report some bilateral upper and lower extremity swelling. - Related Data Home Medications Medication Instructions Recorded Confirmed Aspirin EC [Ecotrin Low Dose] 81 mg PO DAILY 03/01/18 03/01/18 Allergies Allergy/AdvReac Type Severity Reaction Status Date / Time hydrochlorothiazide Allergy Rash/Hives Verified 03/01/18 07:33 Review of Systems ROS Statement: Those systems with pertinent positive or pertinent negative responses have been documented in the HPI. ROS Other: All systems not noted in ROS Statement are negative. Past Medical History Past Medical History: Renal Disease Additional Past Medical History / Comment(s): Migraines, sinus problems, peptic ulcer, history of upper GI bleed, currently took Flagyl for trichamonas exposure then Diflucan for a yeast infection, morbid obesity currently on Adipex -P (past 2-3 months for wt loss). History of Any Multi-Drug Resistant Organisms: None Reported, MRSA Date of last positivie culture/infection: 2015 MDRO Source:: GROIN Past Surgical History: Section, Cholecystectomy Additional Past Surgical History / Comment(s): Lithotripsy for kidney stone removal Past Anesthesia/Blood Transfusion Reactions: No Reported Reaction Past Psychological History: No Psychological Hx Reported Smoking Status: Current every day smoker Past Alcohol Use History: Rare Past Drug Use History: None Reported - Past Family History Father Family Medical History: Coronary Artery Disease (CAD), Myocardial Infarction (AR ) Additional Family Medical History / Comment(s): Father had a AR at the age of 60yrs. Mother Family Medical History: Diabetes Mellitus, Hypertension, Osteoarthritis (OA) General Exam Limitations: no limitations General appearance: alert, anxious Head exam: Present: atraumatic, normocephalic Eye exam: Present: normal appearance, PERRL Neck exam: Present: normal inspection. Absent: tenderness, meningismus Respiratory exam: Present: normal lung sounds bilaterally. Absent: respiratory distress, wheezes, rales Cardiovascular Exam: Present: normal rhythm, tachycardia GI/Abdominal exam: Present: soft. Absent: distended, tenderness, guarding Extremities exam: Present: normal inspection, normal capillary refill. Absent: full ROM, tenderness, pedal edema, calf tenderness Back exam: Present: normal inspection. Absent: full ROM, tenderness Neurological exam: Present: alert, oriented X3, CN II-XII intact. Absent: motor sensory deficit Psychiatric exam: Present: normal affect, normal mood Skin exam: Present: warm, dry, intact. Absent: cyanosis, diaphoretic Course Vital Signs 03/01/18 03/01/18 03/01/18 06:18 07:01 08:32 Temperature 97.6 F Pulse Rate 97 104 H 86 Respiratory 18 22 18 Rate Blood Pressure 128/92 142/88 161/79 O2 Sat by Pulse 100 100 100 Oximetry EKG Findings - EKG Comments: EKG Findings:: EKG: Normal sinus rhythm, with sinus arrhythmia, ventricular rate 96, MO interval 152, QRS duration 84, QTC 449, no ST segment elevation or depression. Medical Decision Making - Medical Decision Making 33-year-old female presenting with palpitations and lightheadedness. EKG is normal sinus rhythm. Vital signs stable. Patient is well-appearing with nonfocal neurologic exam. Laboratory studies are obtained, patient does have some leukocytosis at 15 which is chronic, her primary care physician is aware of this. Hemoglobin 12 which is stable, d-dimer normal electrolytes within normal limits. Troponin and BNP are negative, chest x-ray negative for pneumothorax or focal pneumonia. Urinalysis is clean. Patient's vital signs remained stable. Palpitations resolved. Patient does have good outpatient follow-up she will return with worsening or changing symptoms. - Lab Data Result diagrams: 03/01/18 06:40 03/01/18 06:40 Lab Results 03/01/18 03/01/18 03/01/18 Range/Units 06:40 06:40 06:40 WBC 15.0 H (3.8-10.6) k/uL RBC 4.50 (3.80-5.40) m/uL Hgb 12.0 (11.4-16.0) gm/dL Hct 37.8 (34.0-46.0) % MCV 84.0 (80.0-100.0) fL MCH 26.8 (25.0-35.0) pg MCHC 31.9 (31.0-37.0) g/dL RDW 14.6 (11.5-15.5) % Plt Count 248 (150-450) k/uL Neutrophils % 68 % Lymphocytes % 24 % Monocytes % 4 % Eosinophils % 2 % Basophils % 0 % Neutrophils # 10.2 H (1.3-7.7) k/uL Lymphocytes # 3.6 (1.0-4.8) k/uL Monocytes # 0.6 (0-1.0) k/uL Eosinophils # 0.3 (0-0.7) k/uL Basophils # 0.1 (0-0.2) k/uL Hypochromasia Slight PT (9.0-12.0) sec INR (<1.2) APTT (22.0-30.0) sec D-Dimer (<0.60) mg/L FEU Sodium 143 (137-145) mmol/L Potassium 4.3 (3.5-5.1) mmol/L Chloride 110 H (98-107) mmol/L Carbon Dioxide 20 L (22-30) mmol/L Anion Gap 13 mmol/L BUN 19 H (7-17) mg/dL Creatinine 0.59 (0.52-1.04) mg/dL Est GFR (CKD-EPI)AfAm >90 (>60 ml/min/1.73 sqM) Est GFR (CKD-EPI)NonAf >90 (>60 ml/min/1.73 sqM) Glucose 97 (74-99) mg/dL Calcium 9.2 (8.4-10.2) mg/dL Magnesium 1.6 (1.6-2.3) mg/dL Total Bilirubin 0.2 (0.2-1.3) mg/dL AST 16 (14-36) U/L ALT 19 (9-52) U/L Alkaline Phosphatase 74 (38-126) U/L Total Creatine Kinase 35 (30-135) U/L CK-MB (CK-2) <0.2 (0.0-2.4) ng/mL CK-MB (CK-2) Rel Index Troponin I <0.012 (0.000-0.034) ng/mL NT-Pro-B Natriuret Pep pg/mL Total Protein 6.8 (6.3-8.2) g/dL Albumin 3.5 (3.5-5.0) g/dL Urine Color Urine Appearance (Clear) Urine pH (5.0-8.0) Ur Specific Arden (1.001-1.035) Urine Protein (Negative) Urine Glucose (UA) (Negative) Urine Ketones (Negative) Urine Blood (Negative) Urine Nitrite (Negative) Urine Bilirubin (Negative) Urine Urobilinogen (<2.0) mg/dL Ur Leukocyte Esterase (Negative) Urine RBC (0-5) /hpf Urine WBC (0-5) /hpf Ur Squamous Epith Cells (0-4) /hpf Urine Mucus (None) /hpf Urine HCG, Qual (Not Detectd) 03/01/18 03/01/18 03/01/18 Range/Units 06:40 06:40 07:18 WBC (3.8-10.6) k/uL RBC (3.80-5.40) m/uL Hgb (11.4-16.0) gm/dL Hct (34.0-46.0) % MCV (80.0-100.0) fL MCH (25.0-35.0) pg MCHC (31.0-37.0) g/dL RDW (11.5-15.5) % Plt Count (150-450) k/uL Neutrophils % % Lymphocytes % % Monocytes % % Eosinophils % % Basophils % % Neutrophils # (1.3-7.7) k/uL Lymphocytes # (1.0-4.8) k/uL Monocytes # (0-1.0) k/uL Eosinophils # (0-0.7) k/uL Basophils # (0-0.2) k/uL Hypochromasia PT 9.6 (9.0-12.0) sec INR 1.0 (<1.2) APTT 22.8 (22.0-30.0) sec D-Dimer 0.41 (<0.60) mg/L FEU Sodium (137-145) mmol/L Potassium (3.5-5.1) mmol/L Chloride (98-107) mmol/L Carbon Dioxide (22-30) mmol/L Anion Gap mmol/L BUN (7-17) mg/dL Creatinine (0.52-1.04) mg/dL Est GFR (CKD-EPI)AfAm (>60 ml/min/1.73 sqM) Est GFR (CKD-EPI)NonAf (>60 ml/min/1.73 sqM) Glucose (74-99) mg/dL Calcium (8.4-10.2) mg/dL Magnesium (1.6-2.3) mg/dL Total Bilirubin (0.2-1.3) mg/dL AST (14-36) U/L ALT (9-52) U/L Alkaline Phosphatase (38-126) U/L Total Creatine Kinase (30-135) U/L CK-MB (CK-2) (0.0-2.4) ng/mL CK-MB (CK-2) Rel Index Troponin I (0.000-0.034) ng/mL NT-Pro-B Natriuret Pep 27 pg/mL Total Protein (6.3-8.2) g/dL Albumin (3.5-5.0) g/dL Urine Color Urine Appearance (Clear) Urine pH (5.0-8.0) Ur Specific Arden (1.001-1.035) Urine Protein (Negative) Urine Glucose (UA) (Negative) Urine Ketones (Negative) Urine Blood (Negative) Urine Nitrite (Negative) Urine Bilirubin (Negative) Urine Urobilinogen (<2.0) mg/dL Ur Leukocyte Esterase (Negative) Urine RBC (0-5) /hpf Urine WBC (0-5) /hpf Ur Squamous Epith Cells (0-4) /hpf Urine Mucus (None) /hpf Urine HCG, Qual Not Detected (Not Detectd) 03/01/18 Range/Units 07:18 WBC (3.8-10.6) k/uL RBC (3.80-5.40) m/uL Hgb (11.4-16.0) gm/dL Hct (34.0-46.0) % MCV (80.0-100.0) fL MCH (25.0-35.0) pg MCHC (31.0-37.0) g/dL RDW (11.5-15.5) % Plt Count (150-450) k/uL Neutrophils % % Lymphocytes % % Monocytes % % Eosinophils % % Basophils % % Neutrophils # (1.3-7.7) k/uL Lymphocytes # (1.0-4.8) k/uL Monocytes # (0-1.0) k/uL Eosinophils # (0-0.7) k/uL Basophils # (0-0.2) k/uL Hypochromasia PT (9.0-12.0) sec INR (<1.2) APTT (22.0-30.0) sec D-Dimer (<0.60) mg/L FEU Sodium (137-145) mmol/L Potassium (3.5-5.1) mmol/L Chloride (98-107) mmol/L Carbon Dioxide (22-30) mmol/L Anion Gap mmol/L BUN (7-17) mg/dL Creatinine (0.52-1.04) mg/dL Est GFR (CKD-EPI)AfAm (>60 ml/min/1.73 sqM) Est GFR (CKD-EPI)NonAf (>60 ml/min/1.73 sqM) Glucose (74-99) mg/dL Calcium (8.4-10.2) mg/dL Magnesium (1.6-2.3) mg/dL Total Bilirubin (0.2-1.3) mg/dL AST (14-36) U/L ALT (9-52) U/L Alkaline Phosphatase (38-126) U/L Total Creatine Kinase (30-135) U/L CK-MB (CK-2) (0.0-2.4) ng/mL CK-MB (CK-2) Rel Index Troponin I (0.000-0.034) ng/mL NT-Pro-B Natriuret Pep pg/mL Total Protein (6.3-8.2) g/dL Albumin (3.5-5.0) g/dL Urine Color Yellow Urine Appearance Clear (Clear) Urine pH 6.5 (5.0-8.0) Ur Specific Arden 1.018 (1.001-1.035) Urine Protein Negative (Negative) Urine Glucose (UA) Negative (Negative) Urine Ketones Negative (Negative) Urine Blood Small H (Negative) Urine Nitrite Negative (Negative) Urine Bilirubin Negative (Negative) Urine Urobilinogen <2.0 (<2.0) mg/dL Ur Leukocyte Esterase Negative (Negative) Urine RBC 9 H (0-5) /hpf Urine WBC 1 (0-5) /hpf Ur Squamous Epith Cells 2 (0-4) /hpf Urine Mucus Rare H (None) /hpf Urine HCG, Qual (Not Detectd) Disposition Clinical Impression: Leukocytosis, Palpitations Disposition: HOME SELF-CARE Condition: Good Instructions: Palpitations (ED) Referrals: Marie Washington MD [Primary Care Provider] - 1-2 days Time of Disposition: 08:44
[2018-03-01 07:20] LABS: Basophils # (A) 0.1 k/uL (0-0.2); Basophils % (A) 0 %; Eosinophils # (A) 0.3 k/uL (0-0.7); Eosinophils % (A) 2 %; HCT 37.8 % (34.0-46.0); Hypochromasia Slight; Lymphocytes # (A) 3.6 k/uL (1.0-4.8); Lymphocytes % (A) 24 %; MCH 26.8 pg (25.0-35.0); MCHC 31.9 g/dL (31.0-37.0); Mean Platelet Volume 9.7; Monocytes # (A) 0.6 k/uL (0-1.0); Monocytes % (A) 4 %; Neutrophils # (A) 10.2 k/uL (1.3-7.7); Neutrophils % (A) 68 %; Platelet Count 248 k/uL (150-450); RDW 14.6 % (11.5-15.5)
[2018-03-01 07:38] LABS: ALT 19 U/L (9-52); AST 16 U/L (14-36); Albumin 3.5 g/dL (3.5-5.0); Alkaline Phosphatase 74 U/L (38-126); Anion Gap 13 mmol/L; Blood Urea Nitrogen 19 mg/dL (7-17); Calcium 9.2 mg/dL (8.4-10.2); Carbon Dioxide 20 mmol/L (22-30); Chloride 110 mmol/L (98-107); Glucose 97 mg/dL (74-99); Magnesium 1.6 mg/dL (1.6-2.3); Potassium 4.3 mmol/L (3.5-5.1); Sodium 143 mmol/L (137-145); Total Bilirubin 0.2 mg/dL (0.2-1.3); Total Protein 6.8 g/dL (6.3-8.2)
[2018-03-01 07:40] LABS: D-Dimer 0.41 mg/L FEU (<0.60); Partial Thromboplastin Time 22.8 sec (22.0-30.0); Prothrombin Time 9.6 sec (9.0-12.0)
[2018-03-01 07:48] LABS: Appearance,Urine Clear (Clear); Bilirubin,Urine Negative (Negative); Blood,Urine Small (Negative); Color,Urine Yellow; Glucose,Urine (UA) Negative (Negative); Ketones,Urine Negative (Negative); Leukocyte Esterase,Urine Negative (Negative); Mucus,Urine Rare /hpf; Nitrite,Urine Negative (Negative); PH, Urine 6.5 (5.0-8.0); Protein,Urine Negative (Negative); RBC,Urine 9 /hpf (0-5); Specific Gravity,Urine 1.018 (1.001-1.035); Squamous Epithelial Cell,Urine 2 /hpf (0-4); Urobilinogen,Urine <2.0 mg/dL (<2.0); WBC,Urine 1 /hpf (0-5)
[2018-03-01 07:48] LABS: Creatine Kinase 35 U/L (30-135)
[2018-03-01 08:01] LABS: Creatine Kinase MB <0.2 ng/mL (0.0-2.4); Troponin I <0.012 ng/mL (0.000-0.034)
--- NOTE | 2018-03-01 08:30 | XR ---
EXAMINATION TYPE: XR chest 2V DATE OF EXAM: 03/01/2018 COMPARISON: 02/15/2018 HISTORY: 33-year-old female with chest pain TECHNIQUE: Frontal and lateral views FINDINGS: Low lung volumes with crowded vascular markings. Heart normal size. Aorta and pulmonary vasculature w ithin normal limits. No consolidation or pleural effusion. IMPRESSION: Hypoventilatory changes. No acute cardiopulmonary process.
[2018-03-01 08:33] VITALS: PULSE 86; RESP 18
[2018-03-01 09:12] VITALS: BP 131/82
== END 2018-03-01 09:05 | disposition home or self-care (01) ==
LOC: EC 06:15
DX: R00.2 Palpitations (principal); D72.829 Elevated white blood cell count, unspecified; R42 Dizziness and giddiness; R07.9 Chest pain, unspecified; E66.01 Morbid (severe) obesity due to excess calories; Z68.42 Body mass index [BMI] 45.0-49.9, adult; F17.200 Nicotine dependence, unspecified, uncomplicated; Z86.14 Personal history of Methicillin resistant Staphylococcus aureus infection; Z79.82 Long term (current) use of aspirin; Z88.8 Allergy status to other drugs, medicaments and biological substances; Z82.49 Family history of ischemic heart disease and other diseases of the circulatory system
CPT/HCPCS: 36415; 71046; 80053; 81001; 81025; 82550; 82553; 83735; 83880; 84484; 85025; 85379; 85610; 85730; 93005; 96360; 99285

== ENCOUNTER → 2018-05-20 | Outpatient (CLI) | payer OTHER ==
[2018-05-20 15:23] VITALS: BP 140/94; PULSE 88; RESP 14; TEMP 98.4; BMI 46.9
--- NOTE | 2018-05-20 15:43 | P.HPBAR ---
Bariatric H&P - History & Physicial H&P Date: 05/20/18 History & Physicial: Visit/CC: sleeve consult Patient initial contact: Initial weight: 133.81 kg Initial weight in pounds: 295.00 Height: 5 ft 6.5 in Initial BMI: 46.9 Last weight: Current weight: 133.81 kg Current weight in pounds: 295.00 Current BMI: 46.9 Stephens body weight (based on NIH guidelines): 60.101 kg Excess body weight loss: 0.0% The patient is a 33 year-old F who presents for Bariatric Assessment. Patient presents for new patient consultation. She's had lifetime problems obesity. She is obese with a BMI 47. Past Medical History Past Medical History: Renal Disease Additional Past Medical History / Comment(s): Migraines, sinus problems, peptic ulcer H.pylori (positive), history of upper GI bleed, morbid obesity, blocked bilateral carotid arteries "one is 50% blocked/ the other 70%" per patient on ,. January 2018 patient was found unresponsive but as of April 2018 all heart diagnostic studies have been normal with exception of carotid artery blockage so cause of this unresponsiveness is unknown, one theory is that she may have had a reaction to Diflucan tablets as this happened within minutes of taking this medication. History of Any Multi-Drug Resistant Organisms: MRSA Year Discovered:: 2016 MDRO Source:: GROIN Past Surgical History: Section, Cholecystectomy, Heart Catheterization Additional Past Surgical History / Comment(s): Lithotripsy for kidney stone removal, heart catheterization in February at [facility] (on ) Past Anesthesia/Blood Transfusion Reactions: No Reported Reaction Past Psychological History: No Psychological Hx Reported Additional Psychological History / Comment(s): Pt resides with her 8 yr old son. She is independent. Smoking Status: Current every day smoker Past Alcohol Use History: Rare Additional Past Alcohol Use History / Comment(s): Pt started smoking in 2000 and is a half ppd smoker. Past Drug Use History: None Reported - Past Family History Father Family Medical History: Coronary Artery Disease (CAD), Myocardial Infarction (MD ) Additional Family Medical History / Comment(s): Father had a MD at the age of 60yrs. Mother Family Medical History: Diabetes Mellitus, Hypertension, Osteoarthritis (OA) Surgical - Exam Vital Signs Temp Pulse Resp BP 98.4 F 88 14 140/94 05/20/18 14:56 05/20/18 14:56 05/20/18 14:56 05/20/18 14:56 - General well developed, no distress - Eyes PERRL - ENT normal pinna - Neck no masses - Respiratory normal expansion - Cardiovascular Rhythm: regular - Abdomen Abdomen: soft, non tender Bariatric Assessment & Plan Plan: Morbid obesity with BMI 47. Patient will be scheduled for EGD. We went over the risks and benefits of sleeve gastrectomy. I discussed the possible risk of staple line disruption, bleeding or perforation. Patient will follow-up in one month after EGD. Bariatric Checklist Checklist: Plan: Checklist: EGD: 1. Hiatal hernia: 2. H. Pylori: HgbA1c: Vitamin D: Smoking: Current every day smoker Primary care physician referral: Selina Payne) Psychiatry clearance: Cardiology clearance: Sleep study: Diet journal: VTE risk score: VTE risk level: Rehab needs at discharge:
== END | disposition home or self-care (01) ==
LOC: BARWHC3 14:28
PROVIDERS: ATTEND Surgery
DX: E66.01 Morbid (severe) obesity due to excess calories (principal); F17.200 Nicotine dependence, unspecified, uncomplicated; Z68.42 Body mass index [BMI] 45.0-49.9, adult
CPT/HCPCS: 99211

== ENCOUNTER → 2018-06-06 | Outpatient (CLI) | payer OTHER ==
[2018-06-06 12:23] LABS: HCT 34.8 % (34.0-46.0); HGB 11.4 gm/dL (11.4-16.0); Hypochromasia Slight; MCH 26.7 pg (25.0-35.0); MCHC 32.6 g/dL (31.0-37.0); MCV 81.9 fL (80.0-100.0); Mean Platelet Volume 9.1; Platelet Count 232 k/uL (150-450); RBC 4.25 m/uL (3.80-5.40); RDW 15.3 % (11.5-15.5); WBC 10.7 k/uL (3.8-10.6)
[2018-06-06 12:35] LABS: ALT 23 U/L (9-52); AST 12 U/L (14-36); Albumin 3.6 g/dL (3.5-5.0); Alkaline Phosphatase 64 U/L (38-126); Anion Gap 8 mmol/L; Blood Urea Nitrogen 13 mg/dL (7-17); Calcium 9.2 mg/dL (8.4-10.2); Carbon Dioxide 22 mmol/L (22-30); Chloride 110 mmol/L (98-107); Cholesterol 155 mg/dL (<200); Glucose 86 mg/dL (74-99); HDL Cholesterol 34 mg/dL (40-60); LDL Cholesterol,Calculated 98 mg/dL (0-99); Potassium 4.3 mmol/L (3.5-5.1); Sodium 140 mmol/L (137-145); Total Bilirubin 0.3 mg/dL (0.2-1.3); Total Protein 6.6 g/dL (6.3-8.2); Triglycerides 117 mg/dL (<150)
[2018-06-06 18:50] LABS: Vitamin D 25 Hydroxy 38.9 ng/mL (30.0-100.0)
[2018-06-06 19:29] LABS: Hemoglobin A1C 5.4 % (4.0-6.0)
[2018-06-10 08:03] LABS: Anabasine Urine 3.6 ng/mL (<2.0)
== END | disposition home or self-care (01) ==
LOC: LABWHC1 11:22
PROVIDERS: ATTEND Surgery
DX: E89.1 Postprocedural hypoinsulinemia (principal); E44.0 Moderate protein-calorie malnutrition; E55.9 Vitamin D deficiency, unspecified
CPT/HCPCS: 84425; 80061; 80053; 82607; 84443; 85027; 82306; 83036; 93005; 36415; G0480; 80323

== ENCOUNTER → 2018-07-03 | Outpatient (CLI) | payer OTHER ==
--- NOTE | 2018-07-03 17:40 | CONS ---
CONSULTATION REASON FOR CONSULTATION: Sleep apnea. This is a 33-year-old female patient coming in with symptoms of excessive tiredness and sleepiness during the day. The patient is reporting loud snoring and she has apneas throughout the night. She is waking up with a sore throat and she occasionally wakes up in the middle of night either from her loud snoring or gasping for air. She has also nocturnal palpitations. She wakes up tired during the day. She has problems with paying attention and concentration. She falls asleep during the day at times when she is supposed to be at work and awake. She has problems with concentration and she is quite irritable. She goes to bed around 10 p.m., wakes up at 4:30 a.m. in the morning. She works at [employer] in the [employer]. On weekends she goes to bed around 11 p.m., wakes up at 7 a.m. in the morning. It takes her a few minutes to fall asleep. Napoleon score is 16. She used to weigh 350 pounds back in 2012 and currently she is down to 306. As such, she has lost around 35 to 40 pounds. She sleeps on her side. No history of any motor vehicle accidents because of feeling drowsy or sleepy. She has chronic anxiety. She is on Xanax. This patient was seen in the sleep center back in [address] Geller. Back then she used to weigh 345 pounds. She underwent a screening polysomnogram in April of 2013 and she was diagnosed having severe obstructive sleep apnea. Back then the patient had an apnea-hypopnea index of 122, and the lowest pulse ox measured was 79%. She spent approximately 20% of her sleep time at a pulse ox of less than 90%. Based on this, she was asked to come into the sleep center to undergo a CPAP titration. Nevertheless, the patient failed to show up for her CPAP therapy. She did not understand the severity of her illness and she was going through a rough time with family matters, and the treatment was not implemented and followed up. Today she is coming in with worsening symptoms; she is at the point where she cannot function, especially with day-to-day activities, and she is requesting treatment. She is also seeking bariatric surgery and she is being followed up through [facility]. PAST MEDICAL HISTORY: 1. Severe obstructive sleep apnea with an apnea-hypopnea index of 122. 2. Obesity. 3. Depression. 4. Anxiety. 5. Peptic ulcer disease. 6. History of kidney stones. SURGICAL HISTORY: 1. Cholecystectomy. 2. Removal of kidney stones. 3. . 4. Previous cardiac catheterization. DRUG ALLERGIES: IODINE. OUTPATIENT MEDICATIONS: Xanax and aspirin. SOCIAL HISTORY: On and off smoker. No history of alcoholism. No history of IV drugs. Works at [employer]. FAMILY HISTORY: Positive for hypertension and heart problems. REVIEW OF SYSTEMS: Twelve-point review of systems was done, and the positive findings are all mentioned above in the history of present illness. No reported history of nocturia. No grinding of the teeth. She wakes up with a sore throat and dry mouth. She has no night terrors, no panic attacks, no nightmares, no heartburn, no restlessness in the lower extremities. No sleepwalking or sleeptalking. PHYSICAL EXAMINATION: BP is 128/72, pulse 82, respirations 16, temperature 98.6, saturation 97% on room air. Weight is 306. Height is 5 feet 5 inches. Neck size 16-1/4 inches. Temperature 98.6. GENERAL APPEARANCE: Calm, comfortable. No acute distress. Head is atraumatic, normocephalic. Neck is short, supple. Crowding of posterior pharynx, Mallampati class 4. No goiter or neck masses. LUNGS: Clear to auscultation. HEART: Heart sounds are regular rate and rhythm. Normal S1, S2. No S3, S4. No murmurs. ABDOMEN: Soft, nontender. No organomegaly. EXTREMITIES: No edema. No cyanosis or clubbing. NEUROLOGIC: The patient is alert and oriented x3. No focal neurological deficits. PSYCHIATRIC: Negative for active depression for now. She has chronic anxiety, taking Xanax on an as-needed basis. SKIN: Negative for any wounds or ulceration. IMPRESSION: 1. Severe symptomatic obstructive sleep apnea. Based on the sleep study that was done in 2012, patient had an AHI of 122. 2. Hypersomnia. Napoleon score of 16. 3. Nocturnal oxygen desaturation, as the patient spent approximately 20% of sleep time with a pulse ox of less than 90%. 4. Chronic anxiety. 5. Obesity. Current BMI is 50.9. PLAN: 1. Encourage further weight loss. 2. The patient is already pursuing bariatric surgery. 3. She is quite symptomatic from her disease. She needs to come back to the sleep center to undergo a CPAP titration. The patient will see me back following her CPAP titration for a compliancy check. 4. Avoid driving, especially when feeling drowsy or sleepy, until her sleep apnea is effectively treated. MMDARCIEL / IJN: [id number] /
== END | disposition home or self-care (01) ==
LOC: SLEEP 15:02
PROVIDERS: ATTEND Internal Medicine Critical Care Medicine
DX: G47.33 Obstructive sleep apnea (adult) (pediatric) (principal); F41.9 Anxiety disorder, unspecified; E66.9 Obesity, unspecified; Z68.43 Body mass index [BMI] 50.0-59.9, adult; Z79.899 Other long term (current) drug therapy
CPT/HCPCS: 99211

== ENCOUNTER 2018-07-20 21:49 | Emergency (ER) | payer OTHER ==
[2018-07-20 21:56] VITALS: RESP 18
[2018-07-20] MEDS ORDERED: ASPIRIN 81 MG PO STA (22:16)
[2018-07-20] MEDS ORDERED: SODIUM CHLORIDE 0.9% 1,000 ML IV STA (22:16)
--- NOTE | 2018-07-20 22:37 | XR ---
EXAMINATION TYPE: XR chest 2V DATE OF EXAM: 07/20/2018 COMPARISON: 03/01/2018 HISTORY: Chest pain TECHNIQUE: Frontal and lateral views of the chest are obtained. FINDINGS: Heart and mediastinum are normal. Lungs are clear. Diaphragm is normal. Bony thorax appear s normal. IMPRESSION: Normal chest. No change.
[2018-07-20 22:51] LABS: ALT 19 U/L (9-52); AST 40 U/L (14-36); Albumin 4.2 g/dL (3.5-5.0); Alkaline Phosphatase 64 U/L (38-126); Anion Gap 10 mmol/L; Blood Urea Nitrogen 14 mg/dL (7-17); Calcium 9.5 mg/dL (8.4-10.2); Carbon Dioxide 22 mmol/L (22-30); Chloride 106 mmol/L (98-107); Glucose 83 mg/dL (74-99); Lipase 91 U/L (23-300); Magnesium 1.7 mg/dL (1.6-2.3); Sodium 138 mmol/L (137-145); Total Bilirubin 0.8 mg/dL (0.2-1.3)
[2018-07-20 23:00] LABS: Basophils # (A) 0.1 k/uL (0-0.2); Basophils % (A) 1 %; Eosinophils # (A) 0.3 k/uL (0-0.7); Eosinophils % (A) 2 %; HCT 38.9 % (34.0-46.0); HGB 11.7 gm/dL (11.4-16.0); Hypochromasia Slight; Lymphocytes # (A) 5.3 k/uL (1.0-4.8); Lymphocytes % (A) 34 %; MCH 24.9 pg (25.0-35.0); MCHC 30.2 g/dL (31.0-37.0); MCV 82.5 fL (80.0-100.0); Mean Platelet Volume 8.2; Monocytes # (A) 0.7 k/uL (0-1.0); Monocytes % (A) 5 %; Neutrophils # (A) 8.8 k/uL (1.3-7.7); Neutrophils % (A) 57 %; Platelet Count 279 k/uL (150-450); RBC 4.72 m/uL (3.80-5.40); RDW 15.3 % (11.5-15.5); WBC 15.5 k/uL (3.8-10.6)
--- NOTE | 2018-07-20 23:04 | ED ---
Chest Pain HPI - General Chief Complaint: Chest Pain Stated Complaint: Chest Pain Time Seen by Provider: 07/20/18 22:16 Source: patient Mode of arrival: ambulatory Limitations: no limitations - History of Present Illness Initial Comments: Sonam is a 33-year-old female with past medical history as documented in the emergency department for evaluation of right-sided chest wall and shoulder pain. Patient reports she's been having this pain intermittently for a couple of days over today he felt worse. She became concerned that this may be her heart as she does have a history of being found unresponsive and is uncertain why so she decided to come to the ER for evaluation. She describes the discomfort as being in her right-sided chest, worse with palpation, radiates to the right shoulder. Worse with breathing at times. Not exertional, not worse with laying down. Not associated with any resources lightheadedness or near syncope. Patient denies any recent illness, fevers, chills, nausea or vomiting. She reports that aside from this discomfort she's been otherwise in her usual state of health. - Related Data Home Medications Medication Instructions Recorded Confirmed Aspirin EC [Ecotrin Low Dose] 81 mg PO DIRECTED PRN 03/01/18 06/13/18 ALPRAZolam [Xanax] 0.25 mg PO TID PRN 05/20/18 06/13/18 Ergocalciferol [Vitamin D2] 50,000 unit PO Q7D 05/20/18 06/13/18 Ibuprofen [Motrin] 600 mg PO Q8HR PRN 06/13/18 06/13/18 Allergies Allergy/AdvReac Type Severity Reaction Status Date / Time Iodinated Contrast- Oral and Allergy Severe Anaphylaxis Verified 07/20/18 21:56 IV Dye hydrochlorothiazide Allergy Rash/Hives Verified 07/20/18 21:56 fluconazole [From Diflucan] AdvReac Severe Chest Pain Verified 07/20/18 21:56 atorvastatin [From Lipitor] AdvReac Intermediate Chest Pain Verified 07/20/18 21 :56 Review of Systems ROS Statement: Those systems with pertinent positive or pertinent negative responses have been documented in the HPI. ROS Other: All systems not noted in ROS Statement are negative. Past Medical History Past Medical History: Renal Disease Additional Past Medical History / Comment(s): Migraines, sinus problems, peptic ulcer H.pylori (positive), history of upper GI bleed, morbid obesity, blocked bilateral carotid arteries "one is 50% blocked/ the other 70%" per patient on ,. January 2018 patient was found unresponsive but as of April 2018 all heart diagnostic studies have been normal with exception of carotid artery blockage so cause of this unresponsiveness is unknown, one theory is that she may have had a reaction to Diflucan tablets as this happened within minutes of taking this medication. History of Any Multi-Drug Resistant Organisms: MRSA Date of last positivie culture/infection: 2015 MDRO Source:: GROIN Past Surgical History: Section, Cholecystectomy, Heart Catheterization Additional Past Surgical History / Comment(s): Lithotripsy for kidney stone removal, heart catheterization in February at [facility] (on ) Past Anesthesia/Blood Transfusion Reactions: No Reported Reaction Past Psychological History: No Psychological Hx Reported Smoking Status: Current every day smoker Past Alcohol Use History: None Reported - Past Family History Father Family Medical History: Coronary Artery Disease (CAD), Myocardial Infarction (OR ) Additional Family Medical History / Comment(s): Father had a OR at the age of 60yrs. Mother Family Medical History: Diabetes Mellitus, Hypertension, Osteoarthritis (OA) General Exam - General Exam Comments Initial Comments: GENERAL: Patient is well-developed and well-nourished, obese. Patient is nontoxic and well-hydrated and is in no distress. HENT: Normocephalic, Atraumatic. Neck is soft and supple. No significant lymphadenopathy is noted. Oropharynx is clear. Moist mucous membranes. Neck has full range of motion without eliciting any pain. EYES: The sclera were anicteric and conjunctiva were pink and moist. Extraocular movements were intact and pupils were equal round and reactive to light. Eyelids were unremarkable. PULMONARY: Unlabored respirations. Good breath sounds bilaterally. No audible rales rhonchi or wheezing was noted. Pain with palpation of the right chest wall CARDIOVASCULAR: There is a regular rate and rhythm without any murmurs gallops or rubs. ABDOMEN: Soft and nontender with normal bowel sounds. SKIN: Skin is clear with no lesions or rashes and otherwise unremarkable. NEUROLOGIC: Patient is alert and oriented x3. Cranial nerves II through XII are grossly intact. Motor and sensory are also intact. Normal speech, volume and content. Symmetrical smile. MUSCULOSKELETAL: Normal extremities with adequate strength and full range of motion. No lower extremity swelling or edema. No calf tenderness. LYMPHATICS: No significant lymphadenopathy is noted PSYCHIATRIC: Normal psychiatric evaluation. Limitations: no limitations Limitations: no limitations Course Vital Signs 07/20/18 07/20/18 07/21/18 21:53 22:59 00:02 Temperature 98.6 F Pulse Rate 71 86 75 Respiratory 18 18 18 Rate Blood Pressure 134/91 124/70 118/72 O2 Sat by Pulse 99 100 100 Oximetry 07/21/18 01:39 Temperature 97 F L Pulse Rate 65 Respiratory 18 Rate Blood Pressure 118/72 O2 Sat by Pulse 98 Oximetry Chest Pain MDM - MDM She was seen and evaluated history was obtained from patient cardiac workup was ordered EKG was reviewed reveals a sinus rhythm rate of 71, normal axis, normal intervals, no acute ST elevations or depressions no evidence of acute ischemia or infarction Chest x-ray was unremarkable Labs unremarkable Results were discussed with the patient, I have a high suspicion for musculoskeletal chest wall pain. Advised patient to treat this symptomatically. Return parameters were discussed questions pertaining care were answered best my ability patient was discharged home in stable condition Disposition Clinical Impression: Atypical chest pain Disposition: HOME SELF-CARE Condition: Good Instructions: Chest Pain (ED) Additional Instructions: Return for any acute worsening, or development of any new or concerning symptoms Avoid heavy lifting or any movements that worsen the right-sided chest pain All of the her primary care doctor on Sunday to discuss the possibility of need for PPI medications were treatment of GERD Is patient prescribed a controlled substance at d/c from ED?: No Referrals: Marie Washington MD [Primary Care Provider] - 1-2 days Time of Disposition: 00:17
[2018-07-20 23:06] LABS: Potassium 5.4 mmol/L (3.5-5.1)
[2018-07-20 23:21] LABS: Partial Thromboplastin Time 22.4 sec (22.0-30.0); Prothrombin Time 9.7 sec (9.0-12.0)
[2018-07-20] MEDS ORDERED: MAG HYDROX/AL HYDROX/SIMETH 30 ML, HYOSCYAMINE ELIXIR 10 ML, CIMETIDINE HCL 300 MG, LID... PO STA ×4 (23:41)
[2018-07-20] MEDS ORDERED: KETOROLAC 30 MG/ML 1 ML VIAL IVP STA (23:41)
[2018-07-21 00:04] VITALS: BP 118/72
[2018-07-21 00:06] LABS: Anisocytosis (M) Present
[2018-07-21 00:08] LABS: Large Platelets Present; Polychromasia Present
[2018-07-21 01:40] VITALS: PULSE 65; TEMP 97
== END 2018-07-21 01:20 | disposition home or self-care (01) ==
LOC: EC 21:49
DX: R07.89 Other chest pain (principal); M25.511 Pain in right shoulder; F17.200 Nicotine dependence, unspecified, uncomplicated; Z86.14 Personal history of Methicillin resistant Staphylococcus aureus infection; Z95.818 Presence of other cardiac implants and grafts; Z82.49 Family history of ischemic heart disease and other diseases of the circulatory system; Z91.041 Radiographic dye allergy status; Z88.8 Allergy status to other drugs, medicaments and biological substances
CPT/HCPCS: 36415; 93005; 80053; 83690; 83735; 84484; 85025; 85610; 85730; 71046; 99285; 96374; 96361; J1885

== ENCOUNTER 2019-06-27 09:03 | Emergency (ER) | payer OTHER ==
[2019-06-27 09:16] VITALS: TEMP 97.9
[2019-06-27 10:01] LABS: Basophils # (A) 0.1 k/uL (0-0.2); Basophils % (A) 1 %; Eosinophils # (A) 0.4 k/uL (0-0.7); Eosinophils % (A) 3 %; HCT 41.1 % (34.0-46.0); HGB 12.9 gm/dL (11.4-16.0); Lymphocytes # (A) 3.6 k/uL (1.0-4.8); Lymphocytes % (A) 26 %; MCHC 31.5 g/dL (31.0-37.0); MCV 82.6 fL (80.0-100.0); Mean Platelet Volume 9.3; Monocytes # (A) 0.5 k/uL (0-1.0); Monocytes % (A) 3 %; Neutrophils # (A) 8.9 k/uL (1.3-7.7); Neutrophils % (A) 66 %; Platelet Count 272 k/uL (150-450); RBC 4.97 m/uL (3.80-5.40); RDW 15.3 % (11.5-15.5); WBC 13.5 k/uL (3.8-10.6)
[2019-06-27 10:20] LABS: Amorphous Sediment,Urine Rare /hpf; Appearance,Urine Clear (Clear); Bacteria,Urine Rare /hpf; Bilirubin,Urine Negative (Negative); Blood,Urine Moderate (Negative); Color,Urine Yellow; Glucose,Urine (UA) Negative (Negative); Ketones,Urine Negative (Negative); Leukocyte Esterase,Urine Trace (Negative); Mucus,Urine Few /hpf; Nitrite,Urine Negative (Negative); PH, Urine 6.5 (5.0-8.0); Protein,Urine Trace (Negative); RBC,Urine 4 /hpf (0-5); Specific Gravity,Urine 1.022 (1.001-1.035); Squamous Epithelial Cell,Urine 3 /hpf (0-4); Urobilinogen,Urine <2.0 mg/dL (<2.0)
[2019-06-27 10:24] LABS: ALT 9 U/L (9-52); AST 14 U/L (14-36); African American GFR (CKD) >90 (>60 ml/min/1.73 sqM); Alkaline Phosphatase 78 U/L (38-126); Amylase 58 U/L (30-110); Anion Gap 10 mmol/L; Blood Urea Nitrogen 13 mg/dL (7-17); Calcium 9.5 mg/dL (8.4-10.2); Carbon Dioxide 21 mmol/L (22-30); Chloride 111 mmol/L (98-107); Glucose 96 mg/dL (74-99); Potassium 4.5 mmol/L (3.5-5.1); Sodium 142 mmol/L (137-145); Total Bilirubin 0.3 mg/dL (0.2-1.3); Total Protein 7.6 g/dL (6.3-8.2)
--- NOTE | 2019-06-27 10:34 | XR ---
EXAMINATION TYPE: XR chest 2V DATE OF EXAM: 06/27/2019 COMPARISON: Prior chest x-ray 07/20/2018 HISTORY: Shortness of breath, pain TECHNIQUE: Frontal and lateral views of the chest are obtained. FINDINGS: There is no focal air space opacity, pleural effusion, or pneumothorax seen. The cardiac silhouette size is within normal limits. The osseous structures are intact. Surgical clips are pres ent in the right upper quadrant. There is eventration of the right hemidiaphragm. IMPRESSION: No acute cardiopulmonary process.
--- NOTE | 2019-06-27 10:35 | XR ---
KUB HISTORY: Shortness of breath and left-sided abdomen pain Frontal KUB and 2 images correlated prior exam 01/17/2017 There is no interval change. Surgical clips present in the right upper quadrant. No evident obstructi on or pneumoperitoneum. Intrauterine contraceptive device present within the pelvis. There is overlyi ng artifact. IMPRESSION: No acute abnormality. Postprocedural changes.
[2019-06-27] MEDS ORDERED: SODIUM CHLORIDE 0.9% 1,000 ML IV ONE (11:00)
[2019-06-27] MEDS ORDERED: ONDANSETRON 4 MG/2 ML VIAL IVP STA (11:00)
[2019-06-27] MEDS ORDERED: KETOROLAC 30 MG/ML 1 ML VIAL IVP STA (11:00)
--- NOTE | 2019-06-27 11:36 | CT ---
EXAMINATION TYPE: CT abdomen pelvis wo con DATE OF EXAM: 06/27/2019 COMPARISON: Prior CT 01/17/2017 HISTORY: Left lower quadrant pain. CT DLP: 1551.4 mGycm Automated exposure control for dose reduction was used. TECHNIQUE: Helical acquisition of images from the lung bases through the pelvis. FINDINGS: Lack of contrast could compromise sensitivity. LUNG BASES: No significant abnormality is appreciated. AORTA: No significant abnormality is appreciated. LIVER/GB: The liver is enlarged. Patient is post cholecystectomy. PANCREAS: No significant abnormality is seen. SPLEEN: No significant abnormality is seen. ADRENALS: 16 mm low dense right adrenal nodule likely represents an adenoma.. KIDNEYS: Punctate calcifications present at the upper pole the left kidney, too are 3 1 mm lesions no anya, no hydronephrosis or ureteral calculus bilaterally REPRODUCTIVE ORGANS: Intrauterine contraceptive device may be somewhat low lying within the endometr ium. Ovaries are unremarkable. URINARY BLADDER: No significant abnormality is seen. BOWEL: Diverticular changes associated with the sigmoid colon FREE AIR: No Free Air is visible. ASCITES: None visible. PELVIC ADENOPATHY: None visualized. RETROPERITONEAL ADENOPATHY: No Retroperitoneal Adenopathy visible. OSSEOUS STRUCTURES: Degenerative disc change present at L5-S1 IMPRESSION: DIVERTICULOSIS. NONCONTRAST EXAM. POSTOP, POSTPROCEDURAL CHANGES. IUD DESCRIBED. NONOBSTRUCTIVE LE FT NEPHROLITHIASIS. RIGHT ADRENAL ADENOMA SUSPECTED.
--- NOTE | 2019-06-27 12:08 | ED ---
Abdominal Pain HPI - General Chief Complaint: Abdominal Pain Stated Complaint: SOB/left side abdominal pain Time Seen by Provider: 06/27/19 09:22 Source: patient, RN notes reviewed Mode of arrival: ambulatory Limitations: no limitations - History of Present Illness Initial Comments: This a 34-year-old female presents emergency from chief complaint left flank pain left-sided abdominal pain. Patient states the pain comes and goes. Patient states that it gets unbearable at times she states that sometimes it takes her breath away. Patient denies any fevers or chills she has meant to some nausea no vomiting diarrhea constipation no dysuria no hematuria. She does have a history kidney stones. She states pain is worse with movement. Patient denies any other complaints. - Related Data Home Medications Medication Instructions Recorded Confirmed Acetaminophen Tab [Tylenol Tab] 1,000 mg PO Q6HR PRN 06/27/19 06/27/19 Furosemide [Lasix] 40 mg PO DAILY 06/27/19 06/27/19 Previous Rx's Medication Instructions Recorded Cyclobenzaprine [Flexeril] 5 mg PO TID PRN #15 tablet 06/27/19 Ketorolac [Toradol] 10 mg PO Q8HR #15 tab 06/27/19 Omeprazole [PriLOSEC] 20 mg PO AC-BRKFST #14 cap 06/27/19 Allergies Allergy/AdvReac Type Severity Reaction Status Date / Time Iodinated Contrast- Oral and Allergy Severe Anaphylaxis Verified 06/27/19 09:34 IV Dye hydrochlorothiazide Allergy Rash/Hives Verified 06/27/19 09:34 fluconazole [From Diflucan] AdvReac Severe Chest Pain Verified 06/27/19 09:34 atorvastatin [From Lipitor] AdvReac Intermediate Chest Pain Verified 06/27/19 09:34 Review of Systems ROS Statement: Those systems with pertinent positive or pertinent negative responses have been documented in the HPI. ROS Other: All systems not noted in ROS Statement are negative. Past Medical History Past Medical History: Renal Disease Additional Past Medical History / Comment(s): Migraines, sinus problems, peptic ulcer H.pylori (positive), history of upper GI bleed, morbid obesity, blocked bilateral carotid arteries "one is 50% blocked/ the other 70%" per patient on 05/20/18, achalasia History of Any Multi-Drug Resistant Organisms: MRSA Date of last positivie culture/infection: 2016 MDRO Source:: GROIN Past Surgical History: Section, Cholecystectomy, Heart Catheterization Additional Past Surgical History / Comment(s): Lithotripsy for kidney stone removal, heart catheterization in February at [facility] (on Mar) Past Anesthesia/Blood Transfusion Reactions: No Reported Reaction Past Psychological History: No Psychological Hx Reported Smoking Status: Current every day smoker Past Alcohol Use History: None Reported Past Drug Use History: None Reported - Past Family History Father Family Medical History: Coronary Artery Disease (CAD), Myocardial Infarction ([place]) Additional Family Medical History / Comment(s): Father had a MN at the age of 60yrs. Mother Family Medical History: Diabetes Mellitus, Hypertension, Osteoarthritis (OA) General Exam Limitations: no limitations General appearance: alert, in no apparent distress Head exam: Present: atraumatic, normocephalic, normal inspection Eye exam: Present: normal appearance, PERRL, EOMI. Absent: scleral icterus, conjunctival injection, periorbital swelling ENT exam: Present: normal exam, normal oropharynx, mucous membranes moist Neck exam: Present: normal inspection, full ROM. Absent: tenderness, meningismus, lymphadenopathy Respiratory exam: Present: normal lung sounds bilaterally. Absent: respiratory distress, wheezes, rales, rhonchi, stridor Cardiovascular Exam: Present: regular rate, normal rhythm, normal heart sounds. Absent: systolic murmur, diastolic murmur, rubs, gallop, clicks GI/Abdominal exam: Present: soft, tenderness (Left Upper quadrant), normal bowel sounds. Absent: distended, guarding, rebound, rigid Back exam: Present: full ROM, tenderness, paraspinal tenderness. Absent: CVA tenderness (R), CVA tenderness (L), vertebral tenderness Neurological exam: Present: alert, oriented X3, CN II-XII intact Psychiatric exam: Present: normal affect, normal mood Course Vital Signs 06/27/19 09:12 Temperature 97.9 F Pulse Rate 89 Respiratory 20 Rate Blood Pressure 117/82 O2 Sat by Pulse 99 Oximetry Medical Decision Making - Medical Decision Making 34-year-old female presents emergency from for left sided abdominal pain left flank pain. This is reproducible pain and may be more musculoskeletal nature. Patient had labs and CT which is unremarkable. EKG unremarkable. Patient does feel improved after Toradol be discharged muscle relaxers she states [id number] anti-inflammatories and will be discharged with omeprazole - Lab Data Result diagrams: 06/27/19 09:50 06/27/19 09:50 Lab Results 06/27/19 06/27/19 06/27/19 Range/Units 09:50 09:50 09:50 WBC (3.8-10.6) k/uL RBC (3.80-5.40) m/uL Hgb (11.4-16.0) gm/dL Hct (34.0-46.0) % MCV (80.0-100.0) fL MCH (25.0-35.0) pg MCHC (31.0-37.0) g/dL RDW (11.5-15.5) % Plt Count (150-450) k/uL Neutrophils % % Lymphocytes % % Monocytes % % Eosinophils % % Basophils % % Neutrophils # (1.3-7.7) k/uL Lymphocytes # (1.0-4.8) k/uL Monocytes # (0-1.0) k/uL Eosinophils # (0-0.7) k/uL Basophils # (0-0.2) k/uL Sodium 142 (137-145) mmol/L Potassium 4.5 (3.5-5.1) mmol/L Chloride 111 H (98-107) mmol/L Carbon Dioxide 21 L (22-30) mmol/L Anion Gap 10 mmol/L BUN 13 (7-17) mg/dL Creatinine 0.64 (0.52-1.04) mg/dL Est GFR (CKD-EPI)AfAm >90 (>60 ml/min/1.73 sqM) Est GFR (CKD-EPI)NonAf >90 (>60 ml/min/1.73 sqM) Glucose 96 (74-99) mg/dL Calcium 9.5 (8.4-10.2) mg/dL Total Bilirubin 0.3 (0.2-1.3) mg/dL AST 14 (14-36) U/L ALT 9 (9-52) U/L Alkaline Phosphatase 78 (38-126) U/L Troponin I (0.000-0.034) ng/mL Total Protein 7.6 (6.3-8.2) g/dL Albumin 4.0 (3.5-5.0) g/dL Amylase 58 (30-110) U/L Lipase 65 (23-300) U/L Urine Color Yellow Urine Appearance Clear (Clear) Urine pH 6.5 (5.0-8.0) Ur Specific [place] 1.022 (1.001-1.035) Urine Protein Trace H (Negative) Urine Glucose (UA) Negative (Negative) Urine Ketones Negative (Negative) Urine Blood Moderate H (Negative) Urine Nitrite Negative (Negative) Urine Bilirubin Negative (Negative) Urine Urobilinogen <2.0 (<2.0) mg/dL Ur Leukocyte Esterase Trace H (Negative) Urine RBC 4 (0-5) /hpf Urine WBC 1 (0-5) /hpf Ur Squamous Epith Cells 3 (0-4) /hpf Amorphous Sediment Rare H (None) /hpf Urine Bacteria Rare H (None) /hpf Urine Mucus Few H (None) /hpf Urine HCG, Qual Not Detected (Not Detectd) 06/27/19 06/27/19 Range/Units 09:50 09:50 WBC 13.5 H (3.8-10.6) k/uL RBC 4.97 (3.80-5.40) m/uL Hgb 12.9 (11.4-16.0) gm/dL Hct 41.1 (34.0-46.0) % MCV 82.6 (80.0-100.0) fL MCH 26.0 (25.0-35.0) pg MCHC 31.5 (31.0-37.0) g/dL RDW 15.3 (11.5-15.5) % Plt Count 272 (150-450) k/uL Neutrophils % 66 % Lymphocytes % 26 % Monocytes % 3 % Eosinophils % 3 % Basophils % 1 % Neutrophils # 8.9 H (1.3-7.7) k/uL Lymphocytes # 3.6 (1.0-4.8) k/uL Monocytes # 0.5 (0-1.0) k/uL Eosinophils # 0.4 (0-0.7) k/uL Basophils # 0.1 (0-0.2) k/uL Sodium (137-145) mmol/L Potassium (3.5-5.1) mmol/L Chloride (98-107) mmol/L Carbon Dioxide (22-30) mmol/L Anion Gap mmol/L BUN (7-17) mg/dL Creatinine (0.52-1.04) mg/dL Est GFR (CKD-EPI)AfAm (>60 ml/min/1.73 sqM) Est GFR (CKD-EPI)NonAf (>60 ml/min/1.73 sqM) Glucose (74-99) mg/dL Calcium (8.4-10.2) mg/dL Total Bilirubin (0.2-1.3) mg/dL AST (14-36) U/L ALT (9-52) U/L Alkaline Phosphatase (38-126) U/L Troponin I <0.012 (0.000-0.034) ng/mL Total Protein (6.3-8.2) g/dL Albumin (3.5-5.0) g/dL Amylase (30-110) U/L Lipase (23-300) U/L Urine Color Urine Appearance (Clear) Urine pH (5.0-8.0) Ur Specific [place] (1.001-1.035) Urine Protein (Negative) Urine Glucose (UA) (Negative) Urine Ketones (Negative) Urine Blood (Negative) Urine Nitrite (Negative) Urine Bilirubin (Negative) Urine Urobilinogen (<2.0) mg/dL Ur Leukocyte Esterase (Negative) Urine RBC (0-5) /hpf Urine WBC (0-5) /hpf Ur Squamous Epith Cells (0-4) /hpf Amorphous Sediment (None) /hpf Urine Bacteria (None) /hpf Urine Mucus (None) /hpf Urine HCG, Qual (Not Detectd) - EKG Data EKG Comments: EKG performed at 10:11 sinus rhythm rate of 79 pr 146 qrs 82 qt/qtc 374/428 Disposition Clinical Impression: Abdominal pain, Left flank pain Disposition: HOME SELF-CARE Condition: Stable Instructions (If sedation given, give patient instructions): Abdominal Pain (ED) Additional Instructions: Please return to the Emergency Department if symptoms worsen or any other concerns. Prescriptions: Cyclobenzaprine [Flexeril] 5 mg PO TID PRN #15 tablet PRN Reason: Muscle Spasm Omeprazole [PriLOSEC] 20 mg PO AC-BRKFST #14 cap Ketorolac [Toradol] 10 mg PO Q8HR #15 tab Is patient prescribed a controlled substance at d/c from ED?: No Referrals: Marie Washington MD [Primary Care Provider] - 1-2 days Time of Disposition: 12:07
[2019-06-27 12:16] VITALS: BP 122/71; PULSE 66; RESP 19
== END 2019-06-27 12:16 | disposition home or self-care (01) ==
LOC: EC 09:03
DX: R10.9 Unspecified abdominal pain (principal); R06.02 Shortness of breath; R11.0 Nausea; F17.200 Nicotine dependence, unspecified, uncomplicated; E66.01 Morbid (severe) obesity due to excess calories; Z68.42 Body mass index [BMI] 45.0-49.9, adult; Z86.14 Personal history of Methicillin resistant Staphylococcus aureus infection; Z87.11 Personal history of peptic ulcer disease; Z90.49 Acquired absence of other specified parts of digestive tract; Z95.818 Presence of other cardiac implants and grafts; Z87.442 Personal history of urinary calculi; Z98.890 Other specified postprocedural states; Z79.899 Other long term (current) drug therapy; Z91.041 Radiographic dye allergy status; Z88.8 Allergy status to other drugs, medicaments and biological substances; Z88.1 Allergy status to other antibiotic agents
CPT/HCPCS: 99284; 96374; 96375; 96361; 36415; 93005; 80053; 82150; 83690; 84484; 85025; 81001; 81025; 71046; 74018; 74176; J2405; J1885

== ENCOUNTER 2021-04-08 11:29 | Emergency (ER) | payer OTHER ==
[2021-04-08 11:47] VITALS: RESP 18; TEMP 98.4
[2021-04-08] MEDS ORDERED: SODIUM CHLORIDE 0.9% 1,000 ML IV STA (12:24)
[2021-04-08] MEDS ORDERED: KETOROLAC 15 MG/ML 1 ML VIAL IVP STA (12:24)
[2021-04-08] MEDS ORDERED: ONDANSETRON 4 MG/2 ML VIAL IVP STA (12:24)
[2021-04-08] MEDS ORDERED: diphenhydrAMINE 50 MG/ML 1 ML VIAL IVP STA (12:35)
[2021-04-08] MEDS ORDERED: FAMOTIDINE 20 MG/2 ML VIAL IV STA (12:35)
[2021-04-08] MEDS ORDERED: methylPREDNISolone SOD SUCCI 125 MG/2 ML VIAL IV STA (12:35)
[2021-04-08 12:42] LABS: Appearance,Urine Clear (Clear); Bilirubin,Urine Negative (Negative); Blood,Urine Negative (Negative); Color,Urine Light Yellow; Glucose,Urine (UA) Negative (Negative); Ketones,Urine Negative (Negative); Leukocyte Esterase,Urine Negative (Negative); Nitrite,Urine Negative (Negative); Protein,Urine Negative (Negative); Specific Gravity,Urine 1.012 (1.001-1.035); Urobilinogen,Urine <2.0 mg/dL (<2.0)
[2021-04-08 12:43] LABS: Basophils # (A) 0.1 k/uL (0-0.2); Basophils % (A) 1 %; Eosinophils # (A) 0.2 k/uL (0-0.7); Eosinophils % (A) 3 %; HCT 41.3 % (34.0-46.0); HGB 13.5 gm/dL (11.4-16.0); Lymphocytes # (A) 2.2 k/uL (1.0-4.8); Lymphocytes % (A) 32 %; MCH 30.2 pg (25.0-35.0); MCHC 32.7 g/dL (31.0-37.0); MCV 92.4 fL (80.0-100.0); Mean Platelet Volume 8.1; Monocytes # (A) 0.3 k/uL (0-1.0); Monocytes % (A) 4 %; Neutrophils % (A) 58 %; Platelet Count 200 k/uL (150-450); RBC 4.47 m/uL (3.80-5.40); RDW 13.3 % (11.5-15.5); WBC 6.8 k/uL (3.8-10.6)
[2021-04-08 13:00] LABS: ALT 19 U/L (4-34); AST 21 U/L (14-36); African American GFR (CKD) >90 (>60 ml/min/1.73 sqM); Albumin 4.2 g/dL (3.5-5.0); Alkaline Phosphatase 54 U/L (38-126); Anion Gap 10 mmol/L; Blood Urea Nitrogen 18 mg/dL (7-17); Calcium 9.3 mg/dL (8.4-10.2); Carbon Dioxide 24 mmol/L (22-30); Chloride 105 mmol/L (98-107); Glucose 72 mg/dL (74-99); Lipase 101 U/L (23-300); Non-African American GFR(CKD) >90 (>60 ml/min/1.73 sqM); Potassium 3.8 mmol/L (3.5-5.1); Sodium 139 mmol/L (137-145); Total Bilirubin 0.6 mg/dL (0.2-1.3); Total Protein 7.5 g/dL (6.3-8.2)
--- NOTE | 2021-04-08 13:37 | ED ---
Abdominal Pain HPI - General Chief Complaint: Abdominal Pain Stated Complaint: abd pain Time Seen by Provider: 04/08/21 11:40 Source: patient Mode of arrival: ambulatory Limitations: no limitations - History of Present Illness Initial Comments: Patient is a 36-year-old female presenting to the emergency Department with complaints of right lower quadrant pain meds been increasing over the past 3 days. She states the pain started around her belly button and, bladder area and has progressed and moved over to the right lower quadrant. She states the pain has been intensifying, currently rates it a 7/10 when she is laying and resting. She states the pain increases when she stands up or moves around. She does have a history of gastric bypass, no other abdominal surgeries. GI, no vomiting or diarrhea. She's been having irregular bowel movements but that is normal for her secondary to the gastric bypass. She denies any chest pain or shortness of breath. No fevers. She states she does have a history of ovarian cysts but this feels completely different. She has no further complaints at this time. She states she is not secondary to IUD. - Related Data Home Medications Medication Instructions Recorded Confirmed Cholecalciferol [Vitamin D3 (25 25 mcg PO DAILY 04/08/21 04/08/21 Mcg = 1000 Iu)] Famotidine [Pepcid] 20 mg PO BID 04/08/21 04/08/21 Ferrous Sulfate [Feosol] 325 mg PO DAILY 04/08/21 04/08/21 L.acidoph,Paracasei, B.lactis 1 cap PO DAILY 04/08/21 04/08/21 [Probiotic] Multivitamins, Thera [Multivitamin 1 tab PO DAILY 04/08/21 04/08/21 (formulary)] Vitamin B Complex 1 cap PO DAILY 04/08/21 04/08/21 Allergies Allergy/AdvReac Type Severity Reaction Status Date / Time Iodinated Contrast Media Allergy Severe Anaphylaxis Verified 04/08/21 11:50 [Iodinated Contrast- Oral and IV Dye] hydrochlorothiazide Allergy Rash/Hives Verified 04/08/21 11:50 fluconazole [From Diflucan] AdvReac Severe Chest Pain Verified 04/08/21 11:50 atorvastatin [From Lipitor] AdvReac Intermediate Chest Pain Verified 04/08/21 11:50 Review of Systems ROS Statement: Those systems with pertinent positive or pertinent negative responses have been documented in the HPI. ROS Other: All systems not noted in ROS Statement are negative. Past Medical History Past Medical History: Renal Disease Additional Past Medical History / Comment(s): Migraines, sinus problems, peptic ulcer H.pylori (positive), history of upper GI bleed, morbid obesity, blocked bilateral carotid arteries "one is 50% blocked/ the other 70%" per patient on 05/20/18, achalasia History of Any Multi-Drug Resistant Organisms: MRSA Date of last positivie culture/infection: 2015 MDRO Source:: GROIN Past Surgical History: Section, Cholecystectomy, Heart Catheterization Additional Past Surgical History / Comment(s): Lithotripsy for kidney stone removal, heart catheterization in February at [facility] (on ) endoscopy Past Anesthesia/Blood Transfusion Reactions: No Reported Reaction Past Psychological History: No Psychological Hx Reported Past Alcohol Use History: None Reported Past Drug Use History: None Reported - Past Family History Father Family Medical History: Coronary Artery Disease (CAD), Myocardial Infarction ([place]) Additional Family Medical History / Comment(s): Father had a [place] at the age of 60yrs. Mother Family Medical History: Diabetes Mellitus, Hypertension, Osteoarthritis (OA) General Exam - General Exam Comments Initial Comments: GENERAL: Patient is well-developed and well-nourished. Patient is nontoxic and in mild distress. HEAD: Atraumatic, normocephalic. EYES: Pupils equal round and reactive to light, extraocular movements intact, sclera anicteric, conjunctiva are normal. Eyelids were unremarkable. ENT: TMs normal, nares patent, oropharynx clear without exudates. Moist mucous membranes. NECK: Normal range of motion, supple without lymphadenopathy or JVD. LUNGS: Unlabored respirations. Breath sounds clear to auscultation bilaterally and equal. No wheezes rales or rhonchi. HEART: Regular rate and rhythm without murmurs, rubs or gallops. ABDOMEN: Soft, tender to palpation of the entire lower abdomen, positive radiation to the right lower quadrant when pressed on the left side. Definitely increased tenderness of the right lower quadrant., normoactive bowel sounds. No masses vic reciated. : Deferred MUSCULOSKELETAL: Normal extremities with adequate strength and normal range of motion, no pitting or edema. No clubbing or cyanosis. NEUROLOGICAL: Patient is alert and oriented x 3. Motor and sensory are also intact. Cranial nerves II through XII grossly intact. Symmetrical smile. Normal speech, normal gait. PSYCH: Normal mood, normal affect. SKIN: Warm, Dry, normal turgor, no rashes or lesions noted. Limitations: no limitations Course Vital Signs 04/08/21 04/08/21 11:36 14:34 Temperature 98.4 F Pulse Rate 72 61 Respiratory 18 18 Rate Blood Pressure 118/71 112/71 O2 Sat by Pulse 100 100 Oximetry Medical Decision Making - Medical Decision Making Patient is a 36-year-old female here with right lower quadrant pain increasing for the past 3 days. She has a history of gastric bypass, does have issues with constipation, gas pains. Her vital signs are stable. Her labs are unremarkable, normal white count, normal lactic acid. Urine shows evidence of infection, she is not . Computed tomography scan of the abdomen shows no acute inflammatory process in the right lower quadrant, the appendix is poorly visualized. Patient did receive some fluids and Toradol, reports improve ment in her symptoms. Discussed these findings with her. I gave her strict return parameters, she does have a lot of gas buildup as well. She will trial Gas-X at home. She is in agreement with this plan of care. She stable for discharge. Case discussed with Dr. Little. - Lab Data Result diagrams: 04/08/21 12:25 04/08/21 12:25 Lab Results 04/08/21 04/08/21 04/08/21 Range/Units 12:25 12:25 12:25 WBC 6.8 (3.8-10.6) k/uL RBC 4.47 (3.80-5.40) m/uL Hgb 13.5 (11.4-16.0) gm/dL Hct 41.3 (34.0-46.0) % MCV 92.4 (80.0-100.0) fL MCH 30.2 (25.0-35.0) pg MCHC 32.7 (31.0-37.0) g/dL RDW 13.3 (11.5-15.5) % Plt Count 200 (150-450) k/uL MPV 8.1 Neutrophils % 58 % Lymphocytes % 32 % Monocytes % 4 % Eosinophils % 3 % Basophils % 1 % Neutrophils # 4.0 (1.3-7.7) k/uL Lymphocytes # 2.2 (1.0-4.8) k/uL Monocytes # 0.3 (0-1.0) k/uL Eosinophils # 0.2 (0-0.7) k/uL Basophils # 0.1 (0-0.2) k/uL Sodium (137-145) mmol/L Potassium (3.5-5.1) mmol/L Chloride (98-107) mmol/L Carbon Dioxide (22-30) mmol/L Anion Gap mmol/L BUN (7-17) mg/dL Creatinine (0.52-1.04) mg/dL Est GFR (CKD-EPI)AfAm (>60 ml/min/1.73 sqM) Est GFR (CKD-EPI)NonAf (>60 ml/min/1.73 sqM) Glucose (74-99) mg/dL Plasma Lactic Acid Benjamín (0.7-2.0) mmol/L Calcium (8.4-10.2) mg/dL Total Bilirubin (0.2-1.3) mg/dL AST (14-36) U/L ALT (4-34) U/L Alkaline Phosphatase (38-126) U/L Total Protein (6.3-8.2) g/dL Albumin (3.5-5.0) g/dL Lipase (23-300) U/L Urine Color Light Yellow Urine Appearance Clear (Clear) Urine pH 6.0 (5.0-8.0) Ur Specific Hopkins 1.012 (1.001-1.035) Urine Protein Negative (Negative) Urine Glucose (UA) Negative (Negative) Urine Ketones Negative (Negative) Urine Blood Negative (Negative) Urine Nitrite Negative (Negative) Urine Bilirubin Negative (Negative) Urine Urobilinogen <2.0 (<2.0) mg/dL Ur Leukocyte Esterase Negative (Negative) Urine HCG, Qual Not Detected (Not Detectd) 04/08/21 04/08/21 Range/Units 12:25 12:25 WBC (3.8-10.6) k/uL RBC (3.80-5.40) m/uL Hgb (11.4-16.0) gm/dL Hct (34.0-46.0) % MCV (80.0-100.0) fL MCH (25.0-35.0) pg MCHC (31.0-37.0) g/dL RDW (11.5-15.5) % Plt Count (150-450) k/uL MPV Neutrophils % % Lymphocytes % % Monocytes % % Eosinophils % % Basophils % % Neutrophils # (1.3-7.7) k/uL Lymphocytes # (1.0-4.8) k/uL Monocytes # (0-1.0) k/uL Eosinophils # (0-0.7) k/uL Basophils # (0-0.2) k/uL Sodium 139 (137-145) mmol/L Potassium 3.8 (3.5-5.1) mmol/L Chloride 105 (98-107) mmol/L Carbon Dioxide 24 (22-30) mmol/L Anion Gap 10 mmol/L BUN 18 H (7-17) mg/dL Creatinine 0.65 (0.52-1.04) mg/dL Est GFR (CKD-EPI)AfAm >90 (>60 ml/min/1.73 sqM) Est GFR (CKD-EPI)NonAf >90 (>60 ml/min/1.73 sqM) Glucose 72 L (74-99) mg/dL Plasma Lactic Acid Benjamín 1.0 (0.7-2.0) mmol/L Calcium 9.3 (8.4-10.2) mg/dL Total Bilirubin 0.6 (0.2-1.3) mg/dL AST 21 (14-36) U/L ALT 19 (4-34) U/L Alkaline Phosphatase 54 (38-126) U/L Total Protein 7.5 (6.3-8.2) g/dL Albumin 4.2 (3.5-5.0) g/dL Lipase 101 (23-300) U/L Urine Color Urine Appearance (Clear) Urine pH (5.0-8.0) Ur Specific Hopkins (1.001-1.035) Urine Protein (Negative) Urine Glucose (UA) (Negative) Urine Ketones (Negative) Urine Blood (Negative) Urine Nitrite (Negative) Urine Bilirubin (Negative) Urine Urobilinogen (<2.0) mg/dL Ur Leukocyte Esterase (Negative) Urine HCG, Qual (Not Detectd) Disposition Clinical Impression: Abdominal pain Disposition: HOME SELF-CARE Condition: Stable Instructions (If sedation given, give patient instructions): Abdominal Pain (ED) Additional Instructions: Please return to the Emergency Department if symptoms worsen or any other concerns. Recommend increasing fluid intake, trial of Gas-X. Follow-up with your PCP. Is patient prescribed a controlled substance at d/c from ED?: No Referrals: Becky Howell MD [Primary Care Provider] - 1-2 days Time of Disposition: 14:22
--- NOTE | 2021-04-08 13:38 | CT ---
EXAMINATION TYPE: CT abdomen pelvis w con DATE OF EXAM: 04/08/2021 COMPARISON: June 27, 2019 HISTORY: RLQ and periumbilical pain CT DLP: 857.8 mGycm CONTRAST: CT scan of the abdomen and pelvis is performed without Oral Contrast and with IV Contrast, patient in jected with 100 mL of Isovue 300. FINDINGS: LUNG BASES-: No visible nodule. No infiltrate. LIVER/GB: The gallbladder is surgically absent. No space occupying hepatic lesion. Biliary tree is of normal caliber. PANCREAS: No inflammation. No distinct mass. SPLEEN: No splenic enlargement. No lesion seen. ADRENALS: No nodule. No thickening. KIDNEYS/BLADDER: No hydronephrosis. No nephrolithiasis. No distinct renal mass. Urinary bladder g rossly unremarkable. BOWEL: Poor visualization of the appendix. No definite inflammatory process right lower quadrant cotton michael exclusion of acute appendicitis should be made on a clinical basis. Normal bowel caliber. No inf lammation. Gastric sleeve changes noted. GENITAL ORGANS: IUD is in place. Small amount of free fluid seen within the cul-de-sac. LYMPH NODES: No greater than 1cm abdominal or pelvic lymph nodes are appreciated. AORTA: No significant abnormality. OSSEOUS STRUCTURES: No significant abnormality is seen. OTHER: No significant additional abnormality is seen. IMPRESSION: 1. Poor visualization of the appendix. No definite inflammatory process right lower quadrant however exclusion of acute appendicitis should be made on a clinical basis. 2. Small amount of free fluid within the cul-de-sac.
[2021-04-08 14:34] VITALS: BP 112/71; PULSE 61
== END 2021-04-08 14:35 | disposition home or self-care (01) ==
LOC: EC 11:29
DX: R10.31 Right lower quadrant pain (principal); K59.00 Constipation, unspecified; R14.1 Gas pain; E66.01 Morbid (severe) obesity due to excess calories; G43.909 Migraine, unspecified, not intractable, without status migrainosus; Z87.11 Personal history of peptic ulcer disease; Z98.84 Bariatric surgery status; Z68.24 Body mass index [BMI] 24.0-24.9, adult
CPT/HCPCS: 36415; 80053; 83605; 83690; 85025; 81003; 81025; 74177; 99284; 96374; 96375 ×4; 96361 ×2; J1200; J2930; J2405; J1885; Q9967

== ENCOUNTER 2022-01-29 08:54 | Emergency (ER) | payer OTHER ==
[2022-01-29 09:00] VITALS: RESP 18
[2022-01-29] MEDS ORDERED: LORazepam 2 MG/ML INJ IV STA (09:14)
[2022-01-29] MEDS ORDERED: MECLIZINE 12.5 MG TAB PO STA (09:14)
--- NOTE | 2022-01-29 09:18 | ED ---
General Adult HPI - General Chief complaint: Dizziness Stated complaint: dizziness, SOB Time Seen by Provider: 01/29/22 09:02 Source: patient, RN notes reviewed Mode of arrival: ambulatory Limitations: no limitations - History of Present Illness Initial comments: Patient is a pleasant 37-year-old female presenting to the emergency department with episodes of lightheadedness. Symptoms have been occurring over the past week and have been intermittent. Patient does get some associated blurred vision. Patient felt a little bit near syncopal today. Patient has also been feeling achy. This morning patient also follow-up with short of breath. - Related Data Home Medications Medication Instructions Recorded Confirmed Cholecalciferol [Vitamin D3 (25 25 mcg PO DAILY 04/08/21 04/08/21 Mcg = 1000 Iu)] Famotidine [Pepcid] 20 mg PO BID 04/08/21 04/08/21 Ferrous Sulfate [Feosol] 325 mg PO DAILY 04/08/21 04/08/21 L.acidoph,Paracasei, B.lactis 1 cap PO DAILY 04/08/21 04/08/21 [Probiotic] Multivitamins, Thera [Multivitamin 1 tab PO DAILY 04/08/21 04/08/21 (formulary)] Vitamin B Complex 1 cap PO DAILY 04/08/21 04/08/21 Allergies Allergy/AdvReac Type Severity Reaction Status Date / Time Iodinated Contrast Media Allergy Severe Anaphylaxis Verified 01/29/22 09:00 [Iodinated Contrast- Oral and IV Dye] hydrochlorothiazide Allergy Rash/Hives Verified 01/29/22 09:00 fluconazole [From Diflucan] AdvReac Severe Chest Pain Verified 01/29/22 09:00 atorvastatin [From Lipitor] AdvReac Intermediate Chest Pain Verified 01/29/22 09:00 Review of Systems ROS Statement: Those systems with pertinent positive or pertinent negative responses have been documented in the HPI. ROS Other: All systems not noted in ROS Statement are negative. Constitutional: Denies: fever Eyes: Denies: eye pain ENT: Denies: ear pain Respiratory: Reports: as per HPI. Denies: cough Cardiovascular: Denies: chest pain Endocrine: Denies: fatigue Gastrointestinal: Denies: abdominal pain Genitourinary: Denies: dysuria Musculoskeletal: Denies: back pain Skin: Denies: rash Neurological: Reports: as per HPI, headache (Patient has mild headache today). Denies: weakness, numbness, paresthesias, confusion Past Medical History Past Medical History: Renal Disease Additional Past Medical History / Comment(s): Migraines, sinus problems, peptic ulcer H.pylori (positive), history of upper GI bleed, morbid obesity, blocked bilateral carotid arteries "one is 50% blocked/ the other 70%" per patient on 05/20/18, achalasia History of Any Multi-Drug Resistant Organisms: MRSA Date of last positivie culture/infection: 2015 MDRO Source:: GROIN Past Surgical History: Section, Cholecystectomy, Heart Catheterization Additional Past Surgical History / Comment(s): Lithotripsy for kidney stone removal, heart catheterization in February at [facility] (on ) endoscopy Past Anesthesia/Blood Transfusion Reactions: No Reported Reaction Past Psychological History: No Psychological Hx Reported Smoking Status: Current every day smoker Past Alcohol Use History: None Reported Past Drug Use History: None Reported - Past Family History Father Family Medical History: Coronary Artery Disease (CAD), Myocardial Infarction ([place]) Additional Family Medical History / Comment(s): Father had a [place] at the age of 60yrs. Mother Family Medical History: Diabetes Mellitus, Hypertension, Osteoarthritis (OA) General Exam Limitations: no limitations General appearance: alert, in no apparent distress Head exam: Present: normocephalic Eye exam: Present: normal appearance, PERRL, EOMI ENT exam: Present: normal oropharynx Neck exam: Present: normal inspection Respiratory exam: Present: normal lung sounds bilaterally. Absent: respiratory distress, wheezes Cardiovascular Exam: Present: regular rate, normal rhythm GI/Abdominal exam: Present: soft. Absent: tenderness Extremities exam: Present: normal inspection. Absent: pedal edema, calf tenderness Neurological exam: Present: alert, CN II-XII intact. Absent: motor sensory deficit Expanded Neurological exam: Present: protecting the airway. Absent: ataxia Speech: Present: fluid speech Cranial nerves: EOM's Intact: Normal Cerebellar function: Romberg: Normal Sensory exam: Upper Extremity Light Touch: Normal, Lower Extremity Light Touch: Normal Motor strength exam: RUE: 5, LUE: 5, RLE: 5, LLE: 5 Eye Response: (4) open spontaneously Motor Response: (6) obeys commands Verbal Response: (5) oriented Psychiatric exam: Present: normal affect, normal mood Skin exam: Present: normal color Course Vital Signs 01/29/22 08:58 Temperature 97.6 F Pulse Rate 91 Respiratory 18 Rate Blood Pressure 121/77 O2 Sat by Pulse 99 Oximetry EKG Findings - EKG Comments: EKG Findings:: Sinus bradycardia with rate of 56. AK 141. QRS 99. QT 393. QTC 384. Normal axis. Normal QRS. No acute ST change. Medical Decision Making - Medical Decision Making Patient reevaluated and resting comfortably in bed. Patient is feeling improved. Patient updated on results and need for follow-up. Patient has an appointment Sunday and agreeable to keep this. - Lab Data Result diagrams: 01/29/22 09:37 01/29/22 09:37 Lab Results 01/29/22 01/29/22 01/29/22 Range/Units 09:14 09:37 09:37 WBC 8.5 (3.8-10.6) k/uL RBC 4.45 (3.80-5.40) m/uL Hgb 14.4 (11.4-16.0) gm/dL Hct 42.5 (34.0-46.0) % MCV 95.6 (80.0-100.0) fL MCH 32.5 (25.0-35.0) pg MCHC 34.0 (31.0-37.0) g/dL RDW 13.2 (11.5-15.5) % Plt Count 221 (150-450) k/uL MPV 8.6 Neutrophils % 59 % Lymphocytes % 31 % Monocytes % 5 % Eosinophils % 3 % Basophils % 1 % Neutrophils # 5.0 (1.3-7.7) k/uL Lymphocytes # 2.6 (1.0-4.8) k/uL Monocytes # 0.4 (0-1.0) k/uL Eosinophils # 0.3 (0-0.7) k/uL Basophils # 0.1 (0-0.2) k/uL PT 10.6 (9.0-12.0) sec INR 1.0 (<1.2) APTT 24.0 (22.0-30.0) sec D-Dimer 0.47 (<0.60) mg/L FEU Sodium (137-145) mmol/L Potassium (3.5-5.1) mmol/L Chloride (98-107) mmol/L Carbon Dioxide (22-30) mmol/L Anion Gap mmol/L BUN (7-17) mg/dL Creatinine (0.52-1.04) mg/dL Est GFR (CKD-EPI)AfAm (>60 ml/min/1.73 sqM) Est GFR (CKD-EPI)NonAf (>60 ml/min/1.73 sqM) Glucose (74-99) mg/dL Calcium (8.4-10.2) mg/dL Total Bilirubin (0.2-1.3) mg/dL AST (14-36) U/L ALT (4-34) U/L Alkaline Phosphatase (38-126) U/L Total Protein (6.3-8.2) g/dL Albumin (3.5-5.0) g/dL Coronavirus (PCR) Not Detected (Not Detectd) 01/29/22 Range/Units 09:37 WBC (3.8-10.6) k/uL RBC (3.80-5.40) m/uL Hgb (11.4-16.0) gm/dL Hct (34.0-46.0) % MCV (80.0-100.0) fL MCH (25.0-35.0) pg MCHC (31.0-37.0) g/dL RDW (11.5-15.5) % Plt Count (150-450) k/uL MPV Neutrophils % % Lymphocytes % % Monocytes % % Eosinophils % % Basophils % % Neutrophils # (1.3-7.7) k/uL Lymphocytes # (1.0-4.8) k/uL Monocytes # (0-1.0) k/uL Eosinophils # (0-0.7) k/uL Basophils # (0-0.2) k/uL PT (9.0-12.0) sec INR (<1.2) APTT (22.0-30.0) sec D-Dimer (<0.60) mg/L FEU Sodium 139 (137-145) mmol/L Potassium 4.4 (3.5-5.1) mmol/L Chloride 109 H (98-107) mmol/L Carbon Dioxide 23 (22-30) mmol/L Anion Gap 7 mmol/L BUN 17 (7-17) mg/dL Creatinine 0.59 (0.52-1.04) mg/dL Est GFR (CKD-EPI)AfAm >90 (>60 ml/min/1.73 sqM) Est GFR (CKD-EPI)NonAf >90 (>60 ml/min/1.73 sqM) Glucose 78 (74-99) mg/dL Calcium 9.2 (8.4-10.2) mg/dL Total Bilirubin 1.0 (0.2-1.3) mg/dL AST 26 (14-36) U/L ALT 15 (4-34) U/L Alkaline Phosphatase 46 (38-126) U/L Total Protein 8.3 H (6.3-8.2) g/dL Albumin 4.4 (3.5-5.0) g/dL Coronavirus (PCR) (Not Detectd) - Radiology Data Radiology results: report reviewed (Computed tomography scan the brain reveals no acute process), image reviewed (Chest x-ray shows no acute process) Disposition Clinical Impression: Lightheadedness Disposition: HOME SELF-CARE Condition: Stable Instructions (If sedation given, give patient instructions): Dizziness (ED) Additional Instructions: Please follow-up with your doctor Sunday as planned. Please also follow-up with ENT in the next day or 2. Return for weakness, difficulty walking, pain, worsening or changing symptoms or any other concerns. Is patient prescribed a controlled substance at d/c from ED?: No Referrals: Becky Howell MD [Primary Care Provider] - 1-2 days Tommie Nguyen MD [STAFF PHYSICIAN] - 1-2 days Time of Disposition: 10:34
[2022-01-29 09:53] LABS: Basophils # (A) 0.1 k/uL (0-0.2); Basophils % (A) 1 %; Eosinophils # (A) 0.3 k/uL (0-0.7); Eosinophils % (A) 3 %; HCT 42.5 % (34.0-46.0); HGB 14.4 gm/dL (11.4-16.0); Lymphocytes # (A) 2.6 k/uL (1.0-4.8); Lymphocytes % (A) 31 %; MCH 32.5 pg (25.0-35.0); MCV 95.6 fL (80.0-100.0); Mean Platelet Volume 8.6; Monocytes # (A) 0.4 k/uL (0-1.0); Monocytes % (A) 5 %; Neutrophils % (A) 59 %; Platelet Count 221 k/uL (150-450); RBC 4.45 m/uL (3.80-5.40); RDW 13.2 % (11.5-15.5); WBC 8.5 k/uL (3.8-10.6)
--- NOTE | 2022-01-29 09:53 | CT ---
EXAMINATION TYPE: CT brain wo con DATE OF EXAM: 01/29/2022 COMPARISON: 02/15/2018 HISTORY: Near syncope. Experiences Dizziness when mensurating. CT DLP: 1099.[address] of the brain was performed. The ventricles, basal cisterns and sulci overlying the cerebral convexities demonstrate a normal appe arance. There is no evidence for intracranial hemorrhage or sulcal effacement. No mass effects are seen. Osseous calvarium is intact. If symptoms persist consider MRI as clinically warranted. IMPRESSION: 1. No acute intracranial process is seen at this time.
--- NOTE | 2022-01-29 09:53 | XR ---
EXAMINATION TYPE: XR chest 2V DATE OF EXAM: 01/29/2022 COMPARISON: 06/27/2019 HISTORY: Chest pain TECHNIQUE: Frontal and lateral views of the chest are obtained. FINDINGS: There is no focal air space opacity. No evidence for pneumothorax. No pleural effusion. The cardiac silhouette size is within normal limits. The osseous structures are grossly intact. IMPRESSION: 1. No acute cardiopulmonary process.
[2022-01-29 10:05] LABS: ALT 15 U/L (4-34); African American GFR (CKD) >90 (>60 ml/min/1.73 sqM); Anion Gap 7 mmol/L; Blood Urea Nitrogen 17 mg/dL (7-17); Calcium 9.2 mg/dL (8.4-10.2); Carbon Dioxide 23 mmol/L (22-30); Chloride 109 mmol/L (98-107); Glucose 78 mg/dL (74-99); Non-African American GFR(CKD) >90 (>60 ml/min/1.73 sqM); Sodium 139 mmol/L (137-145)
[2022-01-29 10:07] LABS: Prothrombin Time 10.6 sec (9.0-12.0)
[2022-01-29 10:16] LABS: AST 26 U/L (14-36); Albumin 4.4 g/dL (3.5-5.0); Alkaline Phosphatase 46 U/L (38-126); Potassium 4.4 mmol/L (3.5-5.1); Total Protein 8.3 g/dL (6.3-8.2)
[2022-01-29] MEDS ORDERED: SCOPOLAMINE 1.5MG/72HR PATCH TRANSDERM STA (10:40)
[2022-01-29 10:57] VITALS: BP 119/89; PULSE 67; TEMP 98.1
== END 2022-01-29 10:59 | disposition home or self-care (01) ==
LOC: EC 08:54
DX: R42 Dizziness and giddiness (principal); Z20.822 Contact with and (suspected) exposure to COVID-19; F17.200 Nicotine dependence, unspecified, uncomplicated
CPT/HCPCS: 36415; 93005; 85379; 80053; 85025; 85610; 85730; 87635; 71046; 70450; 99284; 96374; J2060

== ENCOUNTER 2022-04-29 14:43 | Emergency (ER) | payer OTHER ==
[2022-04-29 15:03] VITALS: BP 122/78; PULSE 88; RESP 20; TEMP 98.3
--- NOTE | 2022-04-29 17:05 | ED ---
Skin/Abscess/FB HPI - General Chief complaint: Skin/Abscess/Foreign Body Stated complaint: Abscess Time Seen by Provider: 04/29/22 15:15 Source: patient Mode of arrival: ambulatory Limitations: no limitations - History of Present Illness Initial comments: Patient is a 37-year-old female presenting with chief complaint of abscess to the labia. Patient states that she has been dealing with this abscess for several weeks, last week she had it lanced and drained and was placed on clindamycin. Today she states that while it is still improving, she feels a lot of pressure and is hoping to have it drained again. Patient has been using a warm compress to the area which has been somewhat helpful. She's been taking Motrin and Tylenol for pain control as needed. She denies any fever, chills, nausea, vomiting, vaginal discharge, pelvic cramping, redness, increased swelling, warmth. - Related Data Home Medications Medication Instructions Recorded Confirmed Cholecalciferol [Vitamin D3 (25 25 mcg PO DAILY 04/08/21 04/08/21 Mcg = 1000 Iu)] Famotidine [Pepcid] 20 mg PO BID 04/08/21 04/08/21 Ferrous Sulfate [Feosol] 325 mg PO DAILY 04/08/21 04/08/21 L.acidoph,Paracasei, B.lactis 1 cap PO DAILY 04/08/21 04/08/21 [Probiotic] Multivitamins, Thera [Multivitamin 1 tab PO DAILY 04/08/21 04/08/21 (formulary)] Vitamin B Complex 1 cap PO DAILY 04/08/21 04/08/21 Allergies Allergy/AdvReac Type Severity Reaction Status Date / Time Iodinated Contrast Media Allergy Severe Anaphylaxis Verified 04/29/22 15:03 [Iodinated Contrast- Oral and IV Dye] hydrochlorothiazide Allergy Rash/Hives Verified 04/29/22 15:03 fluconazole [From Diflucan] AdvReac Severe Chest Pain Verified 04/29/22 15:03 atorvastatin [From Lipitor] AdvReac Intermediate Chest Pain Verified 04/29/22 15:03 Review of Systems ROS Statement: Those systems with pertinent positive or pertinent negative responses have been documented in the HPI. ROS Other: All systems not noted in ROS Statement are negative. Past Medical History Past Medical History: Renal Disease Additional Past Medical History / Comment(s): Migraines, sinus problems, peptic ulcer H.pylori (positive), history of upper GI bleed, morbid obesity, blocked bilateral carotid arteries "one is 50% blocked/ the other 70%" per patient on 05/20/18, achalasia History of Any Multi-Drug Resistant Organisms: MRSA Date of last positivie culture/infection: 2015 MDRO Source:: GROIN Past Surgical History: Section, Cholecystectomy, Heart Catheterization Additional Past Surgical History / Comment(s): Lithotripsy for kidney stone removal, heart catheterization in February at [facility] (on ) endoscopy Past Anesthesia/Blood Transfusion Reactions: No Reported Reaction Past Psychological History: No Psychological Hx Reported Smoking Status: Current every day smoker Past Alcohol Use History: None Reported Past Drug Use History: None Reported - Past Family History Father Family Medical History: Coronary Artery Disease (CAD), Myocardial Infarction ([place]) Additional Family Medical History / Comment(s): Father had a [place] at the age of 60yrs. Mother Family Medical History: Diabetes Mellitus, Hypertension, Osteoarthritis (OA) General Exam Limitations: no limitations General appearance: alert, in no apparent distress Head exam: Present: atraumatic, normocephalic, normal inspection Eye exam: Present: normal appearance, EOMI. Absent: scleral icterus Neck exam: Present: normal inspection External exam: Present: other (Small 1 cm x 1 cm indurated abscess to the right labia) Neurological exam: Present: alert, oriented X3, CN II-XII intact Psychiatric exam: Present: normal affect, normal mood Skin exam: Present: warm, dry, intact, normal color. Absent: rash Course Vital Signs 04/29/22 15:00 Temperature 98.3 F Pulse Rate 88 Respiratory 20 Rate Blood Pressure 122/78 O2 Sat by Pulse 100 Oximetry Medical Decision Making - Medical Decision Making Patient is a 37-year-old female presenting with abscess to the right labia. Patient is currently on clindamycin after having it drained at a different facility. She states that there is still pressure causing her discomfort. She has been using compresses which has been somewhat helpful. On examination there is a small 1 cm x 1 cm indurated abscess to the right labia. There is a small area of fluctuance where an incision may be attempted. I attempted to drain this area, no pus was expressed. I explained to the patient that the abscess cannot be drained at this time. Continue the use of her prescribed antibiotics. Follow-up with PCP/OBGYN. Report back to ER if any new or worsening symptoms. I discussed return parameters alarm symptoms. Answered all questions. Patient conveyed verbal understanding and agreed to the plan. My attending is Dr. Rm. Disposition Clinical Impression: Abscess Disposition: HOME SELF-CARE Condition: Good Instructions (If sedation given, give patient instructions): Abscess (ED) Additional Instructions: Continue taking medication and doing supportive treatment as you have been. Follow-up with PCP this week. Report back to ER if any worsening symptoms. Is patient prescribed a controlled substance at d/c from ED?: No Referrals: Becky Howell MD [Primary Care Provider] - 1-2 days Time of Disposition: 17:05
== END 2022-04-29 17:10 | disposition home or self-care (01) ==
LOC: EC 14:43
DX: N76.4 Abscess of vulva (principal); E66.01 Morbid (severe) obesity due to excess calories; F17.200 Nicotine dependence, unspecified, uncomplicated; Z88.3 Allergy status to other anti-infective agents; Z88.8 Allergy status to other drugs, medicaments and biological substances; Z68.25 Body mass index [BMI] 25.0-25.9, adult
CPT/HCPCS: 99282

== ENCOUNTER → 2022-08-23 | Outpatient (CLI) | payer OTHER ==
[2022-08-23 18:18] LABS: INR 1.1 (<1.2); Prothrombin Time 11.4 sec (9.0-12.0)
[2022-08-23 22:42] LABS: Basophils # (A) 0.04 X 10*3/uL (0.00-0.10); Basophils % (A) 0.4 %; Eosinophils # (A) 0.23 X 10*3/uL (0.04-0.35); Eosinophils % (A) 2.5 %; HCT 39.2 % (37.2-46.3); Immature Grans, Automated 0.3 %; Lymphocytes # (A) 2.86 X 10*3/uL (0.90-5.00); Lymphocytes % (A) 31.1 %; MCH 30.7 pg (27.0-32.0); MCHC 33.2 g/dL (32.0-37.0); MCV 92.7 fL (80.0-97.0); Mean Platelet Volume 11.3 fL (9.5-12.2); Monocytes # (A) 0.53 X 10*3/uL (0.20-1.00); Monocytes % (A) 5.8 %; NRBC Per 100 WBC 0 /100 WBCS (0.0-0.0); Neutrophils # (A) 5.52 X 10*3/uL (1.80-7.70); Neutrophils % (A) 59.9 %; Platelet Count 218 X 10*3/uL (140-440); RBC 4.23 X 10*6/uL (4.10-5.20); RDW 13.2 % (11.5-14.5); WBC 9.21 X 10*3/uL (4.50-10.00)
[2022-08-24 02:34] LABS: % Iron Saturation 25.33 (12.00-45.00); ALT 15 U/L (8-44); AST 20 U/L (13-35); Albumin 4.1 g/dL (3.8-4.9); Albumin/Globulin Ratio 1.46 (1.60-3.17); Alkaline Phosphatase 52 U/L (41-126); BUN/Creat Ratio 22.29 Ratio (12.00-20.00); Calcium 9.1 mg/dL (8.7-10.3); Carbon Dioxide 25.1 mmol/L (20.0-27.5); Chloride 103 mmol/L (96-109); Globulin 2.8 g/dL (1.6-3.3); Glucose 73 mg/dL (70-110); Iron 73 ug/dL (50-170); Magnesium 2.1 mg/dL (1.5-2.4); Non-African American GFR(CKD) 112.1 (60.0-200.0); Phosphorus 3.1 mg/dL (2.4-5.1); Potassium 3.5 mmol/L (3.5-5.5); Sodium 138 mmol/L (135-145); Total Iron Binding Capacity 290 ug/dL (228-460); Total Protein 6.9 g/dL (6.2-8.2)
[2022-08-24 02:52] LABS: Chol/HDL Ratio 2.93 Ratio; LDL Cholesterol,Calculated 79.2 mg/dL (0.0-131.0); VLDL Calculation 16.28 mg/dL (5.00-40.00)
[2022-08-24 11:49] LABS: Zinc, Serum 78 ug/dL (60-130)
[2022-08-25 06:12] LABS: Vitamin A 37 ug/dL (38-106)
[2022-08-25 09:39] LABS: Vit B1(Thiamine) 89 ug/L (38-122)
[2022-08-28 01:18] LABS: Selenium 118 mcg/L (63-160)
== END | disposition home or self-care (01) ==
LOC: LABWHC1 16:00
PROVIDERS: ATTEND Surgery Plastic and Reconstructive Surgery
DX: E66.01 Morbid (severe) obesity due to excess calories (principal); D50.8 Other iron deficiency anemias; K91.2 Postsurgical malabsorption, not elsewhere classified; E44.0 Moderate protein-calorie malnutrition; K74.1 Hepatic sclerosis; N19 Unspecified kidney failure; T56.894A Toxic effect of other metals, undetermined, initial encounter; E89.1 Postprocedural hypoinsulinemia; E55.9 Vitamin D deficiency, unspecified; K50.90 Crohn's disease, unspecified, without complications
CPT/HCPCS: 84255; 84134; 84425; 80061; 80053; 82607; 82728; 82525; 82746; 83540; 83550; 83735; 84100; 84443; 84590; 84630; 85025; 85610; 85730; 82306; 83970; 83036; 80307; 93005; 36415; G0482

== ENCOUNTER 2023-06-05 09:16 | Emergency (ER) | payer OTHER ==
--- NOTE | 2023-06-05 09:47 | ED ---
General Adult HPI - General Chief complaint: Shortness of Breath Stated complaint: arm pain,JENNI Time Seen by Provider: 06/05/23 09:27 Source: patient Mode of arrival: ambulatory Limitations: no limitations - History of Present Illness Initial comments: Dictation was produced using [employer] dictation software. please excuse any grammatical, word or spelling errors. Chief Complaint: 38-year-old female past medical history of chronic back pain presents to the ER for shortness of breath History of Present Illness: This is a 30-year-old female she has no psychiatric past medical history. She was at physical therapy today when she was complaining of shortness of breath. She was told by her physical therapy staff to come to the ER for evaluation. She's been feeling symptomatic for the last 3-4 days. She has history of bariatric surgery. Denies any fever. No constitutional symptoms. Denies any history of blood clots. No lower extremity symptoms. No recent travel. The ROS documented in this emergency department record has been reviewed and confirmed by me. Those systems with pertinent positive or negative responses h ave been documented in the HPI. All other systems are other negative and/or noncontributory. - Related Data Home Medications Medication Instructions Recorded Confirmed Omeprazole 20 mg PO DAILY 08/16/22 06/05/23 Allergies Allergy/AdvReac Type Severity Reaction Status Date / Time Iodinated Contrast Media Allergy Severe Anaphylaxis Verified 06/05/23 11:27 [Iodinated Contrast- Oral and IV Dye] hydrochlorothiazide Allergy Rash/Hives Verified 06/05/23 11:27 fluconazole [From Diflucan] AdvReac Severe Chest Pain Verified 06/05/23 11:27 atorvastatin [From Lipitor] AdvReac Intermediate Chest Pain Verified 06/05/23 11:27 Review of Systems ROS Statement: Those systems with pertinent positive or pertinent negative responses have been documented in the HPI. ROS Other: All systems not noted in ROS Statement are negative. Past Medical History Past Medical History: GI Bleed, Renal Disease Additional Past Medical History / Comment(s): Migraines, sinus problems, peptic ulcer H.pylori (positive), history of upper GI bleed, morbid obesity, blocked bilateral carotid arteries "one is 50% blocked/ the other 70%" per patient on 05/20/18, achalasia, back pain History of Any Multi-Drug Resistant Organisms: None Reported, MRSA Date of last positivie culture/infection: 2016 MDRO Source:: GROIN Past Surgical History: Bariatric Surgery, Section, Cholecystectomy, Heart Catheterization Additional Past Surgical History / Comment(s): Lithotripsy for kidney stone removal, heart catheterization in February at [facility] (on ) en doscopy, gastric sleeve 2018 Past Anesthesia/Blood Transfusion Reactions: No Reported Reaction Past Psychological History: Anxiety Smoking Status: Current some day smoker Past Alcohol Use History: None Reported Past Drug Use History: None Reported - Past Family History Father Family Medical History: Coronary Artery Disease (CAD), Myocardial Infarction ([place]) Additional Family Medical History / Comment(s): Father had a [place] at the age of 60yrs. Mother Family Medical History: Diabetes Mellitus, Hypertension, Osteoarthritis (OA) General Exam - General Exam Comments Initial Comments: PHYSICAL EXAM: General Impression: Alert and oriented x3, not in acute distress HEENT: Normocephalic atraumatic, extra-ocular movements intact, pupils equal and reactive to light bilaterally, mucous membranes moist. Cardiovascular: Heart regular rate and rhythm Chest: Able to complete full sentences, no retractions, no tachypnea Abdomen: abdomen soft, non-tender, non-distended, no organomegaly Musculoskeletal: Pulses present and equal in all extremities, no peripheral edema Motor: no focal deficits noted Neurological: CN II-XII grossly intact, no focal motor or sensory deficits noted Skin: Intact with no visualized rashes Psych: Normal affect and mood Limitations: no limitations Course Vital Signs 06/05/23 06/05/23 09:23 11:23 Temperature 98.7 F Pulse Rate 70 67 Respiratory 16 18 Rate Blood Pressure 115/77 106/76 O2 Sat by Pulse 100 100 Oximetry Medical Decision Making - Medical Decision Making Was pt. sent in by a medical professional or institution (, PA, [employer]EE[employer], urgent care, hospital, or assisted...) When possible be specific @ -Symptoms per instructions by physical therapist Did you speak to anyone other than the patient for history (EMS, parent, family, police, friend...)? What history was obtained from this source @ -No Did you review nursing and triage notes (agree or disagree)? Why? @ -I reviewed and agree with nursing and triage notes Were old charts reviewed (outside hosp., previous admission, EMS record, old EKG, old radiological studies, urgent care reports/EKG's, assisted records)? Report findings @ -No old charts were reviewed Differential Diagnosis (chest pain, altered mental status, abdominal pain women, abdominal pain men, vaginal bleeding, musculoskeletal, weakness, fever, dyspnea, syncope, headache, dizziness, GI bleed, back pain, seizure, CVA, palpatations, mental health)? @ -Differential Dyspnea: Coronary syndrome, arrhythmia, tamponade, asthma, COPD, pulmonary embolism, pneumonia, pneumothorax, pulmonary effusion, anaphylaxis, diabetic ketoacidosis, flailed chest, pulmonary contusion, diaphragmatic rupture, anemia, neuromuscular, this is not meant to be an all-inclusive list. EKG interpreted by me (3pts min.). @ -My EKG interpretation: Ventricular rate 61, sinus rhythm,. 136, QRS 86, QTC 400. No RI prolongation, no QTC prolongation, no ST or T-wave changes noted. Overall, this EKG is unremarkable X-rays interpreted by me (1pt min.). @ -Chest x-ray shows no acute processes. CT interpreted by me (1pt min.). @ -None done U/S interpreted by me (1pt. min.). @ -None done What testing was considered but not performed or refused? (CT, X-rays, U/S, labs)? Why? @ -None What meds were considered but not given or refused? Why? @ -None Did you discuss the management of the patient with other professionals (professionals i.e. , PA, KEE[employer], lab, RT, psych nurse, social service agency director, linotype machinist apprentice, teacher, hearing officer, outpatient case manager)? Give summary @ -No Was smoking cessation discussed for >3mins.? @ -No Was critical care preformed (if so, how long)? @ -No Were there social determinants of health that impacted care today? How? (Home lessness, low income, unemployed, alcoholism, drug addiction, transportation, low edu. Level, literacy, decrease access to med. care, [facility], rehab)? @ -No Was there de-escalation of care discussed even if they declined (Discuss DNR or withdrawal of care, Hospice)? DNR status @ -No What co-morbidities impacted this encounter? (DM, HTN, Smoking, COPD, CAD, Cancer, CVA, ARF, Chemo, Hep., AIDS, mental health diagnosis, sleep apnea, morbid obesity)? @ -None Was patient admitted / discharged? Hospital course, mention meds given and route, prescriptions, significant lab abnormalities, going to OR and other pertinent info. @ -38-year-old female presents emergency department with dyspnea. Patient is well-appearing. Stable vital signs. Lung exam is unremarkable. She has a normal respiratory rate. No wheezing. Laboratory evaluation is unremarkable. D-dimer is negative. Troponins negative. Chest x-ray is nonacute. Patient reevaluated bedside at 12 AM on the basilar condition. Undiagnosed new problem with uncertain prognosis? @ -No Drug Therapy requiring intensive monitoring for toxicity (Heparin, Nitro, Insulin, Cardizem)? @ -No Were any procedures done? @ -No Diagnosis/symptom? Acute, or Chronic, or Acute on Chronic? Uncomplicated (without systemic symptoms) or Complicated (systemic symptoms)? @ -1. Dyspnea, no high-risk features Side effects of treatment? @ -No Exacerbation, Progression, or Severe Exacerbation? @ -No Poses a threat to life or bodily function? How? (Chest pain, [place], [place], pneumonia, PE, COPD, DKA, ARF, appy, cholecystitis, CVA, Diverticulitis, Homicidal, Suicidal, threat to staff... and all critical care pts) @ -No - Lab Data Result diagrams: 06/05/23 09:48 06/05/23 09:48 Lab Results 06/05/23 06/05/23 06/05/23 Range/Units 09:48 09:48 09:48 WBC 6.3 (3.8-10.6) k/uL RBC 4.31 (3.80-5.40) m/uL Hgb 13.5 (11.4-16.0) gm/dL Hct 40.7 (34.0-46.0) % MCV 94.6 (80.0-100.0) fL MCH 31.3 (25.0-35.0) pg MCHC 33.1 (31.0-37.0) g/dL RDW 12.7 (11.5-15.5) % Plt Count 195 (150-450) k/uL MPV 8.9 Neutrophils % 60 % Lymphocytes % 30 % Monocytes % 6 % Eosinophils % 3 % Basophils % 0 % Neutrophils # 3.7 (1.3-7.7) k/uL Lymphocytes # 1.9 (1.0-4.8) k/uL Monocytes # 0.4 (0-1.0) k/uL Eosinophils # 0.2 (0-0.7) k/uL Basophils # 0.0 (0-0.2) k/uL PT 11.0 (9.0-12.0) sec INR 1.0 (<1.2) APTT 24.3 (22.0-30.0) sec D-Dimer 0.41 (<0.60) mg/L FEU Sodium 139 (137-145) mmol/L Potassium 4.1 (3.5-5.1) mmol/L Chloride 107 (98-107) mmol/L Carbon Dioxide 24 (22-30) mmol/L Anion Gap 8 mmol/L BUN 13 (7-17) mg/dL Creatinine 0.53 (0.52-1.04) mg/dL Est GFR (CKD-EPI)AfAm >90 (>60 ml/min/1.73 sqM) Est GFR (CKD-EPI)NonAf >90 (>60 ml/min/1.73 sqM) Glucose 85 (74-99) mg/dL Calcium 8.8 (8.4-10.2) mg/dL Total Bilirubin 0.9 (0.2-1.3) mg/dL AST 17 (14-36) U/L ALT 15 (4-34) U/L Alkaline Phosphatase 51 (38-126) U/L Troponin I (0.000-0.034) ng/mL NT-Pro-B Natriuret Pep 26 pg/mL Total Protein 7.2 (6.3-8.2) g/dL Albumin 3.9 (3.5-5.0) g/dL HCG, Quant <2.4 mIU/mL 06/05/23 Range/Units 09:48 WBC (3.8-10.6) k/uL RBC (3.80-5.40) m/uL Hgb (11.4-16.0) gm/dL Hct (34.0-46.0) % MCV (80.0-100.0) fL MCH (25.0-35.0) pg MCHC (31.0-37.0) g/dL RDW (11.5-15.5) % Plt Count (150-450) k/uL MPV Neutrophils % % Lymphocytes % % Monocytes % % Eosinophils % % Basophils % % Neutrophils # (1.3-7.7) k/uL Lymphocytes # (1.0-4.8) k/uL Monocytes # (0-1.0) k/uL Eosinophils # (0-0.7) k/uL Basophils # (0-0.2) k/uL PT (9.0-12.0) sec INR (<1.2) APTT (22.0-30.0) sec D-Dimer (<0.60) mg/L FEU Sodium (137-145) mmol/L Potassium (3.5-5.1) mmol/L Chloride (98-107) mmol/L Carbon Dioxide (22-30) mmol/L Anion Gap mmol/L BUN (7-17) mg/dL Creatinine (0.52-1.04) mg/dL Est GFR (CKD-EPI)AfAm (>60 ml/min/1.73 sqM) Est GFR (CKD-EPI)NonAf (>60 ml/min/1.73 sqM) Glucose (74-99) mg/dL Calcium (8.4-10.2) mg/dL Total Bilirubin (0.2-1.3) mg/dL AST (14-36) U/L ALT (4-34) U/L Alkaline Phosphatase (38-126) U/L Troponin I <0.012 (0.000-0.034) ng/mL NT-Pro-B Natriuret Pep pg/mL Total Protein (6.3-8.2) g/dL Albumin (3.5-5.0) g/dL HCG, Quant mIU/mL Disposition Clinical Impression: Dyspnea Disposition: HOME SELF-CARE Condition: Good Instructions (If sedation given, give patient instructions): Dyspnea (ED) Is patient prescribed a controlled substance at d/c from ED?: No Referrals: Rahul Howell MD [REFERRING] - 1-2 days Time of Disposition: 11:58
[2023-06-05 10:05] LABS: Basophils % (A) 0 %; Eosinophils # (A) 0.2 k/uL (0-0.7); Eosinophils % (A) 3 %; HCT 40.7 % (34.0-46.0); HGB 13.5 gm/dL (11.4-16.0); Lymphocytes # (A) 1.9 k/uL (1.0-4.8); Lymphocytes % (A) 30 %; MCH 31.3 pg (25.0-35.0); MCHC 33.1 g/dL (31.0-37.0); MCV 94.6 fL (80.0-100.0); Mean Platelet Volume 8.9; Monocytes # (A) 0.4 k/uL (0-1.0); Monocytes % (A) 6 %; Neutrophils # (A) 3.7 k/uL (1.3-7.7); Neutrophils % (A) 60 %; Platelet Count 195 k/uL (150-450); RBC 4.31 m/uL (3.80-5.40); RDW 12.7 % (11.5-15.5); WBC 6.3 k/uL (3.8-10.6)
--- NOTE | 2023-06-05 10:12 | XR ---
EXAMINATION TYPE: XR chest 2V DATE OF EXAM: 06/05/2023 COMPARISON: 01/29/2022 HISTORY: 38 year-old female shortness of breath, dyspnea TECHNIQUE: PA and lateral views FINDINGS: The cardiomediastinal silhouette, aorta, and pulmonary vasculature are within normal limits. Some str dave atelectasis in the lower lungs. Increased retrosternal clear space. Cholecystectomy clips. No co nsolidation or pleural effusion. IMPRESSION: Hyperinflation may relate to depth of inspiration or underlying COPD. Clinically correlate. Otherwise , no definite acute process.
[2023-06-05 10:23] LABS: Partial Thromboplastin Time 24.3 sec (22.0-30.0)
[2023-06-05 10:32] LABS: ALT 15 U/L (4-34); AST 17 U/L (14-36); African American GFR (CKD) >90 (>60 ml/min/1.73 sqM); Albumin 3.9 g/dL (3.5-5.0); Alkaline Phosphatase 51 U/L (38-126); Anion Gap 8 mmol/L; Blood Urea Nitrogen 13 mg/dL (7-17); Calcium 8.8 mg/dL (8.4-10.2); Carbon Dioxide 24 mmol/L (22-30); Chloride 107 mmol/L (98-107); Glucose 85 mg/dL (74-99); Non-African American GFR(CKD) >90 (>60 ml/min/1.73 sqM); Potassium 4.1 mmol/L (3.5-5.1); Sodium 139 mmol/L (137-145); Total Bilirubin 0.9 mg/dL (0.2-1.3); Total Protein 7.2 g/dL (6.3-8.2)
[2023-06-05 10:39] LABS: NT-Pro-B-Type Natriuretic Pept 26 pg/mL
[2023-06-05 10:47] LABS: HCG,Quantitative Serum <2.4 mIU/mL
[2023-06-05 11:25] VITALS: BP 106/76; RESP 18
[2023-06-05 12:07] VITALS: PULSE 64; TEMP 98.6
== END 2023-06-05 12:08 | disposition home or self-care (01) ==
LOC: EC 09:16
DX: R06.02 Shortness of breath (principal); E66.01 Morbid (severe) obesity due to excess calories; F17.200 Nicotine dependence, unspecified, uncomplicated; Z88.3 Allergy status to other anti-infective agents; Z88.8 Allergy status to other drugs, medicaments and biological substances; Z91.041 Radiographic dye allergy status; Z68.25 Body mass index [BMI] 25.0-25.9, adult
CPT/HCPCS: 36415; 71046; 80053; 83880; 84484; 84702; 85025; 85379; 85610; 85730; 93005; 99285

== ENCOUNTER → 2023-09-28 | Outpatient (CLI) | payer OTHER ==
[2023-09-28 16:39] LABS: INR 1.1 (<1.2); Partial Thromboplastin Time 25.5 sec (22.0-30.0)
[2023-09-29 01:59] LABS: HCT 42.4 % (37.2-46.3); HGB 13.3 d/dL (12.0-15.0); MCHC 31.4 d/dL (32.0-37.0); MCV 95.5 FL (80.0-97.0); Mean Platelet Volume 11.4 FL (9.5-12.2); NRBC Per 100 WBC 0 X 10*3/uL (0.00-0.01); Platelet Count 162 X 10*3/uL (140-440); RBC 4.44 X 10*6/uL (4.10-5.20); RDW 13.2 % (11.5-14.5); WBC 8.21 X 10*3/uL (4.50-10.00)
[2023-09-29 02:34] LABS: Prealbumin 20.8 mg/dL (18.0-42.0)
[2023-09-29 02:41] LABS: % Iron Saturation 29.49 (12.00-45.00); ALT 11 U/L (8-44); AST 13 U/L (13-35); Albumin 4.3 d/dL (3.8-4.9); Albumin/Globulin Ratio 1.48 Ratio (1.60-3.17); Alkaline Phosphatase 51 U/L (41-126); Blood Urea Nitrogen 14.4 mg/dL (9.0-27.0); Calcium 9.4 mg/dL (8.7-10.3); Carbon Dioxide 24.6 mmol/L (21.6-31.8); Chloride 102 mmol/L (96-109); Chol/HDL Ratio 2.94 Ratio; Globulin 2.9 d/dL (1.6-3.3); Glucose 76 mg/dL (70-110); Iron 92 UG/DL (50-170); LDL Cholesterol,Calculated 101.3 mg/dL (0.0-131.0); Magnesium 1.8 mg/dL (1.5-2.4); Phosphorus 3.5 mg/dL (2.4-5.1); Potassium 3.7 mmol/L (3.5-5.5); Sodium 137 mmol/L (135-145); Total Bilirubin 0.7 mg/dL (0.3-1.2); Total Iron Binding Capacity 312 UG/DL (228-460); Total Protein 7.2 d/dL (6.2-8.2)
== END | disposition home or self-care (01) ==
LOC: LABWHC1 15:21
PROVIDERS: ATTEND Surgery Plastic and Reconstructive Surgery
DX: E66.01 Morbid (severe) obesity due to excess calories (principal); D50.8 Other iron deficiency anemias; K91.2 Postsurgical malabsorption, not elsewhere classified; E44.1 Mild protein-calorie malnutrition; E45 Retarded development following protein-calorie malnutrition; E55.9 Vitamin D deficiency, unspecified; K74.1 Hepatic sclerosis; N19 Unspecified kidney failure; T56.894A Toxic effect of other metals, undetermined, initial encounter; K50.90 Crohn's disease, unspecified, without complications
CPT/HCPCS: 36415; 80053; 80061; 82306; 82525; 82607; 82728; 82746; 83036; 83540; 83550; 83735; 83970; 84100; 84134; 84255; 84425; 84443; 84590; 84630; 85027; 85610; 85730

== ENCOUNTER → 2023-10-24 | Outpatient (CLI) | payer OTHER ==
[2023-10-24 15:44] VITALS: BP 136/82; PULSE 89; TEMP 98; BMI 27.0
--- NOTE | 2023-10-24 16:12 | P.BASOAP ---
Subjective Progress Note Date: 10/24/23 She is having terrible reflux. She comes in with sever reflux. Recommend hold skin removal surgery to alllow correction of acid reflux. Objective - Vital Signs Vital signs: Vital Signs Temp 98 F 10/24/23 15:27 Pulse 89 10/24/23 15:27 Resp BP 136/82 10/24/23 15:27 Pulse Ox FiO2 Intake & Output 10/23/23 10/24/23 10/24/23 18:59 06:59 18:59 Weight 77.111 kg Assessment/Plan Plan: Date: 10/24/23 Initial Weight: 133.81 kg Initial BMI: 46.9 Current Weight: 77.111 kg Current BMI: 27.0 Type of Surgery: Total Volume in Band: Previous Volume: Volume Removed: Volume Added: Band Size:
== END ==
LOC: BARWHC3 15:20
PROVIDERS: ATTEND Surgery Plastic and Reconstructive Surgery
DX: Z53.9 Procedure and treatment not carried out, unspecified reason (principal)
CPT/HCPCS: 99211

== ENCOUNTER 2023-11-20 22:06 | Inpatient (IN) | payer OTHER ==
[2023-11-20] MEDS ORDERED: ETOMIDATE 2 MG/ML 10 ML VIAL IVP STA (22:16)
[2023-11-20] MEDS ORDERED: SODIUM CHLORIDE 0.9% 1,000 ML IV STA (22:20)
[2023-11-20] MEDS ORDERED: ROCURONIUM 10 MG/ML (5 ML VIAL) IV STA (22:20)
[2023-11-20] MEDS ORDERED: FAMOTIDINE 20 MG/2 ML VIAL IV STA (22:22)
[2023-11-20] MEDS ORDERED: methylPREDNISolone SOD SUCCI 125 MG/2 ML VIAL IV STA (22:22)
[2023-11-20] MEDS ORDERED: diphenhydrAMINE 50 MG/ML 1 ML VIAL IVP STA (22:22)
[2023-11-20] MEDS ORDERED: MIDAZOLAM 1 MG/ML 5 ML VIAL IV STA (22:22)
--- NOTE | 2023-11-20 22:23 | ED ---
General Adult HPI - General Chief complaint: Chest Pain Stated complaint: Unresponsive Time Seen by Provider: 11/20/23 22:20 Source: EMS Mode of arrival: EMS - History of Present Illness Initial comments: Sonam is a 38yo F who is brought to the ER via ambulance unresponsive and hypotensive. History was obtained from EMS who was advised by the patient's teenage son that she's recently been diagnosed with RSV and has had a cough so she was prescribed doxycycline for her cough. She had taken that tonight. Prior to arrival she started complaining of chest pain and shortness of breath, she then collapsed and her son called EMS. EMS reports that upon their arrival the patient was unresponsive but moaning, hypotensive with blood pressures of 50s over 30s, no signs of trauma. - Related Data Home Medications Medication Instructions Recorded Confirmed Unable To Assess [Unable to Assess] 11/20/23 11/20/23 Allergies Allergy/AdvReac Type Severity Reaction Status Date / Time Iodinated Contrast Media Allergy Severe Anaphylaxis Verified 06/05/23 11:27 [Iodinated Contrast- Oral and IV Dye] hydrochlorothiazide Allergy Rash/Hives Verified 06/05/23 11:27 fluconazole [From Diflucan] AdvReac Severe Chest Pain Verified 06/05/23 11:27 atorvastatin [From Lipitor] AdvReac Intermediate Chest Pain Verified 06/05/23 11:27 Review of Systems ROS Statement: Those systems with pertinent positive or pertinent negative responses have been documented in the HPI. ROS Other: All systems not noted in ROS Statement are negative. Past Medical History Past Medical History: GI Bleed, Renal Disease Additional Past Medical History / Comment(s): Migraines, sinus problems, peptic ulcer H.pylori (positive), history of upper GI bleed, morbid obesity, blocked bilateral carotid arteries "one is 50% blocked/ the other 70%" per patient on 05/20/18, achalasia, back pain History of Any Multi-Drug Resistant Organisms: None Reported, MRSA Date of last positivie culture/infection: 2015 MDRO Source:: GROIN Past Surgical History: Bariatric Surgery, Section, Cholecystectomy, Heart Catheterization Additional Past Surgical History / Comment(s): Lithotripsy for kidney stone removal, heart catheterization in February at [facility] (on ) endoscopy, gastric sleeve 2018 Past Anesthesia/Blood Transfusion Reactions: No Reported Reaction Past Psychological History: Anxiety Additional Psychological History / Comment(s): Pt resides with her 8 yr old son. She is independent. Smoking Status: Current some day smoker Past Alcohol Use History: None Reported Additional Past Alcohol Use History / Comment(s): Pt started smoking in 2000 and is a half ppd smoker. Past Drug Use History: None Reported - Past Family History Father Family Medical History: Coronary Artery Disease (CAD), Myocardial Infarction (WA ) Additional Family Medical History / Comment(s): Father had a WA at the age of 60yrs. Mother Family Medical History: Diabetes Mellitus, Hypertension, Osteoarthritis (OA) General Exam Limitations: altered mental status General appearance: obtunded Head exam: Present: atraumatic, normocephalic Eye exam: Present: PERRL ENT exam: Present: normal exam, mucous membranes moist Neck exam: Present: other (There is a palpable thrill in the left carotid) Respiratory exam: Present: normal lung sounds bilaterally Cardiovascular Exam: Present: tachycardia GI/Abdominal exam: Present: soft. Absent: distended Rectal exam: Present: normal inspection External exam: Present: normal external exam Extremities exam: Present: normal inspection, normal capillary refill Skin exam: Present: warm, dry. Absent: cyanosis (Flushed), diaphoretic, urticaria, petechiae, pallor, mottled, abrasion Course Vital Signs 11/20/23 11/20/23 11/20/23 22:08 22:28 22:29 Temperature 94.6 F L Pulse Rate 125 H Respiratory 18 Rate Blood Pressure 112/98 O2 Sat by Pulse 99 Oximetry Fraction of 100 70 Inspired Oxygen (FIO2) 11/20/23 11/20/23 11/21/23 23:19 23:49 00:00 Temperature Pulse Rate 103 H 101 H 99 Respiratory 18 16 19 Rate Blood Pressure 126/74 127/69 122/76 O2 Sat by Pulse 99 99 100 Oximetry Fraction of Inspired Oxygen (FIO2) 11/21/23 11/21/23 00:20 01:26 Temperature Pulse Rate 90 Respiratory 15 Rate Blood Pressure 101/72 O2 Sat by Pulse 100 Oximetry Fraction of 40 Inspired Oxygen (FIO2) EKG Findings - EKG Comments: EKG Findings:: EKG interpreted by hi EKG obtaine due to chest pain and hypotension EKG obtained at 2211 rate is 124 with no sinus tach with first- degree AV block AZ is 228, care swollen, QTC 420, there are diffuse ST depressions with some mild elevation in aVR likely rate dependent we will repeat. Repeat EKG read by me. Repeat EKG was obtained at 2349, rate is 101, rhythm is sinus tachycardia, normal axis, normal intervals, AZ 183 QRS 94 QTC [address] elevations or depressions no evidence of ischemia or infarction. Previous changes are no longer present. Procedures - Intubation Sedative: Etomidate Paralytic: Rocuronium Laryngoscope: Eric Size: 4 ET Tube Size: 7.5 ET Tube Uncuffed: No Tube Secured Location: teeth Tube Placement Confirmation: visualized tube passing through cords, equal breath sounds bilaterally Patient Tolerated Procedure: well Intubation Complications: none Medical Decision Making - Medical Decision Making Was pt. sent in by a medical professional or institution (Dr. PA, [employer], urgent care, hospital, or intermediate...) When possible be specific @ -No Did you speak to anyone other than the patient for history (EMS, parent, family, police, friend...)? What history was obtained from this source @ -EMS, Son Did you review nursing and triage notes (agree or disagree)? Why? @ -I reviewed and agree with nursing and triage notes Were old charts reviewed (outside hosp., previous admission, EMS record, old EKG, old radiological studies, urgent care reports/EKG's, intermediate records)? Report findings @ -Previous visits and PMH reviewed Differential Diagnosis (chest pain, altered mental status, abdominal pain women, abdominal pain men, vaginal bleeding, weakness, fever, dyspnea, syncope, headache, dizziness, GI bleed, back pain, seizure, CVA, palpatations, mental health)? @ -Differential Chest Pain: Stable Angina, Unstable Angina, STEMI, NSTEMI Aortic Dissection, Pneumothorax, Musculoskeletal, Esophageal Spasm GERD, Cholecystitis, Pancreatitis, Zoster, this is not meant to be an all-inclusive list. EKG interpreted by me (3pts min.). @ -As above X-rays interpreted by me (1pt min.). @ -None done CT interpreted by me (1pt min.). @ CT Head with no acute findings, CT CAP with no significant vascular abnormalities, no pneumothorax, no free air in abd U/S interpreted by me (1pt. min.). @ -None done What testing was considered but not performed or refused? (CT, X-rays, U/S, labs)? Why? @ -None What meds were considered but not given or refused? Why? @ -Epinephrine - held due to uncertain diagnosis, patient improving by time other pathology ruled out Did you discuss the management of the patient with other professionals (professionals i.e. , PA, [employer], lab, RT, psych nurse, neonatal social worker, hospital clinic assistant, teacher, correctional officer lieutenant, disability case manager)? Give summary @ -RT, Admitting physician, ICU doctor Was smoking cessation discussed for >3mins.? @ -No Was critical care preformed (if so, how long)? @ -Yes 60min Were there social determinants of health that impacted care today? How? (Homelessness, low income, unemployed, alcoholism, drug addiction, transportation, low edu. Level, literacy, decrease access to med. care, [facility], rehab)? @ -No Was there de-escalation of care discussed even if they declined (Discuss DNR or withdrawal of care, Hospice)? DNR status @ -No What co-morbidities impacted this encounter? (DM, HTN, Smoking, COPD, CAD, Cancer, CVA, ARF, Chemo, Hep., AIDS, mental health diagnosis, sleep apnea, morbid obesity)? @ -None Was patient admitted / discharged? Hospital course, mention meds given and route, prescriptions, significant lab abnormalities, going to OR and other pertinent info. @ -Admitted She was seen and evaluated immediately upon arrival to the emergency department GCS 5 E(1) V(1) M(3) Patient not protecting airway - intubated with 7.5 ET Tube Patient hypotensive and tachycardic, IVF infusing Physical exam reveals a palpable thrill of left carotid - chart indicates hx of carotid stenosis CTA of the head and neck chest abdomen were ordered Patient received 3 medications for reported contrast ALLERGY prior to CTA CT reviewed by me at bedside, no obvious abnormalities were noted Patient blood pressure and mental status seemed to be improving. She is now moving her extremities bucking the vent. Sedation orders placed The patient's negative workup further history that this episode occurred 20 minutes after first dose of doxycycline my suspicion is now the patient may be experiencing an atypical anaphylactic shock. Patient took the medication complained of chest pain and shortness of breath collapse and then had GI invo lvement. However patient had no wheezing, no angioedema of the mouth or lips and no skin involvement. At this time patient will be admitted to the ICU because she is intubated. Patient care was discussed with admitting physician Dr. donaldson accepts the admission and Ricardo nurse practitioner for the ICU. Undiagnosed new problem with uncertain prognosis? @ -Yes Drug Therapy requiring intensive monitoring for toxicity (Heparin, Nitro, Ins ulin, Cardizem)? @ -Yes propofol Were any procedures done? @ - No Diagnosis/symptom? @ Unresponsive episode - suspect anaphylactic shock Acute, or Chronic, or Acute on Chronic? @ Acute Uncomplicated (without systemic symptoms) or Complicated (systemic symptoms)? @ Complicated Side effects of treatment? @ Yes - reaction to antibiotic Exacerbation, Progression, or Severe Exacerbation? @ -No Poses a threat to life or bodily function? How? (Chest pain, USA, [place], pneumonia, PE, COPD, DKA, ARF, appy, cholecystitis, CVA, Diverticulitis, Homicidal, Suicidal, threat to staff... and all critical care pts) @ Yes - Lab Data Result diagrams: 11/20/23 22:10 11/20/23 22:10 Lab Results 11/20/23 11/20/23 11/20/23 Range/Units 22:10 22:10 22:10 WBC 11.8 H (3.8-10.6) k/uL RBC 3.87 (3.80-5.40) m/uL Hgb 12.2 (11.4-16.0) gm/dL Hct 35.9 (34.0-46.0) % MCV 92.8 (80.0-100.0) fL MCH 31.4 (25.0-35.0) pg MCHC 33.9 (31.0-37.0) g/dL RDW 12.7 (11.5-15.5) % Plt Count 241 (150-450) k/uL MPV 9.5 Neutrophils % (Manual) 32 % Lymphocytes % (Manual) 65 % Monocytes % (Manual) 3 % Neutrophils # (Manual) 3.78 (1.3-7.7) k/uL Lymphocytes # (Manual) 7.67 H (1.0-4.8) k/uL Monocytes # (Manual) 0.35 (0-1.0) k/uL Nucleated RBCs 0 (0-0) /100 WBC Manual Slide Review Performed RBC Morphology Normal PT 11.6 (10.0-12.5) sec INR 1.1 (<1.2) APTT 30.0 (22.0-30.0) sec Sample Site ABG pH (7.35-7.45) ABG pCO2 (35-45) mmHg ABG pO2 (83-108) mmHg ABG HCO3 (21-25) mmol/L ABG Total CO2 (19-24) mmol/L ABG O2 Saturation (94-97) % ABG Base Excess mmol/L Scooter Test FiO2 % Sodium 141 (137-145) mmol/L Potassium 2.9 L (3.5-5.1) mmol/L Chloride 113 H (98-107) mmol/L Carbon Dioxide 17 L (22-30) mmol/L Anion Gap 11 mmol/L BUN 18 H (7-17) mg/dL Creatinine 0.58 (0.52-1.04) mg/dL Est GFR (CKD-EPI)AfAm >90 (>60 ml/min/1.73 sqM) Est GFR (CKD-EPI)NonAf >90 (>60 ml/min/1.73 sqM) Glucose 132 H (74-99) mg/dL Calcium 8.0 L (8.4-10.2) mg/dL Magnesium 1.7 (1.6-2.3) mg/dL Total Bilirubin 0.5 (0.2-1.3) mg/dL AST 26 (14-36) U/L ALT 18 (4-34) U/L Alkaline Phosphatase 42 (38-126) U/L Troponin I (0.000-0.034) ng/mL Total Protein 6.1 L (6.3-8.2) g/dL Albumin 3.0 L (3.5-5.0) g/dL 11/20/23 11/20/23 Range/Units 22:10 23:34 WBC (3.8-10.6) k/uL RBC (3.80-5.40) m/uL Hgb (11.4-16.0) gm/dL Hct (34.0-46.0) % MCV (80.0-100.0) fL MCH (25.0-35.0) pg MCHC (31.0-37.0) g/dL RDW (11.5-15.5) % Plt Count (150-450) k/uL MPV Neutrophils % (Manual) % Lymphocytes % (Manual) % Monocytes % (Manual) % Neutrophils # (Manual) (1.3-7.7) k/uL Lymphocytes # (Manual) (1.0-4.8) k/uL Monocytes # (Manual) (0-1.0) k/uL Nucleated RBCs (0-0) /100 WBC Manual Slide Review RBC Morphology PT (10.0-12.5) sec INR (<1.2) APTT (22.0-30.0) sec Sample Site Right Radial ABG pH 7.29 L (7.35-7.45) ABG pCO2 40 (35-45) mmHg ABG pO2 92 (83-108) mmHg ABG HCO3 19 L (21-25) mmol/L ABG Total CO2 21 (19-24) mmol/L ABG O2 Saturation 96.9 (94-97) % ABG Base Excess -7.2 mmol/L Scooter Test Yes FiO2 70 % Sodium (137-145) mmol/L Potassium (3.5-5.1) mmol/L Chloride (98-107) mmol/L Carbon Dioxide (22-30) mmol/L Anion Gap mmol/L BUN (7-17) mg/dL Creatinine (0.52-1.04) mg/dL Est GFR (CKD-EPI)AfAm (>60 ml/min/1.73 sqM) Est GFR (CKD-EPI)NonAf (>60 ml/min/1.73 sqM) Glucose (74-99) mg/dL Calcium (8.4-10.2) mg/dL Magnesium (1.6-2.3) mg/dL Total Bilirubin (0.2-1.3) mg/dL AST (14-36) U/L ALT (4-34) U/L Alkaline Phosphatase (38-126) U/L Troponin I <0.012 (0.000-0.034) ng/mL Total Protein (6.3-8.2) g/dL Albumin (3.5-5.0) g/dL - EKG Data -: EKG Interpreted by Sd Critical Care Time Critical Care Time: Yes Total Critical Care Time: 75 Disposition Clinical Impression: Unresponsive episode, Anaphylaxis, Hypokalemia Disposition: ADMITTED IP TO THIS HOSP Condition: Serious Is patient prescribed a controlled substance at d/c from ED?: No
[2023-11-20 22:43] LABS: HCT 35.9 % (34.0-46.0); HGB 12.2 gm/dL (11.4-16.0); MCH 31.4 pg (25.0-35.0); MCHC 33.9 g/dL (31.0-37.0); MCV 92.8 fL (80.0-100.0); Mean Platelet Volume 9.5; Platelet Count 241 k/uL (150-450); RBC 3.87 m/uL (3.80-5.40); RDW 12.7 % (11.5-15.5); WBC 11.8 k/uL (3.8-10.6)
[2023-11-20 22:44] LABS: ALT 18 U/L (4-34); African American GFR (CKD) >90 (>60 ml/min/1.73 sqM); Anion Gap 11 mmol/L; Blood Urea Nitrogen 18 mg/dL (7-17); Carbon Dioxide 17 mmol/L (22-30); Chloride 113 mmol/L (98-107); Glucose 132 mg/dL (74-99); Non-African American GFR(CKD) >90 (>60 ml/min/1.73 sqM); Sodium 141 mmol/L (137-145); Total Bilirubin 0.5 mg/dL (0.2-1.3)
[2023-11-20 22:46] LABS: AST 26 U/L (14-36); Alkaline Phosphatase 42 U/L (38-126); Magnesium 1.7 mg/dL (1.6-2.3); Potassium 2.9 mmol/L (3.5-5.1); Total Protein 6.1 g/dL (6.3-8.2)
[2023-11-20 22:48] LABS: INR 1.1 (<1.2); Prothrombin Time 11.6 sec (10.0-12.5)
[2023-11-20 23:08] LABS: Lymphocytes # (M) 7.67 k/uL (1.0-4.8); Monocytes # (M) 0.35 k/uL (0-1.0); Neutrophils # (M) 3.78 k/uL (1.3-7.7); Neutrophils % (M) 32 %; Nucleated Red Blood Cells 0 /100 WBC (0-0); RBC Morphology Normal; Total Cells Counted 100
--- NOTE | 2023-11-20 23:33 | CT ---
EXAM: CT Head Without Intravenous Contrast CLINICAL HISTORY: unresponsive TECHNIQUE: Axial computed tomography images of the head/brain without intravenous contrast. CTDI is 85.2 mGy and DLP is 829 mGy-cm. This CT exam was performed using one or more of the following dose reduction techniques: automated exposure control, adjustment of the mA and/or kV according to patient size, and/or use of iterative reconstruction technique. COMPARISON: No relevant prior studies available. FINDINGS: Brain: Unremarkable. No acute intracranial hemorrhage, edema or abnormal mass-effect. Ventricles: Unremarkable. No ventriculomegaly. Bones/joints: Unremarkable. No acute fracture. Soft tissues: Unremarkable. Sinuses: Unremarkable as visualized. No acute sinusitis. Mastoid air cells: Unremarkable as visualized. No mastoid effusion. IMPRESSION: Negative head/brain CT.
[2023-11-20 23:45] LABS: ABG Base Excess -7.2 mmol/L; ABG HCO3 19 mmol/L (21-25); ABG Oxygen Saturation 96.9 % (94-97); ABG PCO2 40 mmHg (35-45); ABG PH 7.29 (7.35-7.45); ABG PO2 92 mmHg (83-108); ABG TCO2 21 mmol/L (19-24); Allen Test Performed? Yes
--- NOTE | 2023-11-20 23:47 | CT ---
EXAM: CT Angiography Head With Intravenous Contrast CLINICAL HISTORY: chest pain, hypotensive, unresponsive TECHNIQUE: Axial computed tomographic angiography images of the head with intravenous contrast. CTDI is 35.6 mGy and DLP is 829.85 mGy-cm. This CT exam was performed using one or more of the following dose reduction techniques: automated exposure control, adjustment of the mA and/or kV according to patient size, and/or use of iterative reconstruction technique. MIP reconstructed images were created and reviewed. COMPARISON: No relevant prior studies available. FINDINGS: Right internal carotid artery: No acute findings. Intracranial segment is patent with no significant stenosis. No aneurysm. Right anterior cerebral artery: Unremarkable. No occlusion or significant stenosis. No aneurysm. Right middle cerebral artery: Unremarkable. No occlusion or significant stenosis. No aneurysm. Right posterior cerebral artery: Unremarkable. No occlusion or significant stenosis. No aneurysm. Right vertebral artery: Unremarkable as visualized. Left internal carotid artery: No acute findings. Intracranial segment is patent with no significant stenosis. No aneurysm. Left anterior cerebral artery: Unremarkable. No occlusion or significant stenosis. No aneurysm. Left middle cerebral artery: Unremarkable. No occlusion or significant stenosis. No aneurysm. Left posterior cerebral artery: Unremarkable. No occlusion or significant stenosis. No aneurysm. Left vertebral artery: Unremarkable as visualized. Basilar artery: Unremarkable. No occlusion or significant stenosis. No aneurysm. IMPRESSION: Normal head CTA. EXAM: CT Angiography Neck With Intravenous Contrast CLINICAL HISTORY: chest pain, hypotensive, unresponsive TECHNIQUE: Routine carotid CT angiography protocol was performed with intravenous contrast. NASCET criteria using the distal ICAs for comparison were used for evaluation of stenoses. CTDI is 35.6 mGy and DLP is 829.85 mGy-cm. This CT exam was performed using one or more of the following dose reduction techniques: automated exposure control, adjustment of the mA and/or kV according to patient size, and/or use of iterative reconstruction technique. MIP reconstructed images were created and reviewed. COMPARISON: None. FINDINGS: VASCULATURE: Right common carotid artery: Unremarkable. No occlusion or significant stenosis. No dissection. Right internal carotid artery: Unremarkable. Extracranial segment is patent with no occlusion or significant stenosis. No dissection. Right external carotid artery: Unremarkable. No occlusion. Right vertebral artery: Unremarkable. No occlusion or significant stenosis. No dissection. Left common carotid artery: Unremarkable. No occlusion or significant stenosis. No dissection. Left internal carotid artery: Unremarkable. Extracranial segment is patent with no occlusion or significant stenosis. No dissection. Left external carotid artery: Unremarkable. No occlusion. Left vertebral artery: Unremarkable. No occlusion or significant stenosis. No dissection. NECK: Bones/joints: Unremarkable. No acute fracture. Soft tissues: Unremarkable. Lung apices: Clear. CAROTID STENOSIS REFERENCE USING NASCET CRITERIA: % ICA stenosis = (1 - narrowest ICA diameter/diameter of distal cervical ICA) x 100. Mild - <50% stenosis. Moderate - 50-69% stenosis. Severe - 70-94% stenosis. Near occlusion - 95-99% stenosis. Occluded - 100% stenosis. IMPRESSION: Negative CTA neck.
--- NOTE | 2023-11-21 00:02 | CT ---
EXAM: CT Angiography Chest and CT Abdomen and Pelvis With Intravenous Contrast CLINICAL HISTORY: ITS.REASON CT Reason: chest pain, hypotensive, unresponsive TECHNIQUE: Axial computed tomographic angiography images of the chest and axial computed tomography images of the abdomen and pelvis with intravenous contrast. CTDI is 29.15 mGy and DLP is 560.4 mGy-cm. This CT exam was performed using one or more of the following dose reduction techniques: automated exposure control, adjustment of the mA and/or kV according to patient size, and/or use of iterative reconstruction technique. MIP reconstructed images were created and reviewed. COMPARISON: No relevant prior studies available. FINDINGS: CHEST: Aorta: No acute findings. No aortic aneurysm. No dissection. Pulmonary arteries: Unremarkable as visualized. No pulmonary embolism is identified. Great vessels of aortic arch: No acute findings. No dissection. No arterial occlusion or significant stenosis. Lungs: Unremarkable. No mass. No consolidation. Pleural space: Unremarkable. No significant effusion. No pneumothorax. Heart: Unremarkable. No cardiomegaly. No significant pericardial effusion. ABDOMEN: Liver: Unremarkable. No mass. Gallbladder and bile ducts: Postoperative changes prior cholecystectomy. No ductal dilation. Pancreas: Unremarkable. No ductal dilation. No mass. Spleen: Unremarkable. No splenomegaly. Adrenals: Unremarkable. No mass. Kidneys and ureters: Both kidneys opacify with and excrete contrast in a normal symmetric fashion. No hydronephrosis. No solid mass. Stomach and bowel: Moderate amount of stool within the colon. No obstruction. No mucosal thickening. PELVIS: Appendix: No findings to suggest acute appendicitis. Bladder: Servin catheter within the urinary bladder. Reproductive: IUD seen within the pelvis. 1.5 cm right ovarian cyst versus follicle graph. CHEST, ABDOMEN and PELVIS: Intraperitoneal space: Solid abdominal organs are negative for acute traumatic abnormality no free air or intestinal obstruction. No significant fluid collection. Bones/joints: No acute fracture. No dislocation. Soft tissues: Unremarkable. Lymph nodes: Unremarkable. No enlarged lymph nodes. Tubes, lines and devices: Endotracheal tube with its tip above the laura. Esophageal catheter is present with its tip in the gastric fundus. Exam limited secondary to patient respiratory motion. Thoracic aorta is unremarkable. No pneumothorax. Mild bibasilar dependent atelectasis. IMPRESSION: No acute findings in the chest, abdomen or pelvis.
[2023-11-21] MEDS ORDERED: NALOXONE 0.4 MG/ML 1 ML VIAL IV PRN (01:06)
[2023-11-21] MEDS: SODIUM CHLORIDE 0.9% 1,000 ML IV SCH ×4 (01:15→23:33)
[2023-11-21] MEDS ORDERED: Potassium Replacement Protocol 1 EACH MISC MISCELLANE PRN (01:49)
--- NOTE | 2023-11-21 02:32 | XR ---
EXAM: XR Chest, 1 View CLINICAL HISTORY: ITS.REASON XR Reason: chest pain TECHNIQUE: Frontal view of the chest. COMPARISON: No relevant prior studies available. FINDINGS: Lungs: Unremarkable. No consolidation. Pleural space: Unremarkable. No pneumothorax. Heart: Unremarkable. No cardiomegaly. Mediastinum: Unremarkable. Normal mediastinal contour. Bones/joints: Unremarkable. No acute fracture. Tubes, lines and devices: Endotracheal tube is seen with its tip above the laura. Esophageal catheter is present with its tip coiled within the stomach. IMPRESSION: No acute findings in the chest.
[2023-11-21 03:27] LABS: Amphetamine Screen,Urine Not Detected (NotDetected); Barbiturate Screen,Urine Not Detected (NotDetected); Benzodiazepines Screen,Urine Not Detected (NotDetected); Cocaine Screen,Urine Not Detected (NotDetected); Methadone Screen, Urine Not Detected (NotDetected); Opiate Screen,Urine Not Detected (NotDetected); Oxycodone Screen, Urine Not Detected (NotDetected); Phencyclidine Screen,Urine Not Detected (NotDetected); Tricyclic Antidepressant,Urine Not Detected (NotDetected); Urn Cannabinoid Scrn Not Detected (NotDetected)
[2023-11-21] MEDS: POTASSIUM BICARBONATE/CIT AC 20 MEQ TABLET.EFF NG-TUBE SCH ×3 (04:04→09:59)
[2023-11-21 04:41] LABS: HCT 37.9 % (34.0-46.0); HGB 12.8 gm/dL (11.4-16.0); MCH 31.3 pg (25.0-35.0); MCHC 33.8 g/dL (31.0-37.0); MCV 92.8 fL (80.0-100.0); Mean Platelet Volume 8.8; Platelet Count 193 k/uL (150-450); RBC 4.09 m/uL (3.80-5.40); RDW 12.7 % (11.5-15.5); WBC 29.3 k/uL (3.8-10.6)
[2023-11-21 04:54] LABS: African American GFR (CKD) >90 (>60 ml/min/1.73 sqM); Anion Gap 11 mmol/L; Blood Urea Nitrogen 18 mg/dL (7-17); Calcium 8.4 mg/dL (8.4-10.2); Carbon Dioxide 18 mmol/L (22-30); Chloride 113 mmol/L (98-107); Glucose 137 mg/dL (74-99); Non-African American GFR(CKD) >90 (>60 ml/min/1.73 sqM); Potassium 3.9 mmol/L (3.5-5.1); Sodium 142 mmol/L (137-145)
[2023-11-21 05:31] LABS: Band Neutrophils % 15 %; Lymphocytes # (M) 0.59 k/uL (1.0-4.8); Monocytes # (M) 0.29 k/uL (0-1.0); Neutrophils % (M) 84 %; Nucleated Red Blood Cells 0 /100 WBC (0-0); Total Cells Counted 200
[2023-11-21] MEDS: diphenhydrAMINE 50 MG/ML 1 ML VIAL IVP SCH ×4 (05:59→23:30)
[2023-11-21] MEDS: methylPREDNISolone SOD SUCCI 40 MG/ML 1 ML VIAL IV SCH ×4 (06:00→23:30)
--- NOTE | 2023-11-21 06:58 | P.CNPUL ---
History of Present Illness Consult date: 11/21/23 Requesting physician: Denisse Nye Reason for consult: other (ICU management) Chief complaint: Altered mental status History of present illness: I am seeing this patient in consultation today 11/21/2023 in the emergency room trauma [place] [facility]. Patient is a 38-year-old female with past medical history significant for gastric bypass surgery, GI bleed, and carotid artery stenosis. According to the ER documentation the patient was reportedly diagnosed with RSV earlier in the week. She was then prescribed doxycycline. Approximately 20 minutes after taking her first dose, she was complaining of chest pain and shortness of breath. She then collapsed, this was witnessed by her son who cont acted EMS. On arrival, the patient was reportedly found unresponsive and moaning. Blood pressures were severely hypotensive. On arrival to the emergency room, the patient was intubated by the ER physician. Patient was unable to protect her airway. No noticeable angioedema or rash. Patient was treated for a possible anaphylactic reaction. A CT of the chest, abdomen, and pelvis did not show any acute findings. No obvious central pulmonary embolism was found. No aortic dissection. Lungs unremarkable, no focal consolidations or evidence of pneumonia. No acute intra-abdominal abnormality. Brain CT and brain CTA unremarkable for any acute intracranial abnormalities. No significant flow-limiting carotid artery stenosis. EKG was consistent with sinus tachycardia, no obvious ST elevation. There was generalized mild ST depression. CBC from this morning shows a WBC count of 29.3, hemoglobin 12.8, hematocrit 37.9, platelets 193. BMP has a sodium 142, potassium 3.9, chloride 113, serum bicarb 18, BUN 18, creatinine 0.61. Normal saline infusing at 130 ML's per hour. Urine drug screen negative. Patient is currently intubated on mechanical ventilator settings of assist control, respiratory rate 12, tidal volume 450, FiO2 40%, PEEP of 5. ABGs done on the settings with an FiO2 of 70% show a pH of 7.29, pCO2 40, pO2 of 92. Post intubation chest x-ray shows endotracheal tube approximately 2 cm above the laura. Orogastric tube is coursing below the diaphragm. No focal infiltrates or evidence of pneumonia. Viral screen positive for COVID-19. Patient is sedated on propofol infusing at 50 mcg/kg/m. The Peak pressure is 22 and static airway pressure 13. Her rhythm appears normal sinus a bedside monitor. Blood pressures normalized after 1 L normal saline bolus. Not requiring any vasopressors. Patient will be transferred to intensive care unit once bed available. Review of Systems ROS unobtainable: due to endotracheal tube Past Medical History Past Medical History: GI Bleed, Renal Disease Additional Past Medical History / Comment(s): Migraines, sinus problems, peptic ulcer H.pylori (positive), history of upper GI bleed, morbid obesity, blocked bilateral carotid arteries "one is 50% blocked/ the other 70%" per patient on 05/20/18, achalasia, back pain History of Any Multi-Drug Resistant Organisms: None Reported, MRSA Date of last positivie culture/infection: 2015 MDRO Source:: GROIN Past Surgical History: Bariatric Surgery, Section, Cholecystectomy, Heart Catheterization Additional Past Surgical History / Comment(s): Lithotripsy for kidney stone removal, heart catheterization in February at [facility] (on ) endoscopy, gastric sleeve 2018 Past Anesthesia/Blood Transfusion Reactions: No Reported Reaction Past Psychological History: Anxiety Additional Psychological History / Comment(s): Pt resides with her 8 yr old son. She is independent. Smoking Status: Current some day smoker Past Alcohol Use History: None Reported Additional Past Alcohol Use History / Comment(s): Pt started smoking in 2000 and is a half ppd smoker. Past Drug Use History: None Reported - Past Family History Father Family Medical History: Coronary Artery Disease (CAD), Myocardial Infarction (AR ) Additional Family Medical History / Comment(s): Father had a AR at the age of 60yrs. Mother Family Medical History: Diabetes Mellitus, Hypertension, Osteoarthritis (OA) Medications and Allergies Home Medications Medication Instructions Recorded Confirmed Type Unable To Assess [Unable to Assess] 11/20/23 11/20/23 History Allergies Allergy/AdvReac Type Severity Reaction Status Date / Time Iodinated Contrast Media Allergy Severe Anaphylaxis Verified 06/05/23 11:27 [Iodinated Contrast- Oral and IV Dye] hydrochlorothiazide Allergy Rash/Hives Verified 06/05/23 11:27 fluconazole [From Diflucan] AdvReac Severe Chest Pain Verified 06/05/23 11:27 atorvastatin [From Lipitor] AdvReac Intermediate Chest Pain Verified 06/05/23 11:27 Physical Exam Vitals: Vital Signs Temp Pulse Resp BP Pulse Ox FiO2 11/21/23 04:28 99.7 F H 11/21/23 03:30 97 15 110/80 100 11/21/23 03:00 82 15 110/79 98 11/21/23 02:30 78 17 112/81 100 11/21/23 02:00 78 16 112/78 100 11/21/23 01:30 91 15 98/69 100 11/21/23 01:26 40 11/21/23 01:00 94 15 98/73 100 11/21/23 00:31 85 14 107/69 100 11/21/23 00:20 90 15 101/72 100 11/21/23 00:00 99 19 122/76 100 11/20/23 23:49 101 H 16 127/69 99 11/20/23 23:19 103 H 18 126/74 99 11/20/23 22:29 70 11/20/23 22:28 100 11/20/23 22:08 94.6 F L 125 H 18 112/98 99 Intake and Output 11/20/23 11/20/23 11/21/23 14:59 22:59 06:59 Intake Total 22.147 Balance 22.147 Intake: Intake, IV Titration 22.147 Amount propofoL 1,000 mg In 22.147 Empty Bag 1 bag @ 15 MCG/ KG/MIN 7.144 mls/hr IV . Q14H [facility] Rx#:[id number] Other: Weight 75 kg GENERAL EXAM: Patient is currently sedated, intubated to the mechanical ventilator. HEAD: Normocephalic and atraumatic. EYES: Normal reaction of pupils, equal size. NOSE: Clear with pink turbinates. THROAT: No erythema or exudates. NECK: No masses, no JVD. CHEST: No chest wall deformity. LUNGS: Equal air entry with no crackles, wheeze, rhonchi or dullness. Intubated to the mechanical ventilator, breathing above set rate. CVS: S1 and S2 normal with no audible murmur, regular rhythm. No extra heart sounds ABDOMEN: No hepatosplenomegaly, active bowel sounds, no guarding or rigidity. SPINE: No scoliosis or deformity SKIN: No rashes CENTRAL NERVOUS SYSTEM: Sedated, does not follow commands, no focal deficits, withdraws to pain in all 4 extremities. EXTREMITIES: There is no peripheral edema, clubbing, or cyanosis. Peripheral pulses are intact. Results - Laboratory Findings CBC and BMP: 11/21/23 04:31 11/21/23 04:31 ABG ABG pH 7.29 (7.35-7.45) L 11/20/23 23:34 ABG pCO2 40 mmHg (35-45) 11/20/23 23:34 ABG pO2 92 mmHg (83-108) 11/20/23 23:34 ABG O2 Saturation 96.9 % (94-97) 11/20/23 23:34 PT/INR, D-dimer PT 11.6 sec (10.0-12.5) 11/20/23 22:10 INR 1.1 (<1.2) 11/20/23 22:10 Abnormal lab findings: Abnormal Labs 11/20/23 11/20/23 11/20/23 22:10 22:10 23:34 WBC 11.8 H Lymphocytes # (Manual) 7.67 H ABG pH 7.29 L ABG HCO3 19 L Potassium 2.9 L Chloride 113 H Carbon Dioxide 17 L BUN 18 H Glucose 132 H Calcium 8.0 L Total Protein 6.1 L Albumin 3.0 L SARS-CoV-2 (PCR) 11/21/23 11/21/23 11/21/23 03:36 04:31 04:31 WBC 29.3 H Lymphocytes # (Manual) ABG pH ABG HCO3 Potassium Chloride 113 H Carbon Dioxide 18 L BUN 18 H Glucose 137 H Calcium Total Protein Albumin SARS-CoV-2 (PCR) Detected A - Diagnostic Findings Chest x-ray: image reviewed CT scan - chest: image reviewed Assessment and Plan Assessment: Possible anaphylactic reaction to doxycycline Acute COVID-19 infection, without evidence of COVID-19 pneumonia Acute hypoxemic respiratory failure, intubated on the mechanical ventilator. Non-anion gap metabolic acidosis Leukocytosis Hypokalemia, improved History of gastric bypass Chronic ongoing tobacco dependence Plan: Patient's medications, labs, imaging reviewed. Continue mechanical ventilator with current settings. ET tube in adequate position. Patient was started on meds for potential anaphylactic shock. Blood pressure has responded to fluid resuscitation. No epinephrine given. Patient did test positive for COVID-19. No evidence of COVID pneumonia on x-ray. Urine drug screen negative. GI prophylaxis covered with Pepcid. DVT prophylaxis was added in the form of Lovenox. Patient will be admitted to the intensive care unit once bed available. I have personally seen and examined the patient, performed the documentation and the assessment and plan as written. Number of minutes spent on the visit:20 Time with Patient: Greater than 30
--- NOTE | 2023-11-21 08:27 | XR ---
EXAMINATION TYPE: XR chest 1V portable DATE OF EXAM: 11/21/2023 5:36 AM CLINICAL INDICATION:Female, 38 years old with history of Tube placement; [facility] COMPARISON: Chest radiographs from 11/21/2023. TECHNIQUE: XR chest 1V portable Frontal view of the chest. FINDINGS: Lungs/Pleura: There is no evidence of pleural effusion, focal consolidation, or pneumothorax. Pulmonary vascularity: Unremarkable. Heart/mediastinum: Cardiomediastinal silhouette is unremarkable. Musculoskeletal: No acute osseous pathology. Other findings: None Lines/Tubes: Endotracheal tube with distal tip 22 mm above the laura. Nasogastric tube with its distal tip and side-port projecting under the diaphragm. IMPRESSION: No acute cardiopulmonary disease/process.
[2023-11-21] MEDS: FAMOTIDINE 20 MG/2 ML VIAL IV SCH ×2 (10:01→20:07)
[2023-11-21] MEDS: CHLORHEXIDINE GLUCONATE 15 ML CUP MUCOUS MEM SCH ×2 (10:04→20:07)
[2023-11-21] MEDS: ENOXAPARIN 40 MG/0.4 ML SYRINGE SQ SCH (10:10)
--- NOTE | 2023-11-21 10:53 | P.CNPUL ---
History of Present Illness Consult date: 11/21/23 Chief complaint: acute respiratory failure and hypotension History of present illness: History of Present Illness Consult date: 11/21/23 Requesting physician: Denisse Nye Reason for consult: other (ICU management) Chief complaint: Altered mental status History of present illness: I am seeing this patient in consultation today 11/21/2023 in the emergency room trauma [place] [facility]. Patient is a 38-year-old female with past medical history significant for gastric bypass surgery, GI bleed, and carotid artery stenosis. According to the ER documentation the patient was reportedly diagnosed with RSV earlier in the week. She was then prescribed doxycycline. Approximately 20 minutes after taking her first dose, she was complaining of chest pain and shortness of breath. She then collapsed, this was witnessed by her son who contacted EMS. On arrival, the patient was reportedly found unresponsive and moaning. Blood pressures were severely hypotensive. On arrival to the emergency room, the patient was intubated by the ER physician. Patient was unable to protect her airway. No noticeable angioedema or rash. Patient was treated for a possible anaphylactic reaction. A CT of the chest, abdomen, and pelvis did not show any acute findings. No obvious central pulmonary embolism was found. No aortic dissection. Lungs unremarkable, no focal consolidations or evidence of pneumonia. No acute intra-abdominal abnormality. Brain CT and brain CTA unremarkable for any acute intracranial abnormalities. No significant flow-limiting carotid artery stenosis. EKG was consistent with sinus tac hycardia, no obvious ST elevation. There was generalized mild ST depression. CBC from this morning shows a WBC count of 29.3, hemoglobin 12.8, hematocrit 37.9, platelets 193. BMP has a sodium 142, potassium 3.9, chloride 113, serum bicarb 18, BUN 18, creatinine 0.61. Normal saline infusing at 130 ML's per hour. Urine drug screen negative. Patient is currently intubated on mechanical ventilator settings of assist control, respiratory rate 12, tidal volume 450, FiO2 40%, PEEP of 5. ABGs done on the settings with an FiO2 of 70% show a pH of 7.29, pCO2 40, pO2 of 92. Post intubation chest x-ray shows endotracheal tube approximately 2 cm above the laura. Orogastric tube is coursing below the diaphragm. No focal infiltrates or evidence of pneumonia. Viral screen positive for COVID-19. Patient is sedated on propofol infusing at 50 mcg/kg/m. The Peak pressure is 22 and static airway pressure 13. Her rhythm appears normal sinus a bedside monitor. Blood pressures normalized after 1 L normal saline bolus. Not requiring any vasopressors. Patient will be transferred to intensive care unit once bed available. Note that contrary to the reported history, the patient tested positive for Covid 19. RSV was negative. CT a of the aorta including chest abdomen and pelvis was negative. The CTA of the brain was also negative and the CAT scan of the brain showed no acute abnormalities. The chest x-ray showed adequate positioning of 82 and there was no acute cardiac pulmonary abnormalities. Currently, the patient is normotensive. She has required fluid and current fluids are running at the rate of 130 mL an hour. She has not required any pressors. Cardiac rhythm is sinus. She remains on a mechanical ventilator. Blood gas from yesterday was noted. Repeat blood work from today shows a serum bicarb of 18, BUN of 18 and a creatinine of 0.6 and a white cycles of 29.3 and hemoglobin is at 12.8. The patient is currently on IV Solu-Medrol 40 mg every 6 hours. She is on Lovenox for DVT prophylaxis. She is also on normal saline at 1 30 mL's an hour. Propofol is running at 50 mcg/kg/m and she is calm and comfortable and hemodynamically stable. Review of Systems ROS unobtainable: due to endotracheal tube Past Medical History Past Medical History: GI Bleed, Renal Disease Additional Past Medical History / Comment(s): Migraines, sinus problems, peptic ulcer H.pylori (positive), history of upper GI bleed, morbid obesity, blocked bilateral carotid arteries "one is 50% blocked/ the other 70%" per patient on 05/20/18, achalasia, back pain History of Any Multi-Drug Resistant Organisms: None Reported, MRSA Date of last positivie culture/infection: 2015 MDRO Source:: GROIN Past Surgical History: Bariatric Surgery, Section, Cholecystectomy, Heart Catheterization Additional Past Surgical History / Comment(s): Lithotripsy for kidney stone removal, heart catheterization in February at [facility] (on ) endoscopy, gastric sleeve 2018 Past Anesthesia/Blood Transfusion Reactions: No Reported Reaction Past Psychological History: Anxiety Additional Psychological History / Comment(s): Pt resides with her 8 yr old son. She is independent. Smoking Status: Current some day smoker Past Alcohol Use History: None Reported Additional Past Alcohol Use History / Comment(s): Pt started smoking in 2000 and is a half ppd smoker. Past Drug Use History: None Reported - Past Family History Father Family Medical History: Coronary Artery Disease (CAD), Myocardial Infarction ([place]) Additional Family Medical History / Comment(s): Father had a MN at the age of 60yrs. Mother Family Medical History: Diabetes Mellitus, Hypertension, Osteoarthritis (OA) Medications and Allergies Home Medications Medication Instructions Recorded Confirmed Type Unable To Assess [Unable to Assess] 11/20/23 11/20/23 History Allergies Allergy/AdvReac Type Severity Reaction Status Date / Time Iodinated Contrast Media Allergy Severe Anaphylaxis Verified 06/05/23 11:27 [Iodinated Contrast- Oral and IV Dye] hydrochlorothiazide Allergy Rash/Hives Verified 06/05/23 11:27 fluconazole [From Diflucan] AdvReac Severe Chest Pain Verified 06/05/23 11:27 atorvastatin [From Lipitor] AdvReac Intermediate Chest Pain Verified 06/05/23 11:27 Physical Exam Vitals: Vital Signs Temp Pulse Resp BP Pulse Ox FiO2 11/21/23 04:28 99.7 F H 11/21/23 03:30 97 15 110/80 100 11/21/23 03:00 82 15 110/79 98 11/21/23 02:30 78 17 112/81 100 11/21/23 02:00 78 16 112/78 100 11/21/23 01:30 91 15 98/69 100 11/21/23 01:26 40 11/21/23 01:00 94 15 98/73 100 11/21/23 00:31 85 14 107/69 100 11/21/23 00:20 90 15 101/72 100 11/21/23 00:00 99 19 122/76 100 11/20/23 23:49 101 H 16 127/69 99 11/20/23 23:19 103 H 18 126/74 99 11/20/23 22:29 70 11/20/23 22:28 100 11/20/23 22:08 94.6 F L 125 H 18 112/98 99 Intake and Output 11/20/23 11/20/23 11/21/23 14:59 22:59 06:59 Intake Total 22.147 Balance Intake: Intake, IV Titration .147 Amount propofoL 1,000 mg In . Empty Bag 1 bag @ 15 MCG/ KG/MIN 7.144 mls/hr IV . Q14H [facility] Rx#:[id number] Other: Weight 75 kg GENERAL EXAM: Patient is currently sedated, intubated to the mechanical ventilator. HEAD: Normocephalic and atraumatic. EYES: Normal reaction of pupils, equal size. NOSE: Clear with pink turbinates. THROAT: No erythema or exudates. NECK: No masses, no JVD. CHEST: No chest wall deformity. LUNGS: Equal air entry with no crackles, wheeze, rhonchi or dullness. Intubated to the mechanical ventilator, breathing above set rate. CVS: S1 and S2 normal with no audible murmur, regular rhythm. No extra heart sounds ABDOMEN: No hepatosplenomegaly, active bowel sounds, no guarding or rigidity. SPINE: No scoliosis or deformity SKIN: No rashes CENTRAL NERVOUS SYSTEM: Sedated, does not follow commands, no focal deficits, withdraws to pain in all 4 extremities. EXTREMITIES: There is no peripheral edema, clubbing, or cyanosis. Peripheral pulses are intact. Results - Laboratory Findings CBC and BMP: 11/21/23 04:31 11/21/23 04:31 ABG ABG pH 7.29 (7.35-7.45) L 11/20/23 23:34 ABG pCO2 40 mmHg (35-45) 11/20/23 23:34 ABG pO2 92 mmHg (83-108) 11/20/23 23:34 ABG O2 Saturation 96.9 % (94-97) 11/20/23 23:34 PT/INR, D-dimer PT 11.6 sec (10.0-12.5) 11/20/23 22:10 INR 1.1 (<1.2) 11/20/23 22:10 Abnormal lab findings: Abnormal Labs 11/20/23 11/20/23 11/20/23 22:10 22:10 23:34 WBC 11.8 H Lymphocytes # (Manual) 7.67 H ABG pH 7.29 L ABG HCO3 19 L Potassium 2.9 L Chloride 113 H Carbon Dioxide 17 L BUN 18 H Glucose 132 H Calcium 8.0 L Total Protein 6.1 L Albumin 3.0 L SARS-CoV-2 (PCR) 11/21/23 11/21/23 11/21/23 03:36 04:31 04:31 WBC 29.3 H Lymphocytes # (Manual) ABG pH ABG HCO3 Potassium Chloride 113 H Carbon Dioxide 18 L BUN 18 H Glucose 137 H Calcium Total Protein Albumin SARS-CoV-2 (PCR) Detected A - Diagnostic Findings Chest x-ray: image reviewed CT scan - chest: image reviewed Assessment and Plan Assessment: Possible anaphylactic reaction to doxycycline, currently hemodynamically stable and the patient is normotensive resuscitated with IV fluids currently on normal saline at the rate of 130 mL an hour Acute hypoxic respiratory failure. The patient was intubated due to concerns of her inability to protect her airways. Chest x-ray shows no acute abnormalities. CT angiogram of the chest abdomen and pelvis showed no acute abnormalities. Acute COVID-19 infection, without evidence of COVID-19 pneumonia, according to the mother, the patient has had previous Covid 19 infections. Non-anion gap metabolic acidosis Leukocytosis, likely reactive Hypokalemia, improved History of gastric bypass Chronic ongoing tobacco dependence Plan The patient is hemodynamically stable. The patient is normotensive. Cardiac rhythm is sinus. She is well sedated on propofol. Chest x-ray shows no acute abnormalities Patient is currently on IV Solu-Medrol which we continued Continue normal saline at the rate of 130 mL's an hour Give the patient has sedation holiday and assess weaning parameters. The weaning parameters are adequate, we'll give the patient is post his breathing trial with a pressure support of 5 and a PEEP of 5 and consider extubation if she demonstrates adequate mentation and adequate blood gases while being on a spontaneous breathing trial. We'll make a final decision accordingly She is currently emergency department Continue Lovenox for DVT prophylaxis No need for antibiotics at this point in time Cultures were sent We'll continue to follow. Condition is critical. We'll continue to follow make further recommendations based on her progress. Plan: Patient's medications, labs, imaging reviewed. Continue mechanical ventilator with current settings. ET tube in adequate position. Patient was started on meds for potential anaphylactic shock. Blood pressure has responded to fluid resuscitation. No epinephrine given. Patient did test positive for COVID-19. No evidence of COVID pneumonia on x-ray. Urine drug screen negative. GI prophylaxis covered with Pepcid. DVT prophylaxis was added in the form of Lovenox. Patient will be admitted to the intensive care unit once bed available. Past Medical History Past Medical History: GI Bleed, Renal Disease Additional Past Medical History / Comment(s): Migraines, sinus problems, peptic ulcer H.pylori (positive), history of upper GI bleed, morbid obesity, blocked bilateral carotid arteries "one is 50% blocked/ the other 70%" per patient on 05/20/18, achalasia, back pain History of Any Multi-Drug Resistant Organisms: None Reported, MRSA Date of last positivie culture/infection: 2015 MDRO Source:: GROIN Past Surgical History: Bariatric Surgery, Section, Cholecystectomy, Heart Catheterization Additional Past Surgical History / Comment(s): Lithotripsy for kidney stone removal, heart catheterization in February at [facility] (on ) endoscopy, gastric sleeve 2018 Past Anesthesia/Blood Transfusion Reactions: No Reported Reaction Past Psychological History: Anxiety Additional Psychological History / Comment(s): Pt resides with her 8 yr old son. She is independent. Smoking Status: Current some day smoker Past Alcohol Use History: None Reported Additional Past Alcohol Use History / Comment(s): Pt started smoking in 2000 and is a half ppd smoker. Past Drug Use History: None Reported - Past Family History Father Family Medical History: Coronary Artery Disease (CAD), Myocardial Infarction ([place]) Additional Family Medical History / Comment(s): Father had a [place] at the age of 60yrs. Mother Family Medical History: Diabetes Mellitus, Hypertension, Osteoarthritis (OA) Medications and Allergies Home Medications Medication Instructions Recorded Confirmed Type Unable To Assess [Unable to Assess] 11/20/23 11/20/23 History Allergies Allergy/AdvReac Type Severity Reaction Status Date / Time Iodinated Contrast Media Allergy Severe Anaphylaxis Verified 06/05/23 11:27 [Iodinated Contrast- Oral and IV Dye] hydrochlorothiazide Allergy Rash/Hives Verified 06/05/23 11:27 fluconazole [From Diflucan] AdvReac Severe Chest Pain Verified 06/05/23 11:27 atorvastatin [From Lipitor] AdvReac Intermediate Chest Pain Verified 06/05/23 11:27 Physical Exam Vitals: Vital Signs Temp Pulse Resp BP Pulse Ox FiO2 11/21/23 10:00 85 22 103/68 100 11/21/23 09:30 94 21 104/68 100 11/21/23 09:00 88 18 109/70 100 11/21/23 08:30 91 17 116/81 100 11/21/23 08:06 40 11/21/23 08:01 40 11/21/23 08:00 81 18 113/77 100 11/21/23 07:30 75 17 108/70 100 11/21/23 06:30 82 17 109/81 100 11/21/23 06:00 78 16 102/71 100 11/21/23 05:30 80 17 98/69 99 11/21/23 05:00 103 H 18 99/67 100 11/21/23 04:30 87 17 96/69 100 11/21/23 04:28 99.7 F H 11/21/23 04:00 86 17 105/74 99 11/21/23 03:30 97 15 110/80 100 11/21/23 03:00 82 15 110/79 98 11/21/23 02:30 78 17 112/81 100 11/21/23 02:00 78 16 112/78 100 11/21/23 01:30 91 15 98/69 100 11/21/23 01:26 40 11/21/23 01:00 94 15 98/73 100 11/21/23 00:31 85 14 107/69 100 11/21/23 00:20 90 15 101/72 100 11/21/23 00:00 99 19 122/76 100 11/20/23 23:49 101 H 16 127/69 99 11/20/23 23:19 103 H 18 126/74 99 11/20/23 22:29 70 11/20/23 22:08 94.6 F L 125 H 18 112/98 99 Intake and Output 11/20/23 11/21/23 11/21/23 22:59 06:59 14:59 Intake Total 100.000 Balance 100.000 Intake: Intake, IV Titration 100.000 Amount propofoL 1,000 mg In 100.000 Empty Bag 1 bag @ 15 MCG/ KG/MIN 7.144 mls/hr IV . Q14H [facility] Rx#:[id number] Other: Weight 75 kg Results - Laboratory Findings CBC and BMP: 11/21/23 04:31 11/21/23 04:31 ABG ABG pH 7.29 (7.35-7.45) L 11/20/23 23:34 ABG pCO2 40 mmHg (35-45) 11/20/23 23:34 ABG pO2 92 mmHg (83-108) 11/20/23 23:34 ABG O2 Saturation 96.9 % (94-97) 11/20/23 23:34 PT/INR, D-dimer PT 11.6 sec (10.0-12.5) 11/20/23 22:10 INR 1.1 (<1.2) 11/20/23 22:10 Abnormal lab findings: Abnormal Labs 11/20/23 11/20/23 11/20/23 22:10 22:10 23:34 WBC 11.8 H Neutrophils # (Manual) Lymphocytes # (Manual) 7.67 H ABG pH 7.29 L ABG HCO3 19 L Potassium 2.9 L Chloride 113 H Carbon Dioxide 17 L BUN 18 H Glucose 132 H Calcium 8.0 L Total Protein 6.1 L Albumin 3.0 L SARS-CoV-2 (PCR) 11/21/23 11/21/23 11/21/23 03:36 04:31 04:31 WBC 29.3 H Neutrophils # (Manual) 29.00 H Lymphocytes # (Manual) 0.59 L ABG pH ABG HCO3 Potassium Chloride 113 H Carbon Dioxide 18 L BUN 18 H Glucose 137 H Calcium Total Protein Albumin SARS-CoV-2 (PCR) Detected A
[2023-11-21 12:14] LABS: ABG Base Excess -5.4 mmol/L; ABG HCO3 20 mmol/L (21-25); ABG Oxygen Saturation 99.2 % (94-97); ABG PCO2 34 mmHg (35-45); ABG PH 7.38 (7.35-7.45); ABG PO2 179 mmHg (83-108); ABG TCO2 21 mmol/L (19-24); Allen Test Performed? Yes
--- NOTE | 2023-11-21 18:29 | P.HPIM ---
History of Present Illness H&P Date: 11/21/23 Chief Complaint: Became unresponsive This is a pleasant 30 atrial patient who follows with Dr. Becky Howell. 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 Patient is due to. Surgery for a GI tract next week. Patient was diagnosed with RSV infection on November 07. Patient had gone into the walk-in clinic assisted living some respiratory symptoms. Dated a checks x-ray and told there was nothing much to prescribe her doxycycline. Patient came on to the first dosage. Patient started feeling her heart was racing palpitations started perspiring and then patient passed out. Patient 13-year-old son was there within called medical services. Initial blood pressure recorded was 54/27 the heart rate of 111. Pulse ox was 94%. Patient also noted to be short of breath. Patient also vomiting. Initial [place]'s coma scale was 5. Initial EKG showed sinus tachycardia. Patient was intubated in the ER. This morning patient is extubated. Propped up. Able to give a history. Patient's mother the bedside. Review of systems: GEN.: Tired EYES: None HEENT: None NECK: None RESPIRATORY: Nasal congestion CARDIOVASCULAR: None GASTROINTESTINAL: None GENITOURINARY: None MUSCULOSKELETAL: None LYMPHATICS: None HEMATOLOGICAL: None PSYCHIATRY: None NEUROLOGICAL: None Social history: Patient is a 13-year-old son at home. Works at the [employer]. Cutback back on smoking. Down to 1 cigarette a day. Denies use of any other recreational drugs. Smoking for 22 years half a pack a day until recently. Physical examination: VITAL SIGNS: 93, 12, 170/80, 99% on 4 L, GENERAL: BMI 26.7, propped up in bed awake. EYES: Pupils equal. Conjunctiva normal. HEENT: External appearance of nose and ears normal, oral cavity grossly normal. NECK: JVD not raised; masses not palpable. HEART: First and second heart sounds are normal; no edema. LUNGS: Respiratory rate normal; fair entry. Occasional crackle. ABDOMEN: Soft, nontender, liver spleen not palpable, no masses palpable. PSYCH: Alert and oriented x3; mood and affect normal. MUSCULOSKELETAL:No Clubbing/cyanosis;muscles-grossly intact NEUROLOGICAL: Cranial nerves grossly intact; no facial asymmetry, power and sensation grossly intact. LYMPHATICS: No lymph nodes palpable in the axilla and neck INVESTIGATIONS, reviewed in the clinical context: November 21: White count 29.3 hemoglobin 12.8 platelets 193 sodium 142 potassium 3.9 BUN 18 creatinine 0.61 COVID 19: PCR: Detected November 20: White count 11.8 hemoglobin 12.2 platelets 241 sodium 141 potassium 2.9 creatinine 0.58 HCG less than 2.4 Urine drug screen: Not detected EKG tracing personally reviewed by me-no sinus rhythm. Brain CT: Negative CT angiogram head and neck: Unremarkable Thoracic aorta CT: Negative Assessment and plan: -Possible severe anaphylactic reaction to doxycycline. Causing patient to be tachycardic hypotensive becoming unresponsive. Fluid resuscitated IV Solu-Medrol. Pepcid. Benadryl -Acute hypoxic respiratory failure likely secondary to severe anaphylactic reaction. Patient was intubated overnight. Extubated this morning. Currently on nasal cannula. -Acute COVID 19 infection . No associated hypoxia because of the same. -Metabolic acidosis -Leukocytosis reactive -History of bariatric surgery. -Pending surgery for a achalasia-that was scheduled for early next week. -Chronic nicotine dependence, cigarette smoker Patient counseled. Nicotine patch Past Medical History Past Medical History: GI Bleed, Renal Disease Additional Past Medical History / Comment(s): Migraines, sinus problems, peptic ulcer H.pylori (positive), history of upper GI bleed, morbid obesity, blocked bilateral carotid arteries "one is 50% blocked/ the other 70%" per patient on 05/20/18, achalasia, back pain History of Any Multi-Drug Resistant Organisms: None Reported, MRSA Date of last positivie culture/infection: 2015 MDRO Source:: GROIN Past Surgical History: Bariatric Surgery, Section, Cholecystectomy, Heart Catheterization Additional Past Surgical History / Comment(s): Lithotripsy for kidney stone re moval, heart catheterization in February at [facility] (on ) endoscopy, gastric sleeve 2018 Past Anesthesia/Blood Transfusion Reactions: No Reported Reaction Past Psychological History: Anxiety Additional Psychological History / Comment(s): Pt resides with her 8 yr old son. She is independent. Smoking Status: Current some day smoker Past Alcohol Use History: None Reported Additional Past Alcohol Use History / Comment(s): Pt started smoking in 2000 and is a half ppd smoker. Past Drug Use History: None Reported - Past Family History Father Family Medical History: Coronary Artery Disease (CAD), Myocardial Infarction ([place]) Additional Family Medical History / Comment(s): Father had a [place] at the age of 60yrs. Mother Family Medical History: Diabetes Mellitus, Hypertension, Osteoarthritis (OA) Medications and Allergies Home Medications Medication Instructions Recorded Confirmed Type ALPRAZolam [Xanax] 0.25 mg PO DAILY PRN 11/21/23 11/21/23 History Azithromycin [Zithromax Z Pack] See Taper PO DIRECTED 11/21/23 11/21/23 History Benzonatate [Tessalon Perles] 200 mg PO BID PRN 11/21/23 11/21/23 History Biotin(Unknown Dose) 1 cap PO DAILY 11/21/23 11/21/23 History Clotrimazole [Clotrimazole AF] 1 applic TOPICAL BID 11/21/23 11/21/23 History Doxycycline Hyclate 100 mg PO BID 11/21/23 11/21/23 History Famotidine 20 mg PO DAILY 11/21/23 11/21/23 History Furosemide [Lasix] 20 mg PO DAILY PRN 11/21/23 11/21/23 History Iron(Unknown Dose) 1 tab PO DAILY 11/21/23 11/21/23 History L.acidoph,Paracasei, B.lactis 1 cap PO DAILY 11/21/23 11/21/23 History [Probiotic] Multivitamins, Thera [Multivitamin 1 tab PO DAILY 11/21/23 11/21/23 History (formulary)] Omeprazole 20 mg PO DAILY 11/21/23 11/21/23 History SUMAtriptan succinate [Imitrex] 25 mg PO BID PRN 11/21/23 11/21/23 History Vitamin B-12(Unknown Dose) 1 tab PO DAILY 11/21/23 11/21/23 History Vitamin C(Unknown Dose) 1 tab PO DAILY 11/21/23 11/21/23 History Vitamin D(Unknown Dose) 1 tab PO DAILY 11/21/23 11/21/23 History dexAMETHasone [Decadron] 1 mg PO BID PRN 11/21/23 11/21/23 History levonorgestreL [Mirena] 1 unit IY [id number] 11/21/23 11/21/23 History predniSONE [Deltasone] 40 mg PO DAILY 11/21/23 11/21/23 History Allergies Allergy/AdvReac Type Severity Reaction Status Date / Time Iodinated Contrast Media Allergy Severe Anaphylaxis Verified 11/21/23 11:05 [Iodinated Contrast- Oral and IV Dye] hydrochlorothiazide Allergy Rash/Hives Verified 11/21/23 11:05 fluconazole [From Diflucan] AdvReac Severe Chest Pain Verified 11/21/23 11:05 atorvastatin [From Lipitor] AdvReac Intermediate Chest Pain Verified 11/21/23 11:05 Physical Exam Vitals: Vital Signs Temp Pulse Resp BP Pulse Ox FiO2 11/21/23 08:30 91 17 116/81 100 11/21/23 08:06 40 11/21/23 08:01 40 11/21/23 08:00 81 18 113/77 100 11/21/23 07:30 75 17 108/70 100 11/21/23 06:30 82 17 109/81 100 11/21/23 06:00 78 16 102/71 100 11/21/23 05:30 80 17 98/69 99 11/21/23 05:00 103 H 18 99/67 100 11/21/23 04:30 87 17 96/69 100 11/21/23 04:28 99.7 F H 11/21/23 04:00 86 17 105/74 99 11/21/23 03:30 97 15 110/80 100 11/21/23 03:00 82 15 110/79 98 11/21/23 02:30 78 17 112/81 100 11/21/23 02:00 78 16 112/78 100 11/21/23 01:30 91 15 98/69 100 11/21/23 01:26 40 11/21/23 01:00 94 15 98/73 100 11/21/23 00:31 85 14 107/69 100 11/21/23 00:20 90 15 101/72 100 11/21/23 00:00 99 19 122/76 100 11/20/23 23:49 101 H 16 127/69 99 11/20/23 23:19 103 H 18 126/74 99 11/20/23 22:29 70 11/20/23 22:08 94.6 F L 125 H 18 112/98 99 Intake and Output 11/20/23 11/21/2323 22:59 06:59 14:59 Intake Total 100.000 Balance 100.000 Intake: Intake, IV Titration 100.000 Amount propofoL 1,000 mg In 100.000 Empty Bag 1 bag @ 15 MCG/ KG/MIN 7.144 mls/hr IV . Q14H [facility] Rx#:[id number] Other: Weight 75 kg Results CBC & Chem 7: 11/21/23 04:31 11/21/23 04:31 Labs: Abnormal Lab Results - Last 24 Hours (Table) 11/20/23 11/20/23 11/20/23 Range/Units 22:10 22:10 23:34 WBC 11.8 H (3.8-10.6) k/uL Neutrophils # (Manual) (1.3-7.7) k/uL Lymphocytes # (Manual) 7.67 H (1.0-4.8) k/uL ABG pH 7.29 L (7.35-7.45) ABG HCO3 19 L (21-25) mmol/L Potassium 2.9 L (3.5-5.1) mmol/L Chloride 113 H (98-107) mmol/L Carbon Dioxide 17 L (22-30) mmol/L BUN 18 H (7-17) mg/dL Glucose 132 H (74-99) mg/dL Calcium 8.0 L (8.4-10.2) mg/dL Total Protein 6.1 L (6.3-8.2) g/dL Albumin 3.0 L (3.5-5.0) g/dL SARS-CoV-2 (PCR) (Not Detectd) 11/21/23 11/21/23 11/21/23 Range/Units 03:36 04:31 04:31 WBC 29.3 H (3.8-10.6) k/uL Neutrophils # (Manual) 29.00 H (1.3-7.7) k/uL Lymphocytes # (Manual) 0.59 L (1.0-4.8) k/uL ABG pH (7.35-7.45) ABG HCO3 (21-25) mmol/L Potassium (3.5-5.1) mmol/L Chloride 113 H (98-107) mmol/L Carbon Dioxide 18 L (22-30) mmol/L BUN 18 H (7-17) mg/dL Glucose 137 H (74-99) mg/dL Calcium (8.4-10.2) mg/dL Total Protein (6.3-8.2) g/dL Albumin (3.5-5.0) g/dL SARS-CoV-2 (PCR) Detected A (Not Detectd)
[2023-11-21] MEDS ORDERED: ACETAMINOPHEN TAB 500 MG TAB PO PRN (22:53)
[2023-11-21] MEDS: CALCIUM CARBONATE 500 MG CHEWABLE PO PRN (23:29)
[2023-11-22] MEDS: SODIUM CHLORIDE 0.9% 1,000 ML IV SCH (06:05)
[2023-11-22] MEDS: diphenhydrAMINE 50 MG/ML 1 ML VIAL IVP SCH (06:06)
[2023-11-22] MEDS: methylPREDNISolone SOD SUCCI 40 MG/ML 1 ML VIAL IV SCH (06:07)
[2023-11-22] MEDS: CHLORHEXIDINE GLUCONATE 15 ML CUP MUCOUS MEM SCH (08:46)
[2023-11-22] MEDS: FAMOTIDINE 20 MG/2 ML VIAL IV SCH (08:46)
[2023-11-22] MEDS: ENOXAPARIN 40 MG/0.4 ML SYRINGE SQ SCH (08:53)
[2023-11-22 08:59] VITALS: PULSE 68; RESP 18; TEMP 98.6
[2023-11-22] MEDS ORDERED: predniSONE 20 MG TAB PO SCH (10:00)
[2023-11-22] MEDS ORDERED: SODIUM BICARBONATE TAB 650 MG TAB PO SCH (10:45)
[2023-11-22] MEDS: CALCIUM CARBONATE 500 MG CHEWABLE PO PRN (11:11)
[2023-11-22 11:51] VITALS: BP 117/79
--- NOTE | 2023-11-22 12:33 | P.PN ---
Subjective Progress Note Date: 11/22/23 I am seeing this patient in consultation today 11/21/2023 in the emergency room trauma [place] [facility]. Patient is a 38-year-old female with past medical history significant for gastric bypass surgery, GI bleed, and carotid artery stenosis. According to the ER documentation the patient was reportedly diagnosed with RSV earlier in the week. She was then prescribed doxycycline. Approximately 20 minutes after taking her first dose, she was complaining of chest pain and shortness of breath. She then collapsed, this was witnessed by her son who contacted EMS. On arrival, the patient was reportedly found unresponsive and moaning. Blood pressures were severely hypotensive. On arrival to the emergency room, the patient was intubated by the ER physician. Patient was unable to protect her airway. No noticeable angioedema or rash. Patient was treated for a possible anaphylactic reaction. A CT of the chest, abdomen, and pelvis did not show any acute findings. No obvious central pulmonary embolism was found. No aortic dissection. Lungs unremarkable, no focal consolidations or evidence of pneumonia. No acute intra-abdominal abnormality. Brain CT and brain CTA unremarkable for any acute intracranial abnormalities. No significant flow-limiting carotid artery stenosis. EKG was consistent with sinus tachycardia, no obvious ST elevation. There was generalized mild ST depression. CBC from this morning shows a WBC count of 29.3, hemoglobin 12.8, hematocrit 37.9, platelets 193. BMP has a sodium 142, potassium 3.9, chloride 113, serum bicarb 18, BUN 18, creatinine 0.61. Normal saline infusing at 130 ML's per hour. Urine drug screen negative. Patient is currently intubated on mechanical ventilator settings of assist control, respiratory rate 12, tidal volume 450, FiO2 40%, PEEP of 5. ABGs done on the settings with an FiO2 of 70% show a pH of 7.29, pCO2 40, pO2 of 92. Post intubation chest x-ray shows endotracheal tube approximately 2 cm above the laura. Orogastric tube is coursing below the diaphragm. No focal infiltrates or evidence of pneumonia. Viral screen positive for COVID-19. Patient is sedated on propofol infusing at 50 mcg/kg/m. The Peak pressure is 22 and static airway pressure 13. Her rhythm appears normal sinus a bedside monitor. Blood pressures normalized after 1 L normal saline bolus. Not requiring any vasopressors. Patient will be transferred to intensive care unit once bed available. Note that contrary to the reported history, the patient tested positive for Covid 19. RSV was negative. CT a of the aorta including chest abdomen and pelvis was negative. The CTA of the brain was also negative and the CAT scan of the brain showed no acute abnormalities. The chest x-ray showed adequate positioning of 82 and there was no acute cardiac pulmonary abnormalities. Currently, the patient is normotensive. She has required fluid and current f luids are running at the rate of 130 mL an hour. She has not required any pressors. Cardiac rhythm is sinus. She remains on a mechanical ventilator. Blood gas from yesterday was noted. Repeat blood work from today shows a serum bicarb of 18, BUN of 18 and a creatinine of 0.6 and a white cycles of 29.3 and hemoglobin is at 12.8. The patient is currently on IV Solu-Medrol 40 mg every 6 hours. She is on Lovenox for DVT prophylaxis. She is also on normal saline at 1 30 mL's an hour. Propofol is running at 50 mcg/kg/m and she is calm and comfortable and hemodynamically stable. On today's evaluation of 11/22/2023, the patient is stable, extubated on room air oxygen. As mentioned, she tested positive for Covid 19. She'll be placed on Decadron 6 mg on a daily basis. No new complaints. Awake and alert and communicating. She remains clinically and hemodynamically stable. No facial swelling. No lip swelling. No stridor. No hypotension. No other specific complaints. No altered mentation. She was not taken to the intensive care unit and she was downgraded to medical floor. She remains on Lovenox portably prophylaxis. Objective - Vital Signs Vital signs: Vital Signs Temp 98.6 F 11/22/23 08:48 Pulse 68 11/22/23 08:48 Resp 18 11/22/23 08:48 BP 107/70 11/22/23 08:48 Pulse Ox 97 11/22/23 08:48 FiO2 40 11/21/23 11:27 Intake & Output 11/21/23 11/22/23 11/22/23 18:59 06:59 18:59 Intake Total 91.247 118 Balance 91.247 118 Weight 75 kg Intake: Intake, IV Titration 91.247 Amount propofoL 1,000 mg In 91.247 Empty Bag 1 bag @ 15 MCG/ KG/MIN 7.144 mls/hr IV . Q14H ORALIA Rx#:[id number] Oral 118 Other: # Voids 2 - Exam GENERAL EXAM: Patient is currently on room air oxygen, extubated. HEAD: Normocephalic and atraumatic. EYES: Normal reaction of pupils, equal size. NOSE: Clear with pink turbinates. THROAT: No erythema or exudates. NECK: No masses, no JVD. CHEST: No chest wall deformity. LUNGS: Equal air entry with no crackles, wheeze, rhonchi or dullness. Intubated to the mechanical ventilator, breathing above set rate. CVS: S1 and S2 normal with no audible murmur, regular rhythm. No extra heart sounds ABDOMEN: No hepatosplenomegaly, active bowel sounds, no guarding or rigidity. SPINE: No scoliosis or deformity SKIN: No rashes CENTRAL NERVOUS SYSTEMNeurologically, the patient is awake and alert and the patient does not have any focal neurological deficit. Cranial nerves are essentially intact. EXTREMITIES: There is no peripheral edema, clubbing, or cyanosis. Peripheral pulses are intact. - Labs CBC & Chem 7: 11/21/23 04:31 11/21/23 04:31 Labs: Abnormal Lab Results - Last 24 Hours (Table) 11/21/23 Range/Units 12:11 ABG pCO2 34 L (35-45) mmHg ABG pO2 179 H (83-108) mmHg ABG HCO3 20 L (21-25) mmol/L ABG O2 Saturation 99.2 H (94-97) % Assessment and Plan Plan: Possible anaphylactic reaction to doxycycline, currently hemodynamically stable and the patient is normotensive resuscitated with IV fluids are currently of KVO Acute hypoxic respiratory failure, recovered and the patient is currently on room air oxygen Acute COVID-19 infection, without evidence of COVID-19 pneumonia, according to the mother, the patient has had previous Covid 19 infections. Non-anion gap metabolic acidosis, currently on a oral bicarb supplement Leukocytosis, likely reactive, awaiting follow-up levels from today Hypokalemia, improved History of gastric bypass Chronic ongoing tobacco dependence Plan The patient is hemodynamically stable. Chest x-ray shows no acute abnormalities IV fluids are KVO Patient will be switched to oral Decadron to complete a seven-day course Continue Lovenox for DVT prophylaxis No need for antibiotics at this point in time Cultures were sent We'll continue to follow.
[2023-11-22] MEDS ORDERED: diphenhydrAMINE 25 MG CAP PO SCH (13:00)
[2023-11-22] MEDS ORDERED: FAMOTIDINE 20 MG TAB PO SCH (21:00)
--- NOTE | 2023-11-22 22:08 | P.DS ---
Providers Date of admission: 11/21/23 01:06 Expected date of discharge: 11/22/23 Attending physician: Wander Perez Consults: 11/21/23 01:06 Consult Physician Routine Consulting Provider: Dean Gonsales Consult Reason/Comments: ICU Do you want consulting provider notified?: Already Contacted Primary care physician: Becky Howell [facility] Course: Chief Complaint: Became unresponsive This is a pleasant 30 atrial patient who follows with Dr. Becky Howell. 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 Patient is due to. Surgery for a GI tract next week. Patient was diagnosed with RSV infection on November 07. Patient had gone into the walk-in clinic assisted living some respiratory symptoms. Dated a checks x- ray and told there was nothing much to prescribe her doxycycline. Patient came on to the first dosage. Patient started feeling her heart was racing palpitations started perspiring and then patient passed out. Patient 13-year-old son was there within called medical services. Initial blood pressure recorded was 54/27 the heart rate of 111. Pulse ox was 94%. Patient also noted to be short of breath. Patient also vomiting. Initial Ghislaine's coma scale was 5. Initial EKG showed sinus tachycardia. Patient was intubated in the ER. This morning patient is extubated. Propped up. Able to give a history. Patient's mother the bedside. 11/22/2023: Eating much better this morning. Tolerated diet. Patient be sent home on a taper dose of prednisone. Benadryl taper. Continue Pepcid. Patient is reminded that she is ALLERGIC to doxycycline. Anaphylactic shock Cleared by pulmonary Social history: Patient is a 13-year-old son at home. Works at the [employer]. Cutback back on smoking. Down to 1 cigarette a day. Denies use of any other recreational drugs. Smoking for 22 years half a pack a day until recently. Physical examination: VITAL SIGNS: 98.6, 68, 18, 117 with 79, 100% room air GENERAL: Comfortable EYES: Pupils equal. Conjunctiva normal. HEENT: External appearance of nose and ears normal, oral cavity grossly normal. NECK: JVD not raised; masses not palpable. HEART: First and second heart sounds are normal; no edema. LUNGS: Respiratory rate normal; fair entry. ABDOMEN: Soft, nontender, liver spleen not palpable, no masses palpable. PSYCH: Alert and oriented x3; mood and affect normal. MUSCULOSKELETAL:No Clubbing/cyanosis;muscles-grossly intact INVESTIGATIONS, reviewed in the clinical context: November 21: White count 29.3 hemoglobin 12.8 platelets 193 sodium 142 potassium 3.9 BUN 18 creatinine 0.61 COVID 19: PCR: Detected November 20: White count 11.8 hemoglobin 12.2 platelets 241 sodium 141 potassium 2.9 creatinine 0.58 HCG less than 2.4 Urine drug screen: Not detected EKG tracing personally reviewed by me-no sinus rhythm. Brain CT: Negative CT angiogram head and neck: Unremarkable Thoracic aorta CT: Negative Assessment and plan: -Possible severe anaphylactic reaction to doxycycline. Causing patient to be tachycardic hypotensive becoming unresponsive. Fluid resuscitated Charge on tapering dose of prednisone, Benadryl. Pepcid. -Acute hypoxic respiratory failure likely secondary to severe anaphylactic reaction. Patient was intubated overnight. Extubated this morning. Currently on nasal cannula.: Resolved -Acute COVID 19 infection . No associated hypoxia because of the same. -Metabolic acidosis -Leukocytosis reactive -History of bariatric surgery. -Pending surgery for a achalasia-that was scheduled for early next week. -Chronic nicotine dependence, cigarette smoker Patient counseled. Nicotine patch Disposition: Home Past Medical History Past Medical History: GI Bleed, Renal Disease Additional Past Medical History / Comment(s): Migraines, sinus problems, peptic ulcer H.pylori (positive), history of upper GI bleed, morbid obesity, blocked bilateral carotid arteries "one is 50% blocked/ the other 70%" per patient on 05/20/18, achalasia, back pain History of Any Multi-Drug Resistant Organisms: None Reported, MRSA Date of last positivie culture/infection: 2015 MDRO Source:: GROIN Past Surgical History: Bariatric Surgery, Section, Cholecystectomy, Heart Catheterization Additional Past Surgical History / Comment(s): Lithotripsy for kidney stone removal, heart catheterization in February at [facility] (on ) endoscopy, gastric sleeve 2018 Past Anesthesia/Blood Transfusion Reactions: No Reported Reaction Past Psychological History: Anxiety Additional Psychological History / Comment(s): Pt resides with her 8 yr old son. She is independent. Smoking Status: Current some day smoker Past Alcohol Use History: None Reported Additional Past Alcohol Use History / Comment(s): Pt started smoking in 2000 and is a half ppd smoker. Past Drug Use History: None Reported Plan - Discharge Summary Discharge Rx Participant: Yes New Discharge Prescriptions: New predniSONE 10 mg PO DAILY #30 tab diphenhydrAMINE [Benadryl] 25 mg PO QID #11 cap Acetaminophen Tab [Tylenol] 500 mg PO Q6HR PRN tab PRN Reason: Fever And/ Or Pain Continue SUMAtriptan succinate [Imitrex] 25 mg PO BID PRN PRN Reason: Migraine Headache L.acidoph,Paracasei, B.lactis [Probiotic] 1 cap PO DAILY levonorgestreL [Mirena] 1 unit IY [id number] Omeprazole 20 mg PO DAILY Famotidine 20 mg PO DAILY Biotin(Unknown Dose) 1 cap PO DAILY Benzonatate [Tessalon Perles] 200 mg PO BID PRN PRN Reason: Cough ALPRAZolam [Xanax] 0.25 mg PO DAILY PRN PRN Reason: Anxiety Vitamin D(Unknown Dose) 1 tab PO DAILY Vitamin B-12(Unknown Dose) 1 tab PO DAILY Vitamin C(Unknown Dose) 1 tab PO DAILY Multivitamins, Thera [Multivitamin (formulary)] 1 tab PO DAILY Iron(Unknown Dose) 1 tab PO DAILY Furosemide [Lasix] 20 mg PO DAILY PRN PRN Reason: Edema Clotrimazole [Clotrimazole AF] 1 applic TOPICAL BID Discontinued dexAMETHasone [Decadron] 1 mg PO BID PRN PRN Reason: Pain Doxycycline Hyclate 100 mg PO BID Azithromycin [Zithromax Z Pack] See Taper PO DIRECTED predniSONE [Deltasone] 40 mg PO DAILY Discharge Medication List ALPRAZolam [Xanax] 0.25 mg PO DAILY PRN 11/21/23 [History] Benzonatate [Tessalon Perles] 200 mg PO BID PRN 11/21/23 [History] Biotin(Unknown Dose) 1 cap PO DAILY 11/21/23 [History] Clotrimazole [Clotrimazole AF] 1 applic TOPICAL BID 11/21/23 [History] Famotidine 20 mg PO DAILY 11/21/23 [History] Furosemide [Lasix] 20 mg PO DAILY PRN 11/21/23 [History] Iron(Unknown Dose) 1 tab PO DAILY 11/21/23 [History] L.acidoph,Paracasei, B.lactis [Probiotic] 1 cap PO DAILY 11/21/23 [History] Multivitamins, Thera [Multivitamin (formulary)] 1 tab PO DAILY 11/21/23 [History] Omeprazole 20 mg PO DAILY 11/21/23 [History] SUMAtriptan succinate [Imitrex] 25 mg PO BID PRN 11/21/23 [History] Vitamin B-12(Unknown Dose) 1 tab PO DAILY 11/21/23 [History] Vitamin C(Unknown Dose) 1 tab PO DAILY 11/21/23 [History] Vitamin D(Unknown Dose) 1 tab PO DAILY 11/21/23 [History] levonorgestreL [Mirena] 1 unit IY [id number] 11/21/23 [History] Acetaminophen Tab [Tylenol] 500 mg PO Q6HR PRN tab 11/22/23 [Rx] diphenhydrAMINE [Benadryl] 25 mg PO QID #11 cap 11/22/23 [Rx] predniSONE 10 mg PO DAILY #30 tab 11/22/23 [Rx] Follow up Appointment(s)/Referral(s): Becky Howell MD [Primary Care Provider] - 1-2 days Activity/Diet/Wound Care/Special Instructions: allergy with severe anaphylaxis- DOXYCYCLINE Discharge Disposition: HOME SELF-CARE
[2023-11-23] MEDS ORDERED: dexAMETHasone 2 MG TAB PO SCH (09:00)
== END 2023-11-22 14:18 | disposition home or self-care (01) | DRG 811 ==
LOC: EC 22:06 → SUPCPDRO 22:06 → 2SICU 11-21 01:06 → 3SCARD 11-21 16:09
PROVIDERS: ADMIT Hospitalist; ATTEND Hospitalist
PROC: 0BH18EZ Insertion of Endotracheal Airway into Trachea, Via Natural or Artificial Opening Endoscopic (ICD-10-PCS; principal; 2023-11-20)
PROC: 5A1935Z Respiratory Ventilation, Less than 24 Consecutive Hours (ICD-10-PCS; 2023-11-20)
PROC: 0D9670Z Drainage of Stomach with Drainage Device, Via Natural or Artificial Opening (ICD-10-PCS; 2023-11-20)
DX: T88.6XXA Anaphylactic reaction due to adverse effect of correct drug or medicament properly administered, initial encounter (principal); J96.01 Acute respiratory failure with hypoxia; U07.1 COVID-19; E87.20 Acidosis, unspecified; K22.0 Achalasia of cardia; F17.210 Nicotine dependence, cigarettes, uncomplicated; T36.4X5A Adverse effect of tetracyclines, initial encounter; I44.0 Atrioventricular block, first degree; I65.23 Occlusion and stenosis of bilateral carotid arteries; E87.6 Hypokalemia; D72.828 Other elevated white blood cell count; Z86.16 Personal history of COVID-19; Z28.310 Unvaccinated for COVID-19; Z71.6 Tobacco abuse counseling; Z87.19 Personal history of other diseases of the digestive system; Z98.84 Bariatric surgery status; Z86.14 Personal history of Methicillin resistant Staphylococcus aureus infection; Z91.041 Radiographic dye allergy status; Z88.8 Allergy status to other drugs, medicaments and biological substances; Z88.1 Allergy status to other antibiotic agents; Z87.11 Personal history of peptic ulcer disease; Z98.61 Coronary angioplasty status; Z82.49 Family history of ischemic heart disease and other diseases of the circulatory system
CPT/HCPCS: 31500; 36415; 36600; 70450; 70496; 70498; 71045; 71275; 74174; 80048; 80053; 80306; 82805; 83735; 84484; 84702; 85025; 85610; 85730; 87636; 93005; 94002; 96372; 96374; 96375; 96376; 99291

== ENCOUNTER → 2024-03-11 | Outpatient (CLI) | payer OTHER ==
[2024-03-11 13:55] VITALS: BP 113/77; PULSE 68; RESP 16; TEMP 98.1
--- NOTE | 2024-03-11 13:59 | P.SLEEP ---
History of Present Illness H&P Date: 03/11/24 Is a 39-year-old female patient with known history of obstructive sleep apnea. The patient is coming in for evaluation. The patient had severe obstructive sleep apnea with an AHI of 122 and the diagnosis established back in 2019. She underwent a CPAP titration and the patient was titrated to a CPAP pressure of 11 cm of water. Nevertheless, treatment was not started and the patient opted to undergo bariatric surgery. The patient underwent a gastric sleeve procedure back in 2019 and following that she lost approximately 180 pounds. Noted at the time of her diagnosis with obstructive sleep apnea, she used to weigh around 345 pounds and currently she is down to 160. She felt well and she did not require CPAP therapy. Recently over the past 1 year, some of her symptoms are back and the patient is coming in for evaluation. Note that she is currently suffering from malnutrition and electrolyte and vitamin imbalance. She has chronic fatigue and tiredness. Increased sleepiness. Hair loss. She is also seeking an abdominoplasty following her bariatric surgery. She is having excessive fatigue and sleepiness. She is snoring and she is waking up choking and gasping for air. She is going to bed around 10 PM. Waking up 5:15 AM in the morning. She is averaging around 6 to 7 hours of sleep. She has an [place] score of 7. No significant heartburn. She has increased anxiety. She has difficulty with memory and concentration. No substance abuse. Alcoholism. No nocturnal se izure activity. No nocturnal chest pain. No sleep paralysis hallucination or cataplexy. The patient is requesting a reevaluation and she was referred to me in that regard. Review of Systems Constitutional: Reports daytime sleepiness, Reports fatigue, Reports weakness, Reports weight loss Eyes: denies as per HPI, denies blurred vision, denies bulging eye, denies decreased vision, denies diplopia, denies discharge, denies dry eye, denies irritation, denies itching, denies pain, denies photophobia, denies loss of peripheral vision, denies loss of vision, denies tunnel vision/blind spots Ears: deny: decreased hearing, ear discharge, earache, tinnitus Ears, nose, mouth and throat: Reports as per HPI Breasts: absent: as per HPI, change in shape, gynecomastia, masses, nipple discharge, pain, skin changes, swelling Cardiovascular: Reports as per HPI Gastrointestinal: Reports as per HPI Genitourinary: Reports as per HPI Menstruation: Reports as per HPI Musculoskeletal: Reports as per HPI Musculoskeletal: absent: ankle pain, ankle stiffness, ankle swelling Integumentary: Reports as per HPI Neurological: Reports as per HPI Psychiatric: Reports as per HPI Endocrine: Reports as per HPI, Reports fatigue Hematologic/Lymphatic: Reports as per HPI Allergic/Immunologic: Reports as per HPI Past Medical History Past Medical History: GERD/Reflux, GI Bleed, Sleep Apnea/CPAP/BIPAP Additional Past Medical History / Comment(s): Migraines, sinus problems, peptic ulcer H.pylori (positive), history of upper GI bleed, morbid obesity, blocked bilateral carotid arteries "one is 50% blocked/ the other 70%" per patient on 05/20/18, achalasia, back pain, History of Any Multi-Drug Resistant Organisms: None Reported, MRSA Date of last positivie culture/infection: 2022 MDRO Source:: Leg Past Surgical History: Bariatric Surgery, Section, Cholecystectomy, Heart Catheterization Additional Past Surgical History / Comment(s): Lithotripsy for kidney stone removal, heart catheterization in February at [facility] (on ) endoscopy, gastric sleeve 2018, colonoscopy/EGD Past Anesthesia/Blood Transfusion Reactions: No Reported Reaction Past Psychological History: Anxiety Additional Psychological History / Comment(s): Pt resides with her 8 yr old son. She is independent. Smoking Status: Current some day smoker Past Alcohol Use History: None Reported Additional Past Alcohol Use History / Comment(s): . Past Drug Use History: None Reported - Past Family History Father Family Medical History: Coronary Artery Disease (CAD), Myocardial Infarction ([place]) Additional Family Medical History / Comment(s): Father had a [place] at the age of 60yrs. Mother Family Medical History: Diabetes Mellitus, Hypertension, Osteoarthritis (OA) Medications and Allergies Home Medications Medication Instructions Recorded Confirmed Type ALPRAZolam [Xanax] 0.25 mg PO DAILY PRN 11/21/23 11/21/23 History Benzonatate [Tessalon Perles] 200 mg PO BID PRN 11/21/23 11/21/23 History Biotin(Unknown Dose) 1 cap PO DAILY 11/21/23 03/11/24 History Clotrimazole [Clotrimazole AF] 1 applic TOPICAL BID 11/21/23 11/21/23 History Famotidine 20 mg PO DAILY 11/21/23 11/21/23 History Furosemide [Lasix] 20 mg PO DAILY PRN 11/21/23 11/21/23 History Iron(Unknown Dose) 1 tab PO DAILY 11/21/23 11/21/23 History L.acidoph,Paracasei, B.lactis 1 cap PO DAILY 11/21/23 03/11/24 History [Probiotic] Multivitamins, Thera [Multivitamin 1 tab PO DAILY 11/21/23 03/11/24 History (formulary)] Omeprazole 20 mg PO DAILY 11/21/23 03/11/24 History SUMAtriptan succinate [Imitrex] 25 mg PO BID PRN 11/21/23 11/21/23 History Vitamin B-12(Unknown Dose) 1 tab PO DAILY 11/21/23 11/21/23 History Vitamin C(Unknown Dose) 1 tab PO DAILY 11/21/23 11/21/23 History Vitamin D(Unknown Dose) 1 tab PO DAILY 11/21/23 03/11/24 History levonorgestreL [Mirena] 1 unit IY [id number] 11/21/23 11/21/23 History Acetaminophen Tab [Tylenol] 500 mg PO Q6HR PRN tab 11/22/23 03/11/24 Rx Allergies Allergy/AdvReac Type Severity Reaction Status Date / Time Iodinated Contrast Media Allergy Severe Anaphylaxis Verified 11/21/23 11:05 [Iodinated Contrast- Oral and IV Dye] doxycycline Allergy Chest Pain Verified 11/21/23 20:00 hydrochlorothiazide Allergy Rash/Hives Verified 11/21/23 11:05 fluconazole [From Diflucan] AdvReac Severe Chest Pain Verified 11/21/23 11:05 atorvastatin [From Lipitor] AdvReac Intermediate Chest Pain Verified 11/21/23 11:05 Physical Exam Vitals: Vital Signs Temp Pulse Resp BP Pulse Ox 03/11/24 13:26 98.1 F 68 16 113/77 98 Intake and Output 03/10/24 03/11/24 03/11/24 22:59 06:59 14:59 Other: Weight 73.482 kg General appearance the patient is calm and comfortable no acute distress. The patient appeared well nourished and normally developed. Vital signs as documented. Head exam is unremarkable. No scleral icterus or corneal arcus noted. Neck is without jugular venous distension, thyromegaly, or carotid bruits. The patient has a Mallampati class I without any significant crowding of the posterior pharynx. Carotid upstrokes are brisk bilaterally. Lungs are clear to auscultation and percussion. Cardiac exam reveals the PMI to be normally sized and situated. Rhythm is regular. First and second heart sounds normal. No murmurs, rubs or gallops. Abdominal exam reveals normal bowel sounds, no masses, no organomegaly and no aortic enlargement. Extremities are nonedematous and both femoral and pedal pulses are normal. Examination of the skin revealed no evidence of significant rashes, suspicious appearing nevi or other concerning lesions. The patient has redundant skin over the anterior abdominal wall related to massive weight loss. Neurologically, the patient is awake and alert and the patient does not have any focal neurological deficit. Cranial nerves are essentially intact. Assessment and Plan Plan: Assessment Obstructive sleep apnea with a baseline AHI of 122 and he states that it was done back in 2018 and the patient was titrated to a CPAP pressure of 11 cm of water. At the time of her diagnosis, the patient used to weigh 3 and 45 pounds and the patient's body mass index is 36.1. Patient is post-bariatric surgery and she has lost a total of 180 pounds and she is currently coming in for evaluation Excessive fatigue and sleepiness. Rule out residual obstructive sleep apnea despite bariatric surgery and extensive weight loss. Other possibilities could include vitamin electrolyte imbalance having excessive fatigue as such, further evaluation will be needed Migraines History of peptic ulcer disease with H. pylori positive and previous history of GI bleed Carotid artery disease Chronic anxiety Spinal stenosis Degenerative disc disease Iron deficiency and the patient is currently on iron supplements Plan Optimize sleep hygiene measures. Maintain regular sleep schedule. Send sleep hours on average of 7 to 8 hours per night. Replace vitamins and electrolytes. Perform home sleep study to evaluate the presence of obstructive sleep apnea and decide if treatment is needed. Patient is a bit hesitant to use CPAP therapy should there be any residual from obstructive sleep apnea on this patient. Upon decision will be done based on the results of the home sleep study. Sleep Note - Sleep Data ESS Total: 7 - Sleep Note Sleep Note: Temperature: 98.1 F Pulse Rate: 68 Respiratory Rate: 16 Blood Pressure: 113/77 SpO2: 98 Height: 5 ft 5 in Weight: 73.482 kg BMI: Neck Circumference: 13
== END ==
LOC: 3 N SLEEP 13:01
PROVIDERS: ATTEND Internal Medicine Critical Care Medicine
DX: G47.33 Obstructive sleep apnea (adult) (pediatric) (principal); G47.10 Hypersomnia, unspecified; R53.83 Other fatigue; G43.909 Migraine, unspecified, not intractable, without status migrainosus; F41.9 Anxiety disorder, unspecified; I77.9 Disorder of arteries and arterioles, unspecified; M51.9 Unspecified thoracic, thoracolumbar and lumbosacral intervertebral disc disorder; M54.9 Dorsalgia, unspecified; M48.061 Spinal stenosis, lumbar region without neurogenic claudication; E61.1 Iron deficiency; F17.200 Nicotine dependence, unspecified, uncomplicated; Z87.11 Personal history of peptic ulcer disease; Z87.19 Personal history of other diseases of the digestive system; Z91.041 Radiographic dye allergy status; Z88.8 Allergy status to other drugs, medicaments and biological substances; Z88.5 Allergy status to narcotic agent; Z88.1 Allergy status to other antibiotic agents
CPT/HCPCS: 99211

== ENCOUNTER → 2024-03-19 | Outpatient (CLI) | payer OTHER ==
[2024-03-19 16:57] VITALS: BP 108/75; PULSE 77; RESP 16; TEMP 98.4; BMI 25.9
--- NOTE | 2024-03-19 17:18 | P.BASOAP ---
Subjective Progress Note Date: 03/19/24 She has abdominal pain upper and lower abdomen. Rcommend EGD and labs. Wants panni. Weight is up and down. Objective - Vital Signs Vital signs: Vital Signs Temp 98.4 F 03/19/24 16:41 Pulse 77 03/19/24 16:41 Resp 16 03/19/24 16:41 BP 108/75 03/19/24 16:41 Pulse Ox FiO2 Intake & Output 03/18/24 03/19/24 03/19/24 18:59 06:59 18:59 Weight 73.936 kg Assessment/Plan Plan: Date: 03/19/24 Initial Weight: 133.81 kg Initial BMI: 46.9 Current Weight: 73.936 kg Current BMI: 25.9 Type of Surgery: Vertical Sleeve Gastrectomy Total Volume in Band: Previous Volume: Volume Removed: Volume Added: Band Size:
== END ==
LOC: BARWHC3 15:48
PROVIDERS: ATTEND Surgery Plastic and Reconstructive Surgery
DX: E66.01 Morbid (severe) obesity due to excess calories (principal); R10.10 Upper abdominal pain, unspecified; R10.30 Lower abdominal pain, unspecified; F17.200 Nicotine dependence, unspecified, uncomplicated; Z98.84 Bariatric surgery status; Z90.3 Acquired absence of stomach [part of]; Z91.041 Radiographic dye allergy status; Z88.1 Allergy status to other antibiotic agents; Z88.5 Allergy status to narcotic agent; Z88.8 Allergy status to other drugs, medicaments and biological substances; Z68.25 Body mass index [BMI] 25.0-25.9, adult
CPT/HCPCS: 99211

== ENCOUNTER → 2024-03-24 | Outpatient (CLI) | payer OTHER ==
[2024-03-24 14:26] LABS: Partial Thromboplastin Time 22.4 sec (22.0-30.0); Prothrombin Time 11.2 sec (10.0-12.5)
[2024-03-24 22:17] LABS: Prealbumin 23.3 mg/dL (18.0-42.0)
[2024-03-24 22:29] LABS: HCT 42.6 % (37.2-46.3); MCHC 32.9 g/dL (32.0-37.0); MCV 91.4 FL (80.0-97.0); Mean Platelet Volume 11.5 FL (9.5-12.2); NRBC Per 100 WBC 0 X 10*3/uL (0.00-0.01); Platelet Count 217 X 10*3/uL (140-440); RBC 4.66 X 10*6/uL (4.10-5.20); RDW 12.6 % (11.5-14.5); WBC 8.49 X 10*3/uL (4.50-10.00)
[2024-03-24 22:52] LABS: % Iron Saturation 28.21 (12.00-45.00); BUN/Creat Ratio 20.14 Ratio (12.00-20.00); Blood Urea Nitrogen 14.1 mg/dL (9.0-27.0); Chol/HDL Ratio 2.98 Ratio; Glucose 80 mg/dL (70-110); Iron 99 UG/DL (50-170); LDL Cholesterol,Calculated 113.5 mg/dL (0.0-131.0); Magnesium 1.9 mg/dL (1.5-2.4); Phosphorus 4.1 mg/dL (2.4-5.1); Total Iron Binding Capacity 351 UG/DL (228-460); VLDL Calculation 11.98 mg/dL (5.00-40.00)
[2024-03-24 22:53] LABS: ALT 17 U/L (8-44); AST 22 U/L (13-35); Albumin 4.9 g/dL (3.8-4.9); Albumin/Globulin Ratio 1.53 Ratio (1.60-3.17); Alkaline Phosphatase 54 U/L (41-126); Calcium 10.6 mg/dL (8.7-10.3); Carbon Dioxide 18.7 mmol/L (21.6-31.8); Chloride 101 mmol/L (96-109); Ferritin 86.5 ng/mL (10.0-291.0); Globulin 3.2 g/dL (1.6-3.3); Potassium 4.1 mmol/L (3.5-5.5); Sodium 137 mmol/L (135-145); Total Bilirubin 0.8 mg/dL (0.3-1.2); Total Protein 8.1 g/dL (6.2-8.2)
[2024-03-25 09:06] LABS: Zinc, Serum 94 ug/dL (60-130)
[2024-03-26 06:29] LABS: Vit B1(Thiamine) 103 ug/L (38-122)
== END | disposition home or self-care (01) ==
LOC: LABWHC1 13:17
PROVIDERS: ATTEND Surgery Plastic and Reconstructive Surgery
DX: E66.01 Morbid (severe) obesity due to excess calories (principal); E89.1 Postprocedural hypoinsulinemia; D50.8 Other iron deficiency anemias; K91.2 Postsurgical malabsorption, not elsewhere classified; E44.0 Moderate protein-calorie malnutrition; E45 Retarded development following protein-calorie malnutrition; E55.9 Vitamin D deficiency, unspecified; K74.1 Hepatic sclerosis; N19 Unspecified kidney failure; T56.894A Toxic effect of other metals, undetermined, initial encounter; K50.80 Crohn's disease of both small and large intestine without complications
CPT/HCPCS: 36415; 80053; 80061; 82306; 82525; 82607; 82728; 82746; 83036; 83540; 83550; 83735; 83970; 84100; 84134; 84255; 84425; 84443; 84590; 84630; 85027; 85610; 85730

== ENCOUNTER → 2024-03-24 | Outpatient (CLI) | payer OTHER | LOC: 3 N SLEEP 13:07 | PROVIDERS: ATTEND Internal Medicine Critical Care Medicine | DX: G47.33 Obstructive sleep apnea (adult) (pediatric) (principal); R53.83 Other fatigue; G47.10 Hypersomnia, unspecified; G43.909 Migraine, unspecified, not intractable, without status migrainosus; I77.9 Disorder of arteries and arterioles, unspecified; F41.9 Anxiety disorder, unspecified; M48.00 Spinal stenosis, site unspecified; M51.9 Unspecified thoracic, thoracolumbar and lumbosacral intervertebral disc disorder; M54.9 Dorsalgia, unspecified; D50.9 Iron deficiency anemia, unspecified; F17.200 Nicotine dependence, unspecified, uncomplicated; Z87.11 Personal history of peptic ulcer disease; Z87.19 Personal history of other diseases of the digestive system; Z86.19 Personal history of other infectious and parasitic diseases; Z98.84 Bariatric surgery status; Z90.3 Acquired absence of stomach [part of]; Z91.041 Radiographic dye allergy status; Z88.8 Allergy status to other drugs, medicaments and biological substances; Z88.5 Allergy status to narcotic agent; Z88.1 Allergy status to other antibiotic agents ==

== ENCOUNTER → 2024-06-24 | Outpatient (CLI) | payer OTHER ==
--- NOTE | 2024-06-24 20:43 | US ---
EXAMINATION TYPE: US pelvis complete transvag DATE OF EXAM: 06/24/2024 COMPARISON: CT: 04/08/21 CLINICAL INDICATION: Female, 39 years old with history of R10.2 PELVIC AND PERINEAL PAIN N83.209 UNS PECIFIE; pelvic pain and irregular periods. Pt has had IUD in for 5 years. TECHNIQUE: Transvaginal (TV) and Transabdominal (TA) . Transabdominal sonographic images of the pel vis were acquired. Transvaginal sonographic images were medically necessary to better assess the fol lowing anatomy: Ovaries Date of LMP: 06/14/24 EXAM MEASUREMENTS: Uterus: 9.2 x 5.3 x 4.0 cm Endometrial Stripe: 0.5 cm Right Ovary: 3.3 x 1.9 x 2.9 cm Left Ovary: 2.7 x 1.9 x 1.6 cm 1. Uterus: Anteverted fluid in cervix, nabothian cysts seen 2. Endometrium: IUD seems to be in place 3. Right Ovary: dominant follicle seen or small simple right ovarian cyst. 4. Left Ovary: wnl 5. Bilateral Adnexa: excessive bowel gas seen 6. Posterior cul-de-sac: wnl IMPRESSION: 1. Intrauterine device is noted. There is a small amount of fluid within the cervix which is nonspeci fic correlate clinically. 2. Small simple right ovarian cyst measuring 1.8 cm.
== END | disposition home or self-care (01) ==
LOC: RADUSWWP 06:55
PROVIDERS: ATTEND Family Medicine
DX: N83.291 Other ovarian cyst, right side (principal); N92.6 Irregular menstruation, unspecified
CPT/HCPCS: 76830; 76856

== ENCOUNTER → 2024-12-02 | Outpatient (CLI) | payer OTHER ==
--- NOTE | 2024-12-02 10:06 | US ---
EXAMINATION TYPE: US transvaginal plus Doppler DATE OF EXAM: 12/02/2024 COMPARISON: US 2023 CLINICAL INDICATION: Female, 39 years old with history of R37.9 HYPERGLYCEMIA, UNSPECIFIED; Mirena IU D placed 5 years ago. Patient states she has been having left-sided pelvic pain since her endometrios is surgery in July 2024. . Patient's last period lasted for 2 weeks. TECHNIQUE: Transvaginal (TV). Doppler imaging: Color performed. Spectral performed for left ovary due to patient's pain left side. FINDINGS: Date of LMP: 11/10/2024 EXAM MEASUREMENTS: Uterus: 9.9 x 5.5 x 3.8 cm Endometrial Stripe: 0.46 cm Right Ovary: 3.4 x 1.7 x 2.1 cm Left Ovary: 4.3 x 2.4 x 2.2 cm for a volume of 11.9 mL 1. Uterus: Anteverted. Mildly heterogeneous myometrium. Multiple small cervical nabothian cysts. 2. Endometrium: Measures 0.46 cm. IUD seen, appears to be appropriately positioned. *Trace sliver of fluid within the uterine cavity measuring 1.6 x 1.8 x 0.3 cm. 3. Right Ovary: Anechoic follicle seen= 8 mm. 4. Left Ovary: 2 complex areas seen, larger: 2.4 x 2.1 x 1.6 cm. Possible hemorrhagic follicle or he morrhagic corpus luteum. Venous and arterial waveforms shown. 5. Bilateral Adnexa: Mild free fluid seen superior to the uterus. 6. Posterior cul-de-sac: Mild free fluid seen within. IMPRESSION: 1. 2 complex areas within the left ovary, largest measuring 2.4 cm. Suspect hemorrhagic cysts/follicl es. Recommend follow-up ultrasound in 6-8 weeks to assess for involution. 2. Additional Doppler/spectral waveform assessment of the left ovary. No sonographic evidence of ovar nila torsion. 3. Mild pelvic free fluid probably physiologic. 4. IUD appears to be a peripherally situated within the uterine cavity. Trace fluid within the uterin e cavity probably physiologic. [facility], Workstation: [id number], 12/02/2024 10:03 AM
== END | disposition home or self-care (01) ==
LOC: RADUSWWP 08:18
PROVIDERS: ATTEND Family Medicine
DX: R10.2 Pelvic and perineal pain (principal); N88.8 Other specified noninflammatory disorders of cervix uteri
CPT/HCPCS: 76830

== ENCOUNTER → 2025-01-07 | Outpatient (CLI) | payer OTHER ==
[2025-01-08 13:14] VITALS: BMI 25.1
--- NOTE | 2025-02-06 19:38 | P.BASOAP ---
Subjective Progress Note Date: 01/07/25 Left without being seen by provider Assessment/Plan Plan: Date: 01/07/25 Initial Weight: 133.81 kg Initial BMI: 46.9 Current Weight: 71.668 kg Current BMI: 25.1 Type of Surgery: Total Volume in Band: Previous Volume: Volume Removed: Volume Added: Band Size:
== END ==
LOC: BARWHC3 13:54
PROVIDERS: ATTEND Surgery Plastic and Reconstructive Surgery
DX: Z53.9 Procedure and treatment not carried out, unspecified reason (principal)
CPT/HCPCS: 99211

== ENCOUNTER → 2025-01-20 | Outpatient (CLI) | payer OTHER ==
--- NOTE | 2025-01-20 13:59 | US ---
EXAMINATION TYPE: US transvaginal DATE OF EXAM: 01/20/2025 COMPARISON: US 12/02/2024, US 06/24/2024 CLINICAL INDICATION: Female, 40 years old with history of N83.202 HEMORRHAGIC CYST OF LEFT OVARY; His tory of hemorrhagic cyst on the left ovary, patient has IUD TECHNIQUE: Transvaginal (TV). Transvaginal grayscale sonographic images of the pelvis were acquired. Doppler imaging: Not performed. FINDINGS: Date of LMP: unknown, IUD placed in July 2024 EXAM MEASUREMENTS: Uterus: 9.3 x 4.2 x 3.9 cm Endometrial Stripe: 0.5 cm Right Ovary: 2.6 x 2.0 x 1.8 cm Left Ovary: 1.6 x 2.3 x 1.3 cm 1. Uterus: Anteverted wnl 2. Endometrium: wnl, IUD seen 3. Right Ovary: wnl 4. Left Ovary: wnl, cystic area appears to be involuted measuring 1.3 x 0.9 x 0.8 cm 5. Bilateral Adnexa: wnl, vascularity noted in the left adnexa 6. Posterior cul-de-sac: wnl, small amount of fluid visualized Stable and satisfactory positioning of IUD. IMPRESSION: Resolving 1.3 cm left ovarian nonsimple suspected hemorrhagic cyst. No new suspicious adn exal masses. [facility], , 01/20/2025 1:57 PM
== END | disposition home or self-care (01) ==
LOC: RADUSWWP 12:52
PROVIDERS: ATTEND Family Medicine
DX: N83.202 Unspecified ovarian cyst, left side (principal); Z97.5 Presence of (intrauterine) contraceptive device
CPT/HCPCS: 76830

== ENCOUNTER 2025-03-30 08:16 | Day surgery (SDC) | payer OTHER ==
[2025-03-26 15:16] VITALS: BMI 27.4
--- NOTE | 2025-03-30 08:28 | P.GSHP ---
History of Present Illness H&P Date: 03/30/25 CHIEF COMPLAINT: GERD, dysphagia and change in bowel habits HISTORY OF PRESENT ILLNESS: The patient is a 40-year-old female who presents with gastroesophageal reflux disease, dysphagia and change in bowel habits. Upper and lower endoscopy were offered for further evaluation and management. PAST MEDICAL HISTORY: Please see list. PAST SURGICAL HISTORY: Please see list. MEDICATIONS: Please see list. ALLERGIES: Please see list. SOCIAL HISTORY: No illicit drug use FAMILY HISTORY: No reports of Crohn disease or ulcerative colitis. REVIEW OF ORGAN SYSTEMS: CONSTITUTIONAL: No reports of fevers or chills. PHYSICAL EXAM: VITAL SIGNS: Stable GENERAL: Well-developed pleasant in no acute distress. HEENT: No scleral icterus. Extraocular movements grossly intact. Moist buccal mucosa. NECK: Supple without lymphadenopathy. CHEST: Unlabored respirations. Equal bilateral excursions. CARDIOVASCULAR: Regular rate and rhythm. Distal 2+ pulses. ABDOMEN: Soft, nondistended. MUSCULOSKELETAL: No clubbing, cyanosis, or edema. ASSESSMENT: 1. Gastroesophageal reflux disease 2. Change in bowel habits 3. Dysphagia PLAN: 1. Recommend proceeding with an upper and lower endoscopy Past Medical History Past Medical History: GERD/Reflux, GI Bleed, Musculoskeletal Disorder, Sleep Apnea/CPAP/BIPAP Additional Past Medical History / Comment(s): Migraines, sinus problems, hx peptic ulcer, hx H.pylori, hx upper GI bleed, achalsia,blocked bilateral carotid arteries "one is 50% blocked/ the other 70%" per patient on 05/20/18, back pain, neuropathy, spinal stenosis, varicose veins. History of Any Multi-Drug Resistant Organisms: None Reported, MRSA Date of last positivie culture/infection: 2022 MDRO Source:: Leg Past Surgical History: Bariatric Surgery, Section, Cholecystectomy, Heart Catheterization Additional Past Surgical History / Comment(s): Lithotripsy for kidney stone removal, gastric sleeve 2019, colonoscopy/EGD, endometriosis surgery. Past Anesthesia/Blood Transfusion Reactions: No Reported Reaction Smoking Status: Current some day smoker - Past Family History Father Family Medical History: Coronary Artery Disease (CAD), Myocardial Infarction (HI), Pulmonary Embolus Additional Family Medical History / Comment(s): Father had a HI at the age of 60yrs. Mother Family Medical History: Diabetes Mellitus, Deep Vein Thrombosis (DVT), Hypertension, Osteoarthritis (OA) Medications and Allergies Home Medications Medication Instructions Recorded Confirmed Type Acetaminophen [Tylenol Extra 500 mg PO DIRECTED PRN 03/26/25 03/26/25 History Strength] Tums (Unknown Dose) 1 tab PO DIRECTED PRN 03/26/25 03/26/25 History Allergies Allergy/AdvReac Type Severity Reaction Status Date / Time Iodinated Contrast Media Allergy Severe Anaphylaxis Verified 03/26/25 14:58 [Iodinated Contrast- Oral and IV Dye] doxycycline Allergy Chest Pain Verified 03/26/25 14:58 hydrochlorothiazide Allergy Rash/Hives Verified 03/26/25 14:58 fluconazole [From Diflucan] AdvReac Severe Chest Pain Verified 03/26/25 14:58 atorvastatin [From Lipitor] AdvReac Intermediate Chest Pain Verified 03/26/25 14:58
[2025-03-30 08:41] VITALS: TEMP 97.8
[2025-03-30] MEDS: IV FLUID CONTINUATION 1,000 ML IV ONE (08:45)
[2025-03-30] MEDS: LIDOCAINE 1% (10MG/ML) FOR IV START INTRADERMA STA (08:45)
[2025-03-30] MEDS: LACTATED RINGERS 1,000 ML IV SCH (08:45)
[2025-03-30] MEDS ORDERED: LIDOCAINE 1% INJ 10MG/ML (20 ML MDV) ONE (09:04)
[2025-03-30] MEDS ORDERED: PROPOFOL 10 MG/ML 20 ML VIAL IV ONE (09:04)
--- NOTE | 2025-03-30 10:18 | P.PCN ---
Date of Procedure: 03/30/25 Description of Procedure: PREOPERATIVE DIAGNOSIS: Dysphagia. Gastroesophageal reflux disease. s/p sleeve gastrectomy. POSTOPERATIVE DIAGNOSIS: Esophageal stricture s/p vertical sleeve gastrectomy. Acute esophageal ulcer with bleeding Gastroesophageal reflux disease with erosive esophagitis Acute gastritis OPERATION: Esophagogastroduodenoscopy with rigid dilation, 54-Finnish Esophagogastroduodenoscopy with cold forcep biopsies esophagus, antrum, duodenum SURGEON: Grace Guardado MD ANESTHESIA: MAC. INDICATIONS: The patient is a 40-year-old female who presents with a history of dysphagia, sleeve gastrectomy including gastroesophageal reflux disease. Benefits and risks of the procedure were described. Informed consent was obtained. DESCRIPTION: The patient was brought into the endoscopy suite and laid in the left lateral decubitus position. After a timeout was confirmed, the procedure was initiated. An Olympus gastroscope was passed along the posterior oropharynx down to the distal esophagus where the squamocolumnar junction was unremarkable. Multiple tertiary esophageal contractions were identified consistent with esophageal dysmotility. No large hiatal hernias were identified. The gastric pouch was entered. No gastric strictures were identified along her sleeve. The scope w as removed as a guidewire was placed. A guidewire followed by 54-Finnish rigid dilator for 2 minutes was placed. Dilators were removed with guidewire. The upper scope was reinserted. The mucosa was intact. No full-thickness injury was encountered. Cold forcep biopsies of the duodenum, antrum, esophagus were obtained. The GI tract was desufflated. The patient tolerated the procedure well. FINDINGS: LA grade C erosive esophagitis. Rigid dilation 54-Finnish achieved for esophageal stricture Acute gastritis with biopsies obtained Acute esophageal ulcers with biopsies obtained Biopsies obtained of the duodenum Tortuosity of gastric sleeve identified with narrowing along the angularis incisura RECOMMENDATIONS: Recommend 2 to 4 weeks of Carafate omeprazole May need alternative treatment for sleeve gastrectomy such as conversion to gastric bypass
--- NOTE | 2025-03-30 10:23 | P.PCN ---
Date of Procedure: 03/30/25 Description of Procedure: PREOPERATIVE DIAGNOSIS: Diverticulitis with left lower quadrant abdominal pain POSTOPERATIVE DIAGNOSIS: Colonoscopy screening. Diverticulosis, sigmoid colon OPERATION: Colonoscopy to the cecum, ileocecal valve and appendiceal orifice. SURGEON: Grace Guardado MD. ANESTHESIA: MAC. INDICATIONS: The patient is a 40-year-old female who presents for colonoscopy screening. Benefits and risks were described and informed consent was obtained. DESCRIPTION OF PROCEDURE: The patient had undergone Suprep. The patient had been brought into the operating room and laid in the left lateral decubitus position. After adequate intravenous sedation, the rectum was examined with 2% lidocaine jelly. No external hemorrhoids were encountered. The rectal tone was within normal limits. No lesions were palpated in the rectal vault. An Olympus colonoscope was advanced until the cecum, ileocecal valve and appendiceal orifice were clearly viewed. The prep was excellent. Sigmoid scattered diverticulosis was encountered. Highly redundant sigmoid colon identified. No colonic polyps were found. No evidence of focal colitis was found. Retroflexion of the scope demonstrated grade 1 internal hemorrhoids without active bleeding or inflammation. The colon was desufflated. The patient had tolerated the procedure well. Withdrawal time was over 6 minutes. FINDINGS: Aronchick preparation quality scale 1 (1-5) Internal hemorrhoids, grade 1 No external prolapsed hemorrhoids. No arteriovenous malformations. No adenomatous polyps. No focal colitis. Highly redundant sigmoid colon with diverticulosis, scattered RECOMMENDATIONS: Lower endoscopy in 5 [id number] Plan - Discharge Summary Discharge Rx Participant: No New Discharge Prescriptions: New Sucralfate [Carafate] 1 gm PO BID #30 tablet Omeprazole [PriLOSEC] 40 mg PO DAILY #14 cap Continue Tums (Unknown Dose) 1 tab PO DIRECTED PRN PRN Reason: Indigestion Acetaminophen [Tylenol Extra Strength] 500 mg PO DIRECTED PRN PRN Reason: Pain Discharge Medication List Acetaminophen [Tylenol Extra Strength] 500 mg PO DIRECTED PRN 03/26/25 [History] Tums (Unknown Dose) 1 tab PO DIRECTED PRN 03/26/25 [History] Omeprazole [PriLOSEC] 40 mg PO DAILY #14 cap 03/30/25 [Rx] Sucralfate [Carafate] 1 gm PO BID #30 tablet 03/30/25 [Rx] Follow up Appointment(s)/Referral(s): [facility] [NON-STAFF] - 04/15/25 3:00 pm Patient Instructions/Handouts: Peptic Ulcer (DC), Diverticulosis Diet (GEN) Activity/Diet/Wound Care/Special Instructions: Repeat colonoscopy 5 years, 2030 Discharge Disposition: HOME SELF-CARE
[2025-03-30] MEDS: ACETAMINOPHEN TAB 500 MG TAB PO STA (10:55)
[2025-03-30 10:58] VITALS: BP 127/81; PULSE 57; RESP 18
== END 2025-03-30 11:15 | disposition home or self-care (01) ==
LOC: ORWHC2ENDO 08:16
PROVIDERS: ATTEND Surgery Plastic and Reconstructive Surgery
DX: Z12.11 Encounter for screening for malignant neoplasm of colon (principal); K57.30 Diverticulosis of large intestine without perforation or abscess without bleeding; K64.0 First degree hemorrhoids; K21.00 Gastro-esophageal reflux disease with esophagitis, without bleeding; K22.11 Ulcer of esophagus with bleeding; K22.2 Esophageal obstruction; K29.00 Acute gastritis without bleeding; K29.50 Unspecified chronic gastritis without bleeding; K95.89 Other complications of other bariatric procedure; G47.33 Obstructive sleep apnea (adult) (pediatric); I73.9 Peripheral vascular disease, unspecified; F17.200 Nicotine dependence, unspecified, uncomplicated; Z86.14 Personal history of Methicillin resistant Staphylococcus aureus infection; Z91.041 Radiographic dye allergy status; Z88.1 Allergy status to other antibiotic agents; Z88.8 Allergy status to other drugs, medicaments and biological substances
CPT/HCPCS: 81025; 88305; 88312; 45378; 43239; 43248; J2003; J2704

== ENCOUNTER → 2025-05-13 | Outpatient (CLI) | payer OTHER ==
[2025-05-13 17:14] VITALS: BP 135/92; PULSE 86; RESP 16; TEMP 98.3; BMI 26.0
--- NOTE | 2025-05-13 17:47 | P.BASOAP ---
Subjective Progress Note Date: 05/13/25 She is still bleeding and has endometriosis. Spinach Vitamin K and potassium. Need more potassium. Spinach. Weight is within in Objective - Vital Signs Vital signs: Vital Signs Temp 98.3 F 05/13/25 17:05 Pulse 86 05/13/25 17:05 Resp 16 05/13/25 17:05 BP 135/92 05/13/25 17:05 Pulse Ox FiO2 Intake & Output 05/12/25 05/13/25 05/13/25 18:59 06:59 18:59 Weight 74.389 kg Assessment/Plan Plan: Date: 05/13/25 Initial Weight: 133.81 kg Initial BMI: 46.9 Current Weight: 74.389 kg Current BMI: 26.0 Type of Surgery: Total Volume in Band: Previous Volume: Volume Removed: Volume Added: Band Size:
== END ==
LOC: BARWHC3 15:59
PROVIDERS: ATTEND Surgery Plastic and Reconstructive Surgery
DX: E66.01 Morbid (severe) obesity due to excess calories (principal); F17.200 Nicotine dependence, unspecified, uncomplicated; Z91.041 Radiographic dye allergy status; Z88.8 Allergy status to other drugs, medicaments and biological substances; Z68.26 Body mass index [BMI] 26.0-26.9, adult
CPT/HCPCS: 99211

== ENCOUNTER → 2025-06-01 | Outpatient (CLI) | payer OTHER ==
--- NOTE | 2025-06-01 20:49 | US ---
EXAMINATION TYPE: US pelvis complete transvag DATE OF EXAM: 06/01/2025 COMPARISON: 01/20/25 CLINICAL INDICATION: Female, 40 years old with history of N93.9 ABNORMAL UTERINE AND VAGINAL BLEEDING , UNSPE; abnormal bleeding TECHNIQUE: Transvaginal (TV) and Transabdominal (TA) . Transabdominal grayscale sonographic images of the pelvis were acquired. Transvaginal sonographic im ages were medically necessary to better assess the following anatomy: ovaries Doppler imaging: Not performed. FINDINGS: Date of LMP: Mid April EXAM MEASUREMENTS: Uterus: 10.0 x 5.6 x 4.0 cm Endometrial Stripe: 0.5 cm Right Ovary: 2.7 x 2.1 x 1.6 cm Left Ovary: 3.2 x 2.7 x 2.1 cm 1. Uterus: Anteverted wnl 2. Endometrium: wnl, IUD appears to be in place 3. Right Ovary: wnl 4. Left Ovary: complex area seen measuring 2.0 x 1.7 x 1.6cm 5. Bilateral Adnexa: excessive peristalsing bowel seen 6. Posterior cul-de-sac: wnl IMPRESSION: 1. No evidence for acute process. 2. IUD in appropriate position. 3. Endometrium within normal limits for thickness. [facility], , 06/01/2025 8:47 PM
== END | disposition home or self-care (01) ==
LOC: RADUSWWP 15:58
PROVIDERS: ATTEND Family Medicine
DX: I83.813 Varicose veins of bilateral lower extremities with pain (principal); N93.9 Abnormal uterine and vaginal bleeding, unspecified
CPT/HCPCS: 76830; 76856